=== PATIENT | male | born 1995 | race African-American/Black ===

== ENCOUNTER 2021-01-29 19:08 | Emergency (ER) | payer BC, SELFPAY ==
--- NOTE | ~2021-01-29 | XR_ITS ---
EXAMINATION: XR finger 3rd RT min 2V EXAM DATE: 01/29/2021 19:30 INDICATION: rt 3rd digit on rt hand, swelling at middle interphalangeal joint. No known recent injury provided at this time. TECHNIQUE: Right 3rd finger frontal, lateral and oblique projections obtained and reviewed. There is no prior study for comparison. FINDINGS: There is swelling over the right 3rd proximal interphalangeal joint. Possible small amount of periarticular erosion at the head of the right 3rd proximal phalanx. This finding has been indica eddie, marked on the examination for review, clinical correlation. No overhanging edges, adjacent conner neralization, proximal interphalangeal joint space widening or loss or other suspicious findings. IMPRESSION: Possible small periarticular erosion at the head of the right 3rd proximal phalanx, nons pecific arthritis. Please clinically correlate. Reviewed, dictated and finalized at location A. IMPRESSION: Possible small periarticular erosion at the head of the right 3rd proximal phalanx, nonspecific arthritis. Please clinically correlate.
[2021-01-29 19:21] VITALS: BP 110/75; PULSE 60; RESP 16; TEMP 36.8; O2SAT 100
--- NOTE | 2021-01-29 19:25 | ED.UPPEXIN ---
HPI - Extremity Injury (Upper) General Chief Complaint: Extremity Injury, Upper Stated Complaint: Swollen Finger Time Seen by Provider: 01/29/21 19:26 Source: patient and RN notes reviewed Mode of arrival: ambulatory Limitations: no limitations History of Present Illness HPI narrative: 25-year-old male presents to the [facility] with complaints of pain and swelling to PIP right middle. Injury onset it started a few weeks ago has been icing it with little relief. States that he bowls quite a bit and thinks this is his main finger he uses. Has full range of motion, tenderness to the joint. Mild swelling noted. Sensation intact distal to swelling capillary refill under 2 seconds Related Data Allergies Allergy/AdvReac Type Severity Reaction Status Date / Time shellfish derived Allergy Swelling Verified 01/29/21 19:50 of Lip/Tongue/Throat Review of Systems Review of Systems: All systems reviewed & are unremarkable except as noted in HPI and below Constitutional: Constitutional: Reports no additional constitutional complaints Eyes: Eyes: Reports no additional eye complaints ENT: Reports system reviewed and no additional complaints, except as documented Cardiovascular: Cardiovascular: Reports no additional cardiovascular complaints Respiratory: Respiratory: Reports no additional respiratory complaints Musculoskeletal: Musculoskeletal: Reports as per HPI Comments: Middle finger PIP joint right hand Integumentary/Breasts: Skin/Breast: Reports system reviewed and no additional complaints, except as docu, Denies erythema and Denies rash Neurologic: Reports system reviewed and no additional complaints, except as documented Psychiatric: Psychiatric: Reports no additional psychiatric complaints Allergic/Immunologic: Allergic/Immunologic: Reports no additional allergic/immunologic complaints PMFSH Comments At the time of my signature, I reviewed and agree with the nursing past medical, surgical, social, and family history. There is no relevant family history pertinent to the patient complaint. Exam Const: General: healthy appearing, no acute distress and alert Nutritional Appearance: well nourished Orientation/consciousness: patient oriented x3 Limitations: no limitations HENMT: Head: normal to inspection Eyes: Conjunctivae: conjunctivae normal Pupils: Equal, round and reactive pupils present Neck: Neck: normal visual inspection, no lymphadenopathy and no meningeal signs Chest: Chest palpation & inspection: normal inspection of the chest Resp: Effort & Inspection: normal respiratory effort and no use of accessory muscles Auscultation: clear to auscultation bilaterally Cardio: Rate: regular rate Rhythm: regular rhythm Back/Spine/Pelvis: Back: no CVA tenderness Skin: General skin exam: normal color Rashes: no rashes Wounds: no wounds Neuro: General: patient oriented x3, moves all extremities, no meningeal signs and no focal motor deficits Speech: normal speech Gait exam (Neuro): Normal gait present Extrem: General: normal to inspection Right upper extremity: Extremity exam: right hand tendon exam normal, vascular exam, normal ROM of fingers and swelling of the 3rd digit at the PIP joint; no unusual warmth, no abrasions, no lacerations and no ecchymosis Psych: Appearance: grossly normal and well kempt Mental Status: mental status grossly normal Affect: normal affect Attitude: cooperative Thought content: Yes Normal thought content present Course Course Emergency Course: Discharge instructions reviewed with patient, as well as provided in writing per nursing staff. The instructions also include specific and strict return/GO TO THE ER as well as f/u information. All questions have been answered, and the patient deny any further questions with discharge and discharge plan. Vital Signs Vital signs: Vital Signs Temperature 98.3 F 01/29/21 19:21 Pulse Rate 60 01/29/21 19:21 Respiratory Rat
== END 2021-01-29 19:54 | disposition home or self-care (01) ==
PROVIDERS: Emergency Provider Nurse Practitioner; PCP Physician Assistant
DX: M79.645 Pain in left finger(s) (principal); M25.442 Effusion, left hand
CPT/HCPCS: 73140; 99213; G0463

== ENCOUNTER 2022-09-05 12:29 | Emergency (ER) | payer BC, SELFPAY ==
[2022-09-05] VITALS (17 sets, daily range): BP systolic 123–127; BP diastolic 72–86; PULSE 61–86; RESP 9–25; O2SAT 98–100
--- NOTE | ~2022-09-05 | XR_ITS ---
EXAMINATION: XR chest 2V 09/05/2022 12:50 INDICATION: Left-sided chest pain PROCEDURE: 2 view chest COMPARISON: No prior studies for comparison. FINDINGS: The lungs are clear. The cardiomediastinal silhouette is within normal limits. There are no pleural effusions. There is no pneumothorax suspected. IMPRESSION: 1: NO ACUTE CARDIOPULMONARY DISEASE. Reviewed, dictated and finalized at location L. RVISOR OFFSET PLATE PREPARATION
--- NOTE | 2022-09-05 12:32 | ECG_ITS ---
Measurements Intervals [place] Rate: 69 P: 71 PA: 148 QRS: 63 QRSD: 115 T: 35 QT: 367 QTc: 395 Interpretive Statements SINUS RHYTHM WITH SINUS ARRHYTHMIA POSSIBLE RIGHT VENTRICULAR CONDUCTION DELAY [RSR (QR) IN V1/V2] VOLTAGE CRITERIA FOR LVH [MEETS CRITERIA IN ONE OF: R(aVL), S(V1), R(V5), R (V5/V6)+S(V1)] NONSPECIFIC ST & T-WAVE ABNORMALITY ABNORMAL ECG NO PREVIOUS ECG AVAILABLE FOR COMPARISON Electronically Signed On 09-05-2022 12:42:06 STACKER STRAIGHTENER by eNri Mariee M.D.
[2022-09-05 12:52] LABS: Basophils Absolute Auto 0.1 K/mm3 (0.0-0.1); Basophils Percent Auto 1.4 % (0.2-1.2); Eosinophils Absolute Auto 0.1 K/mm3 (0-0.3); Eosinophils Percent Auto 1.4 % (0-4.4); Hematocrit 44.6 % (42.0-52.0); Hemoglobin 15.4 g/dL (14.0-18.0); Immature Granulocyte Absolute 0.01 K/mm3 (0.00-0.031); Immature Granulocyte Percent A 0.2 % (0-0.5); Lymphocytes Absolute Auto 1.98 K/mm3 (0.9-3.2); Lymphocytes Percent Auto 45.4 % (18.3-44.2); Mean Corpuscular HGB Conc 34.5 g/dl (32-36); Mean Corpuscular Hemoglobin 30.2 pg (26-34); Mean Corpuscular Volume 87.5 fl (80-100); Mean Platelet Volume 8.2 fl (7.4-10.4); Monocytes Absolute Auto 0.4 K/mm3 (0.1-0.6); Monocytes Percent Auto 9.9 % (2.6-8.5); Neutrophils Absolute Auto 1.8 K/mm3 (1.3-6.7); Neutrophils Percent Auto 41.7 % (45.5-73.1); Platelet Count Result 238 k/mm3 (150-375); Red Cell Distribution Width 12.6 % (11.5-14.5); White Blood Count 4.4 K/mm3 (4.5-10.0)
[2022-09-05 13:06] LABS: Alanine Aminotransferase 39 U/L (6-50); Albumin Level 4.9 g/dL (3.5-5.1); Alkaline Phosphatase 57 U/L (38-126); Anion Gap 6 mmol/L (8-16); Aspartate Amino Transferase 33 U/L (17-59); Bilirubin,Total 0.9 mg/dL (0.2-1.3); Blood Urea Nitrogen 18 mg/dL (9-20); Calcium 9.3 mg/dL (8.4-10.2); Carbon Dioxide 31 mmol/L (22-30); Chloride 103 mmol/L (98-107); Estimated CRCL calculation 103 ml/min; Estimated Glomerular Filt Rate > 60; Glucose 88 mg/dL (65-110); Lipase 169 U/L (23-300); Potassium 3.9 mmol/L (3.4-5.0); Sodium 140 mmol/L (137-145)
[2022-09-05 13:10] LABS: INR 1.1; Partial Thromboplastin Time 28.5 SECONDS (22.3-36.8); Prothrombin Time 13.3 Seconds (11.1-14.7)
[2022-09-05 13:17] LABS: Troponin I 0.019 ng/mL (0.000-0.034)
--- NOTE | 2022-09-05 13:56 | ED.GENADULT ---
HPI - General Adult General Chief complaint: Chest Pain Stated complaint: migraine and chest discomfort x 2 weeks Time Seen by Provider: 09/05/22 12:43 History of Present Illness HPI narrative: 26-year-old male presented to the emergency department for evaluation of left-sided chest pain. Patient states he has had the intermittent left-sided chest pain almost daily over the last few weeks. Patient states that it occurs at rest. Patient states that prior to arrival he had approximately 10 to 15 minutes of left-sided chest pain. Patient reports chest pain is not worsened with exertion. Patient states during his workout sessions he does not have any chest pain. Patient denies any prior history of coronary artery disease. Patient denies any use of amphetamines or cocaine. Patient denies any significant past medical history. Related Data Allergies Allergy/AdvReac Type Severity Reaction Status Date / Time meloxicam AdvReac Headache Verified 09/05/22 12:31 Review of Systems Review of Systems: CONSTITUTIONAL: Denies fever, chills, or sweats. EYES: Denies visual changes, redness, or discharge. ENT: Denies rhinorrhea, congestion, sore throat, or otalgia. CARDIOVASCULAR: See HPI RESPIRATORY: Denies cough or dyspnea. GASTROINTESTINAL: Denies abdominal pain, nausea, vomiting, or diarrhea. GENITOURINARY: Denies dysuria or hematuria. SKIN: Denies rash or itching. MUSCULOSKELETAL: Denies back pain, joint pain, or myalgia. NEUROLOGIC: Denies headache, numbness, or weakness. Exam Narrative: APPEARANCE: Well appearing, no pain, no distress, well-nourished. HEAD: normocephalic, atraumatic. EYES: PERRLA/EOMI, conjunctivae clear. NOSE: Normal no drainage EARS:TMS clear with good light reflex. THROAT: Pharynx clear, no exudate. NECK: Supple. No adenopathy, no masses. RESPIRATORY: Airway patent, respirations nonlabored. Clear to auscultation bilaterally, no rales, rhonchi, wheezing. CARDIOVASCULAR: Regular rate and rhythm without murmurs rubs or gallops. ABDOMINAL: Soft, nontender, nondistended, normal bowel sounds MUSCULOSKELETAL: Moves all extremities. Strength/ROM intact, No edema, No calf tenderness. NEURO: Alert. Cranial nerves II through XII intact. Grossly intact SKIN: Warm, dry. Normal Color Course Course Emergency Course: -year-old male with intermittent chest pain. Patient's EKG showed normal sinus rhythm. Patient was afebrile with no leukocytosis. Patient's D-dimer was not elevated. Patient's delta troponins were within normal limits. TSH was not elevated. Chest x-ray showed no acute cardiopulmonary disease. Patient was updated on the results of his work-up and was encouraged of close follow-up with his primary care physician. All questions and concerns were addressed. Vital Signs Vital signs: Vital Signs Pulse Rate 65 09/05/22 12:32 Respiratory Rate 16 09/05/22 12:32 Blood Pressure 123/81 09/05/22 12:32 Pulse Oximetry 100 09/05/22 12:32 Oxygen Delivery Room Air 09/05/22 12:32 Pulse Rate 67 09/05/22 17:00 Respiratory Rate 15 09/05/22 17:00 Blood Pressure 124/72 09/05/22 17:00 Pulse Oximetry 98 09/05/22 17:00 Oxygen Delivery Room Air 09/05/22 12:32 Medical Decision Making Vital Signs Vital Signs: Vital Signs Pulse Rate 65 09/05/22 12:32 Respiratory Rate 16 09/05/22 12:32 Blood Pressure 123/81 09/05/22 12:32 Pulse Oximetry 100 09/05/22 12:32 Oxygen Delivery Room Air 09/05/22 12:32 Pulse Rate 67 09/05/22 17:00 Respiratory Rate 15 09/05/22 17:00 Blood Pressure 124/72 09/05/22 17:00 Pulse Oximetry 98 09/05/22 17:00 Oxygen Delivery Room Air 09/05/22 12:32 Lab Data 09/05/22 12:46 09/05/22 12:46 Labs: Lab Results 09/05/22 09/05/22 09/05/22 Range/Units 12:43 12:46 12:46 WBC 4.4 L (4.5-10.0) K/mm3 RBC 5.10 (4.6-6.20) M/mm3 Hgb 15.4 (14.0-18.0) g/dL Hct 44.6 (42.0-52.0) % MCV 87
[2022-09-05 16:08] LABS: Amphetamine Screen Urine Negative (Negative); Barbiturate Screen Urine Negative (Negative); Benzodiazepines Screen Urine Negative (Negative); Cannabinoid Screen Urine Negative (Negative); Cocaine Screen Urine Negative (Negative); Methadone Screen Urine Negative (Negative); Opiate Screen Urine Negative (Negative); Phencyclidine Screen Urine Negative (Negative)
[2022-09-05 16:19] LABS: Troponin I 0.024 ng/mL (0.000-0.034)
== END 2022-09-05 17:21 | disposition home or self-care (01) ==
PROVIDERS: Physician Assistant; Emergency Provider Emergency Medicine; PCP Physician Assistant
DX: R07.89 Other chest pain (principal); R94.31 Abnormal electrocardiogram [ECG] [EKG]
CPT/HCPCS: 36415; 71046; 80053; 80307; 83690; 83735; 84443; 84484; 85025; 85380; 85610; 85730; 93005; 99284

== ENCOUNTER 2022-09-10 13:13 | Emergency (ER) | payer OTHER, BC, SELFPAY ==
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
[2022-09-10 13:14] VITALS: BP 134/83; PULSE 108; RESP 18; TEMP 37.3; O2SAT 100
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
[2022-09-10] MEDS: KETOROLAC 15 MG/ML VIAL (*BKC) IV PUSH (15:16)
[2022-09-10 15:18] VITALS: BP 124/84; PULSE 76; RESP 14; O2SAT 100
[2022-09-10] MEDS: CYCLOBENZAPRINE HCL 5 MG TABLET PO (15:51)
[2022-09-10] MEDS: MORPHINE SULFATE (*CRX) 4 MG/ML INJ IV PUSH (16:35)
[2022-09-10 16:42] VITALS: BP 126/74; PULSE 84; RESP 14; O2SAT 99
== END 2022-09-10 16:43 | disposition home or self-care (01) ==
PROVIDERS: Emergency Provider Physician Assistant; PCP Physician Assistant
DX: R51.9 Headache, unspecified (principal); M54.2 Cervicalgia; M54.50 Low back pain, unspecified; M25.531 Pain in right wrist; V89.2XXA Person injured in unspecified motor-vehicle accident, traffic, initial encounter
CPT/HCPCS: 70450; 72125; 72131; 73110; 96365; 96375; 99284; A9270; J0131; J1885; J2270

== ENCOUNTER 2024-06-05 03:34 | Emergency (ER) | payer BC, SELFPAY ==
[2024-06-05 03:39] VITALS: BP 118/67; PULSE 72; RESP 19; TEMP 36.4; O2SAT 100
[2024-06-05 04:23] LABS: Add Urine Microscopic? NO; Appearance Urine Clear (Clear); Bilirubin Urine Negative (Negative); Blood Urine Negative (Negative); Color Urine Yellow (Yellow); Glucose Urine UA Negative (Negative); Ketones Urine Negative (Negative); Leukocyte Esterase Ur Negative LEU/UL (Negative); Nitrate Urine Negative (Negative); Protein Urine Negative (Negative); Specific Grav Ur 1.018 (1.001-1.035); pH Urine 5.5 (5.0-9.0)
[2024-06-05 05:51] LABS: Chlamydia trachomatis NOT DETECTED (NOT DETECTE); Neisseria gonorrhoeae PCR NOT DETECTED (NOT DETECTE)
--- NOTE | 2024-06-05 06:12 | ED.MALEGU ---
HPI - Male Genitourinary General Chief complaint: Urogenital-Male Stated complaint: itch to private area Time Seen by Provider: 06/05/24 04:04 History of Present Illness HPI Narrative: 28-year-old male presenting to the emergency depart with complaint of itching his private genitourinary region. He states that he has been having some itching ever since using new lubricant that was silicone based. Denies any pain or tears urination or discharge. No new sexual partners. No concerns for STDs. He states he has had similar episodes like this happening to in the past when you some specific lupus. Endorses some skin irritation and occasional peeling of the skin. Was concerned today as he is having some itchiness in his urine the urinary area and in the perirectal area. Denies any discharge or bleeding. No fevers. Was otherwise in his normal state of health. No anal receptive intercourse, no new sexual partners. Related Data Allergies Allergy/AdvReac Type Severity Reaction Status Date / Time meloxicam AdvReac Headache Verified 06/05/24 03:42 Review of Systems Review of Systems: As reviewed above in HPI Exam Narrative: GENERAL: [Well-appearing, well-nourished, and in no acute distress.] HEAD: [Normocephalic, atraumatic.] EYES: [PERRLA and EOMI.] ENT: Nares clear, no rhinorrhea or epistaxis. Mucous membranes moist. NECK: Supple. CHEST: [Clear to auscultation. No respiratory distress.] HEART: [Regular rate and rhythm]. No murmur heard. [Normal peripheral pulses.] ABDOMEN: [Soft, nondistended], [nontender], [No rigidity or guarding] GENITOURINARY: Genitourinary examination shows no lesions, swelling, tenderness along the penile shaft or scrotum. No redness or erythema. No inguinal masses or lymphadenopathy. No appreciable perirectal or perianal lesions or rashes. EXTREMITIES: Normal range of motion. [No edema.] SKIN: Warm, dry, no rash. NEURO: [No focal deficits]. Alert and oriented [x3.] PSYCH: [Normal mood and affect.] Course Vital Signs Vital signs: Vital Signs Temperature 36.4 C 06/05/24 03:39 Pulse Rate 72 06/05/24 03:39 Respiratory Rate 19 06/05/24 03:39 Blood Pressure 118/67 06/05/24 03:39 Pulse Oximetry 100 06/05/24 03:39 Oxygen Delivery Room Air 06/05/24 03:39 Temperature 36.4 C 06/05/24 03:39 Pulse Rate 72 06/05/24 03:39 Respiratory Rate 19 06/05/24 03:39 Blood Pressure 118/67 06/05/24 03:39 Pulse Oximetry 100 06/05/24 03:39 Oxygen Delivery Room Air 06/05/24 03:39 MDM - Male Genitourinary MDM Narrative Medical decision making narrative: 28-year-old male presenting with irritation and itching in his genitourinary region after using new lubricant. He states he has had issues with previous lubricants and causing him some skin irritation and sloughing of skin occasionally. No concerns for STDs at this time, denies any discharge or penile pain, your urinary symptoms. No new sexual partners or anal intercourse. He has a benign examination in general urinary assessment shows no concerning lesions or rash. Endorses trying some topical moisturizing ointment which did help previously. Has taken a Benadryl at home which also helps with the itchiness. Gonorrhea chlamydia and urinary analysis was ordered. These were all negative and unremarkable. Patient at this time is stable for discharge home and was given a prescription for topical Benadryl for his localized skin irritation likely secondary to the contact exposure of the new liver continues using. He was told to switch to a different or water based or any other lubricants to see if the irritation improved without contact. Was given follow-up instructions and told to return with any new or worsening concerns at any time. Medical Records Attestation: I reviewed the patient's medical records. Lab Data Attestation: I reviewed the patient's lab results. Labs: Lab Results 06/05/24 06/05/24 Range/Units 04:14 04:15 Urine Color Yellow (Yellow) Urine Appearance Clear (Clear) Urine pH 5.5 (5.0-9.0) Ur Specific [place] 1.018 (1.001-1.035) Urine Protein Negative (Negative) mg/dL Urine Glucose (UA) Negative (Negative) mg/dL Urine Ketones Negative (Negative) mg/dL Ur Blood (Man) Negative (Negative) Urine Nitrate Negative (Negative) Urine Bilirubin Negative (Negative) Urine Urobilinogen 1.0 (<2.0) mg/dL Leukocyte Esterase Rfl Negative (Negative) ANEUDY/UL C. trachomatis (PCR) Not detected (NOT DETECTE) N. gonorrhoeae (PCR) Not detected (NOT DETECTE) Discharge Plan Discharge Clinical Impression: Skin irritation due to topical agent Patient Disposition: Home, Self-Care Condition: Stable Instructions: Antibiotic Form, Itchy Skin (ED) Additional Instructions: Your laboratory studies were very reassuring, no urinary infection or signs of any STD. We will treat you for irritation to the area region with some topical Benadryl cream. The a patient is likely secondary to the lubricant eye you been using and you have no signs of any kind of significant irritation or rash. Please follow-up with your primary care provider or return with any new or worsening concerns. Prescriptions: New Benadryl 2 % gel 1 applic topical BID PRN (Reason: skin irritation) Qty: 103 0RF No Action ibuprofen 600 mg tablet 600 mg PO Q6H PRN (Reason: pain) Qty: 30 0RF cyclobenzaprine 5 mg tablet 5 mg PO HS PRN (Reason: muscle spasm) Qty: 10 0RF naproxen 250 mg tablet 250 mg PO BID PRN (Reason: pain) Qty: 14 0RF Follow-up/Referrals: Tia,REJI Argueta [Primary Care Provider] - Time of Disposition: 06:07
== END 2024-06-05 06:17 | disposition home or self-care (01) ==
PROVIDERS: Emergency Provider Student in an Organized Health Care Education/Training Program; PCP Physician Assistant
DX: L24.89 Irritant contact dermatitis due to other agents (principal)
CPT/HCPCS: 81003; 87491; 87591; 99283

== ENCOUNTER 2024-08-20 20:17 | Emergency (ER) | payer BC, SELFPAY ==
--- NOTE | ~2024-08-20 | US_ITS ---
EXAMINATION: US scrotum doppler DATE: 08/20/2024 22:45 INDICATION: Right-sided Testicular pain TECHNIQUE: Sonographic evaluation of the scrotum was performed assessing grayscale appearance and col or Doppler flow. Spectral Doppler evaluation was also performed. COMPARISON: None. FINDINGS: RIGHT TESTICLE: The right testicle measures 3.4 x 2.3 x 3.1 cm. Dopplerable flow is present. Trace right-sided hydrocele is noted. RIGHT EPIDIDYMIS: The right epididymis measures 14.2 mm. LEFT TESTICLE: The left testicle measures 4.2 x 1.9 x 3.3 cm. Dopplerable flow is demonstrated. Trace left-sided hydrocele is present. LEFT EPIDIDYMIS: The left epididymis measures 10.3 mm. IMPRESSION: Trace hydrocele detected bilaterally. Otherwise, unremarkable sonographic evaluation of the scrotum, as detailed above. Reviewed, dictated and finalized at location A. CTOR OF SOFTWARE ENGINEERING IMPRESSION: Trace hydrocele detected bilaterally. Otherwise, unremarkable sonographic evaluation of the scrotum, as detailed prince chavez
--- OUTSIDE RECORDS SUMMARY | 2024-08-20 20:20 | XMS_ITS | Encounter Summary ---
Author Organization [facility] Healthcare Address [address] [place] [address] Care Team Providers Care Bioprocess Engineer Name Role Phone Ellie Weber Primary Care Provider [phone] Encounter Details Date Type Department Care Team (Late st Contact Info) Description 11/24/2023 Telephone [facility] Family Medicine [address] [place] [address] Ellie Weber PA [address] [place] [address] Social History Tobacco Use Types Packs/Day Years Used Date Smoking Tobacco: Never Smokeless Tobacco: Never Alcohol Use Standard Drinks/Week Comments Yes 0 (1 standard drink = 0.6 oz pur e alcohol) social AUDIT-C Answer Date Recorded Frequency of Alcohol Consumption Not on file 10/23/2023 Q2: How many drinks containi ng alcohol do you have on a typical day when you are drinking? 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
--- OUTSIDE RECORDS SUMMARY | 2024-08-20 20:20 | XMS_ITS | Clinical Summary ---
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 End Date Ellie Weber PA [address] [facility] [address] [address] [place] [address] PCP - General Internal Medicine 12/11/18
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
--- OUTSIDE RECORDS SUMMARY | 2024-08-20 20:20 | XMS_ITS | Referral Summary ---
Author Organization [facility] Address [address] [place] [id number] Care Team Providers Care Senior Cost Accountant Name Role Phone Ellie Weber Primary Care Provider [phone]- [phone] Encounters Date Type Department Care Team Description 07/13/2024 Telephone [facility] Medicine [address] [place] [address] [address] [place] [address] Ellie Weber PA Medical Question/Miscellaneous 06/15/2024 Nurse Triage [facility] [address] [place] [address] [address] [place] [address] Ellie Weber PA from Last 3 Months Allergies Active Allergy Reactions Criticality Noted Date [...] (04/11/2024 12:36 PM CDT): Patient saw a mortgage loan counselor and told the rash was eczema. Has [...] PPI Assessment & Plan (09/10/2020 9:45 AM IT PROJECT MANAGER): Discussed GERD at length including anatomy, behavioral changes (raise HOB, meal timings), dietary changes and medication options. Reviewed risks, benefits alternatives, side effects and proper use. Followup if sxs worsen or has hematochezia or hematemeis. Vertigo 08/19/2020 Assessment & Plan (09/10/2020 9:45 AM IT PROJECT MANAGER): Improving with the vestibular therapy Assessment & Plan (08/19/2020 2:12 PM IT PROJECT MANAGER): Patient has sxs consistent with vertigo. Unable [...] He has a psychiatry appointment tomorrow in [facility]. He is frustrated because he feels [...] hours because these visits are located in [facility] and [place], [place]. Advised he could increase the BuSpar [...] assistance. Provided name and contact information at [facility] further same-day behavioral/mental health clinic as this is always available for evaluation as a walk in. He was thankful for the information will contact if he needs more assistance Assessment & Plan (05/18/2023 1:28 PM IT PROJECT MANAGER): Patient has discontinued all his mental health [...] tid Assessment & Plan (09/10/2020 9:45 AM IT PROJECT MANAGER): See anxiety Assessment & Plan (01/10/2019 10:54 [...] tid Assessment & Plan (09/10/2020 9:45 AM IT PROJECT MANAGER): Start buspar 7.5tid Reviewed risks, benefit, alternatives, side effects and proper use. Assessment & Plan (08/19/2020 2:10 PM IT PROJECT MANAGER): Discussed medication for anxiety. Declines at this [...] 03/31/2024 Assessment & Plan (05/18/2023 1:28 PM IT PROJECT MANAGER): Neck pain seems to be continuing to [...] 023 Assessment & Plan (09/18/2022 3:28 PM IT PROJECT MANAGER): Weight/BMI is in healthy range. Continue healthy [...] 03/31/2024 Assessment & Plan (09/17/2020 7:34 PM IT PROJECT MANAGER): Already on Valtrex. Will try a little lotrisone to the area as may be a yeast component. If persists, will need an appointment for exam. May consider HSV antibodies. Denies STD/he is not high risk. Assessment & Plan (08/19/2020 2:09 PM IT PROJECT MANAGER): Check HSV IGg and IGM for TypeI and Type II. (HERPES SELECT) Continue valtrex. BMI 20.0-20.9, adult 10/21/2019 021 Assessment & Plan (09/10/2020 9:45 AM IT PROJECT MANAGER): Weight/BMI is in healthy range. Continue healthy lifestyle to maintain. Conjunctivitis 10/21/2019 03/31/2024 Assessment & Plan (10/21/2019 11:34 AM CDT): Conjunctivitis vs abrasion. Will treat with antibiotic drops. 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 Call if sxs worsen or don't resolve. 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 Assessment & Plan (10/15/2021 2:06 PM CDT): Continue Valtrex 500 mg 1 daily Has not had an outbreak in a long time Assessment & Plan (09/10/2020 9:45 AM IT PROJECT MANAGER): Increase to valtrex 1gm daily Possible exposure to STD 01/30/2016 Dysuria 01/30/2016 04/11/2024 Chicken pox 02/06/2009 08/19/2020 Overview (06/01/2018): Overview: 1998 Chicken pox 02/06/2009 03/31/2024 Overview (06/03/2022): 1998 Immunizations Name Administration Dates Next Due DTP [...] 04/11/1998, 7,10/25/1994,03/08 Polio, Unspecified 04/11/1998,03/17/1997 Tdap 02/20/2021,02/09/2007 Social History Tobacco Use Types Packs/Day Years [...] on file Legal Sex Male 12:13 PM IT PROJECT MANAGER Gender Identity Not on file Sexual Orientation [...] 03/31/2024 10:42 AM CDT Plan of Treatment Not on file Procedures Procedure Name Priority Date/Time Associated Diagnosis Comments SCAN - LABS 06/05/2024 from Last 3 Months Results * SCAN - LABS (06/05/2024) Provider Scanning Final Result from Last 3 Months Insurance [employer] [place] [employer] [place] [facility] Care Teams Senior Cost Accountant Relationship Specialty Start Date End Date Ellie Weber PA [address] [facility] [address] [place] [address] PCP - General Internal Medicine 12/11/18
--- OUTSIDE RECORDS SUMMARY | 2024-08-20 20:20 | XMS_ITS | Referral Summary ---
Author Organization [facility] Address [address] [facility] [place] [address] Care Team Providers Care Diesel Locomotive Crane Operator Name Role Phone Ellie Weber PA-C Primary Care Provider [phone] -[phone] Source Comments [facility],non-[facility] Affiliates and Associated Physician Practices is amultiple site organization consisting of ambulatory clinics and hospital sitesin [place], [place], [place] and [place]. This disclosure is being madepursuant to the Care Everywhere program and may not contain all information available regarding this patient. Last updated 18.[facility] [employer] Allergies Active Allergy Reactions Criticality Noted Date [...] 01/31/2024 8:44 AM CDT Plan of Treatment Not on [...] CDT 09/25/2016 Narrative Resulting Agency Comment [facility] [address] [facility] [id number] Martin Ngo MD LAB - SEROLOGY ORDER [facility] ACCOUNT BILL [address] [place] [address] from Last 3 Months or Most Recently Relevant to Health Maintenance Care Teams Diesel Locomotive Crane Operator Relationship Specialty Start Date End Date Ellie Weber PA-C [address] [facility] [address] [place] [address] PCP - General Physician Manager Shell 02/07/22
[2024-08-20 20:33] VITALS: BP 113/63; PULSE 73; RESP 18; TEMP 36.6; O2SAT 100
--- NOTE | 2024-08-20 20:35 | ED.MALEGU ---
HPI - Male Genitourinary General Chief complaint: Urogenital-Male <Sanjuana Lam PA-C - Last Filed: 08/21/24 01:21> Stated complaint: groin pain <Sanjuana Lam PA-C - Last Filed: 08/21/24 01:21> Time Seen by Provider: 08/20/24 20:35 <Sanjuana Lam PA-C - Last Filed: 08/21/24 01:21> Focused HPI: This is a 28-year-old male that presents to the emergency department for right testicular pain. Ongoing over the last 2 days. Denies fevers, swelling, dysuria, or hematuria. GENERAL: Well-appearing, well-nourished, and in no acute distress. HEAD: Normocephalic, atraumatic. CHEST: Clear to auscultation. ?No respiratory distress. HEART: Regular rate and rhythm.? NEURO: ?Alert and oriented x3. Patient screened in triage and initial orders placed.? ?Additional care and disposition to be based upon?diagnostic testing and treatment. <Sanjuana Lam PA-C - Last Filed: 08/21/24 01:21> Related Data Allergies/Adverse reactions: Allergies Allergy/AdvReac Type Severity Reaction Status Date / Time meloxicam AdvReac Headache Verified 06/05/24 03:42 <Sanjuana Lam PA-C - Last Filed: 08/21/24 01:21> Review of Systems Review of Systems: All systems reviewed & are unremarkable except as noted in HPI and below <Sanjuana Lam PA-C - Last Filed: 08/21/24 01:21> Exam Narrative: APPEARANCE: No apparent distress. Head: atraumatic. EYES: EOMI, NOSE: Atraumatic NECK: Trachea midline RESPIRATORY: No increased rate of breathing CTAB CARDIOVASCULAR: RRR, ABDOMINAL: Non-distended soft nontender, no CVA tenderness General exam: Normal external genitalia, previous circ reflex intact bilaterally, testicles have a normal lie, tenderness over the posterior aspect of the right testicle, no appreciable hernias MUSCULOSKELETAl: No obvious deformities NEURO: Alert. Moving 4/4 extremities SKIN:: Warm, dry. Normal color PSYCHIATRIC: Normal affect <Eduardo Fung MD - Last Filed: 08/21/24 00:57> Course Vital Signs Vital signs: Vital Signs Temperature 97.9 F 08/20/24 20:33 Pulse Rate 73 08/20/24 20:33 Respiratory Rate 18 08/20/24 20:33 Blood Pressure 113/63 08/20/24 20:33 Pulse Oximetry 100 08/20/24 20:33 Oxygen Delivery Room Air 08/20/24 20:33 Temperature 97.9 F 08/20/24 20:33 Pulse Rate 72 08/21/24 01:01 Respiratory Rate 17 08/21/24 01:01 Blood Pressure 115/66 08/21/24 01:01 Pulse Oximetry 100 08/21/24 01:01 Oxygen Delivery Room Air 08/20/24 20:33 <Sanjuana Lam PA-C - Last Filed: 08/21/24 01:21> Vital Signs Temperature 97.9 F 08/20/24 20:33 Pulse Rate 73 08/20/24 20:33 Respiratory Rate 18 08/20/24 20:33 Blood Pressure 113/63 08/20/24 20:33 Pulse Oximetry 100 08/20/24 20:33 Oxygen Delivery Room Air 08/20/24 20:33 Temperature 97.9 F 08/20/24 20:33 Pulse Rate 72 08/21/24 01:01 Respiratory Rate 17 08/21/24 01:01 Blood Pressure 115/66 08/21/24 01:01 Pulse Oximetry 100 08/21/24 01:01 Oxygen Delivery Room Air 08/20/24 20:33 <Eduardo Fung MD - Last Filed: 08/21/24 00:57> MDM - Male Genitourinary MDM Narrative Medical decision making narrative: -Course: 28-year-old male presenting with right-sided testicle pain. Physical exam consistent with epididymitis. Ultrasound and urine were negative. STD testing was negative. Patient will be treated a course of Levaquin and NSAIDs. Urology follow-up -DDX includes but is not limited to: Epididymitis, orchitis, hernia <Eduardo Fung MD - Last Filed: 08/21/24 00:57> Lab Data Result diagrams: 08/20/24 20:53 08/20/24 20:53 <Sanjuana Lam PA-C - Last Filed: 08/21/24 01:21> Labs: Lab Results 08/20/24 08/20/24 Range/Units 20:53 23:10 WBC 6.1 (4.5-10.0) K/mm3 RBC 4.87 (4.6-6.20) M/mm3 Hgb 14.8 (14.0-18.0) g/dL Hct 42.1 (42.0-52.0) % MCV 86.4 (80-100) fl MCH 30.4 (26-34) pg MCHC 35.2 (32-36) g/dl RDW 12.9 (11.5-14.5) % Plt Count 253 (150-375) k/mm3 MPV 8.2 (7.4-10.4) fl Immature Gran % (Auto) 0.2 (0-0.5) % Neut % (Auto) 43.7 L (45.5-73.1) % Lymph % (Auto) 47.3 H (18.3-44.2) % [place] % (Auto) 6.7 (2.6-8.5) % Eos % (Auto) 1.1 (0-4.4) % Baso % (Auto) 1.0 (0.2-1.2) % Lymph # (Auto) 2.90 (0.9-3.2) K/mm3 [place] # (Auto) 0.4 (0.1-0.6) K/mm3 Eos # (Auto) 0.1 (0-0.3) K/mm3 Baso # (Auto) 0.1 (0.0-0.1) K/mm3 Abs Immat Gran (auto) 0.01 (0.00-0.031) K/mm3 Absolute Neuts (auto) 2.7 (1.3-6.7) K/mm3 Absolute Nucleated RBC 0.000 (0.0-0.012) K/mm3 Nucleated RBC % 0.0 (0.0-0.2) % Sodium 139 (137-145) mmol/L Potassium 3.5 (3.4-5.0) mmol/L Chloride 105 (98-107) mmol/L Carbon Dioxide 23 (22-30) mmol/L Anion Gap 11 (4-12) mmol/L BUN 16 (9-20) mg/dL Creatinine 0.80 (0.7-1.3) mg/dL Estim Creat Clear Calc 108 ml/min Estimated GFR > 60 (59 - ) Glucose 88 (65-110) mg/dL Calcium 9.0 (8.4-10.2) mg/dL Urine Color Yellow (Yellow) Urine Appearance Clear (Clear) Urine pH 5.5 (5.0-9.0) Ur Specific [place] 1.016 (1.001-1.035) Urine Protein Negative (Negative) mg/dL Urine Glucose (UA) Negative (Negative) mg/dL Urine Ketones Trace H (Negative) mg/dL Ur Blood (Man) Negative (Negative) Urine Nitrate Negative (Negative) Urine Bilirubin Negative (Negative) Urine Urobilinogen 0.2 (<2.0) mg/dL Leukocyte Esterase Rfl Negative (Negative) ANEUDY/UL C. trachomatis (PCR) Not detected (NOT DETECTE) N. gonorrhoeae (PCR) Not detected (NOT DETECTE) T. vaginalis (PCR) Not detected (NOT DETECTE) <Sanjuana Lam PA-C - Last Filed: 08/21/24 01:21> Lab Results 08/20/24 08/20/24 Range/Units 20:53 23:10 WBC 6.1 (4.5-10.0) K/mm3 RBC 4.87 (4.6-6.20) M/mm3 Hgb 14.8 (14.0-18.0) g/dL Hct 42.1 (42.0-52.0) % MCV 86.4 (80-100) fl MCH 30.4 (26-34) pg MCHC 35.2 (32-36) g/dl RDW 12.9 (11.5-14.5) % Plt Count 253 (150-375) k/mm3 MPV 8.2 (7.4-10.4) fl Immature Gran % (Auto) 0.2 (0-0.5) % Neut % (Auto) 43.7 L (45.5-73.1) % Lymph % (Auto) 47.3 H (18.3-44.2) % [place] % (Auto) 6.7 (2.6-8.5) % Eos % (Auto) 1.1 (0-4.4) % Baso % (Auto) 1.0 (0.2-1.2) % Lymph # (Auto) 2.90 (0.9-3.2) K/mm3 [place] # (Auto) 0.4 (0.1-0.6) K/mm3 Eos # (Auto) 0.1 (0-0.3) K/mm3 Baso # (Auto) 0.1 (0.0-0.1) K/mm3 Abs Immat Gran (auto) 0.01 (0.00-0.031) K/mm3 Absolute Neuts (auto) 2.7 (1.3-6.7) K/mm3 Absolute Nucleated RBC 0.000 (0.0-0.012) K/mm3 Nucleated RBC % 0.0 (0.0-0.2) % Sodium 139 (137-145) mmol/L Potassium 3.5 (3.4-5.0) mmol/L Chloride 105 (98-107) mmol/L Carbon Dioxide 23 (22-30) mmol/L Anion Gap 11 (4-12) mmol/L BUN 16 (9-20) mg/dL Creatinine 0.80 (0.7-1.3) mg/dL Estim Creat Clear Calc 108 ml/min Estimated GFR > 60 (59 - ) Glucose 88 (65-110) mg/dL Calcium 9.0 (8.4-10.2) mg/dL Urine Color Yellow (Yellow) Urine Appearance Clear (Clear) Urine pH 5.5 (5.0-9.0) Ur Specific [place] 1.016 (1.001-1.035) Urine Protein Negative (Negative) mg/dL Urine Glucose (UA) Negative (Negative) mg/dL Urine Ketones Trace H (Negative) mg/dL Ur Blood (Man) Negative (Negative) Urine Nitrate Negative (Negative) Urine Bilirubin Negative (Negative) Urine Urobilinogen 0.2 (<2.0) mg/dL Leukocyte Esterase Rfl Negative (Negative) ANEUDY/UL C. trachomatis (PCR) Not detected (NOT DETECTE) N. gonorrhoeae (PCR) Not detected (NOT DETECTE) T. vaginalis (PCR) Not detected (NOT DETECTE) <Eduardo Fung MD - Last Filed: 08/21/24 00:57> Imaging Data Radiologist's impression: ITS Impressions Scrotum Ultrasound 08/20/24 23:07 IMPRESSION: Trace hydrocele detected bilaterally. Otherwise, unremarkable sonographic evaluation of the scrotum, as detailed above. <SINAN Esquivel Last Filed: 08/21/24 01:21> Critical Care Time Critical Care Time Critical Care Time: No <SINAN Esquivel Last Filed: 08/21/24 01:21> Discharge Plan Discharge Clinical Impression: Epididymitis <SINAN Esquivel Last Filed: 08/21/24 01:21> Patient Disposition: Home, Self-Care <SINAN Esquivel Last Filed: 08/21/24 01:21> Condition: Stable <SINAN Esquivel Last Filed: 08/21/24 01:21> Instructions: Antibiotic Form, Testicle Pain (ED) <SINAN Esquivel Last Filed: 08/21/24 01:21> Additional Instructions: You were seen in the emergency department for testicle pain. Use [id number] Motrin and Tylenol for pain. Complete a course of levofloxacin and follow-up with urology in 2 weeks. Return if you develop severe testicle pain or any new or worsening symptoms. <SINAN Esquivel Last Filed: 08/21/24 01:21> Patient Language: Malaysian <SINAN Esquivel Last Filed: 08/21/24 01:21> Prescriptions: New levofloxacin 500 mg tablet 500 mg PO DAILY Qty: 10 0RF acetaminophen 500 mg tablet 1,000 mg PO TID PRN (Reason: maximiliano) 7 Days Qty: 42 0RF ibuprofen 800 mg tablet 800 mg PO TID PRN (Reason: pain) 7 Days Qty: 21 0RF No Action ibuprofen 600 mg tablet 600 mg PO Q6H PRN (Reason: pain) Qty: 30 0RF Benadryl 2 % gel 1 applic topical BID PRN (Reason: skin irritation) Qty: 103 0RF cyclobenzaprine 5 mg tablet 5 mg PO HS PRN (Reason: muscle spasm) Qty: 10 0RF naproxen 250 mg tablet 250 mg PO BID PRN (Reason: pain) Qty: 14 0RF <Sanjuana Lam PA-C - Last Filed: 08/21/24 01:21> Follow-up/Referrals: Catrachito Leonard MD [Physician] - 2 Weeks (Epididymitis) Tia,REJI Argueta [Primary Care Provider] - <Sanjuana Lam PA-C - Last Filed: 08/21/24 01:21>
[2024-08-20 20:58] LABS: Basophils Absolute Auto 0.1 K/mm3 (0.0-0.1); Eosinophils Absolute Auto 0.1 K/mm3 (0-0.3); Eosinophils Percent Auto 1.1 % (0-4.4); Hematocrit 42.1 % (42.0-52.0); Hemoglobin 14.8 g/dL (14.0-18.0); Immature Granulocyte Absolute 0.01 K/mm3 (0.00-0.031); Immature Granulocyte Percent A 0.2 % (0-0.5); Lymphocytes Percent Auto 47.3 % (18.3-44.2); Mean Corpuscular HGB Conc 35.2 g/dl (32-36); Mean Corpuscular Hemoglobin 30.4 pg (26-34); Mean Corpuscular Volume 86.4 fl (80-100); Mean Platelet Volume 8.2 fl (7.4-10.4); Monocytes Absolute Auto 0.4 K/mm3 (0.1-0.6); Monocytes Percent Auto 6.7 % (2.6-8.5); Neutrophils Absolute Auto 2.7 K/mm3 (1.3-6.7); Neutrophils Percent Auto 43.7 % (45.5-73.1); Platelet Count Result 253 k/mm3 (150-375); Red Blood Count 4.87 M/mm3 (4.6-6.20); Red Cell Distribution Width 12.9 % (11.5-14.5); White Blood Count 6.1 K/mm3 (4.5-10.0)
[2024-08-20 21:20] LABS: Anion Gap 11 mmol/L (4-12); Blood Urea Nitrogen 16 mg/dL (9-20); Carbon Dioxide 23 mmol/L (22-30); Chloride 105 mmol/L (98-107); Estimated CRCL calculation 108 ml/min; Estimated Glomerular Filt Rate > 60; Glucose 88 mg/dL (65-110); Potassium 3.5 mmol/L (3.4-5.0); Sodium 139 mmol/L (137-145)
--- OUTSIDE RECORDS SUMMARY | 2024-08-20 23:03 | XMS_ITS | Clinical Summary ---
Author Organization [facility] Address [address] [facility] [place] [address] Care Team Providers Care Bunch Breaker Machine Operator Name Role Phone Ellie Weber PA-C Primary Care Provider +1 -[phone] Source Comments [facility],non-[facility] Affiliates and Associated Physician Practices is amultiple site organization consisting of ambulatory clinics and hospital sitesin [place], [place], [place] and [place]. This disclosure is being madepursuant to the Care Everywhere program and may not contain all information available regarding this patient. Last updated 18.[facility] [employer] Allergies Active Allergy Reactions Criticality Noted Date [...] CDT 09/25/2016 Narrative Resulting Agency Comment [facility] [address] [id number] Martin Ngo MD LAB - SEROLOGY ORDER [facility] ACCOUNT BILL [address] [place] [address] from Last 3 Months or Most Recently Relevant to Health Maintenance Care Teams Bunch Breaker Machine Operator Relationship Specialty Start Date End Date Ellie Weber, PAMauriceC [address] [facility] [address] [place] [address] PCP - General Physician Passenger Conductor 02/07/22
--- OUTSIDE RECORDS SUMMARY | 2024-08-20 23:03 | XMS_ITS | Referral Summary ---
Author Organization [facility] Address [address] [facility] [place] [address] Care Team Providers Care Overedge Sewer Name Role Phone Ellie Weber PA-C Primary Care Provider +1 -[phone] Source Comments [facility],non-[facility] Affiliates and Associated Physician Practices is amultiple site organization consisting of ambulatory clinics and hospital sitesin [place], [place], [place] and [place]. This disclosure is being madepursuant to the Care Everywhere program and may not contain all information available regarding this patient. Last updated 18.[facility] [place] Allergies Active Allergy Reactions Criticality Noted Date [...] CDT 09/25/2016 Narrative Resulting Agency Comment [facility] [address] [facility] [phone] Martin Ngo MD LAB - SEROLOGY ORDER [facility] ACCOUNT BILL [address] [place] [address] from Last 3 Months or Most Recently Relevant to Health Maintenance Care Teams Overedge Sewer Relationship Specialty Start Date End Date Ellie Weber PA-C [address] [facility] [address] [place] [address] PCP - General Physician Equipment Technician 02/07/22
--- OUTSIDE RECORDS SUMMARY | 2024-08-20 23:03 | XMS_ITS | Referral Summary ---
Author Organization [facility] Address [address] [place] [id number] Care Team Providers Care Calender Roll Press Operator Name Role Phone Ellie Weber Primary Care Provider [phone]- [phone] Encounters Date Type Department Care Team Description 07/13/2024 Telephone [facility] Medicine [address] [place] [address] [address] [place] [address] Ellie Weber PA Medical Question/Miscellaneous 06/15/2024 Nurse Triage [facility] [address] [place] [address] [address] [place] [address] Ellie Weber PA from Last [...] (04/11/2024 12:36 PM CDT): Patient saw a genetic coordinator and told the rash was eczema. Has [...] PPI Assessment & Plan (09/10/2020 9:45 AM GLOBAL COMPENSATION MANAGER): Discussed GERD at length including anatomy, behavioral changes (raise HOB, meal timings), dietary changes and medication options. Reviewed risks, benefits alternatives, side effects and proper use. Followup if sxs worsen or has hematochezia or hematemeis. Vertigo 08/19/2020 Assessment & Plan (09/10/2020 9:45 AM GLOBAL COMPENSATION MANAGER): Improving with the vestibular therapy Assessment & Plan (08/19/2020 2:12 PM GLOBAL COMPENSATION MANAGER): Patient has sxs consistent with vertigo. [...] has a psychiatry appointment tomorrow in [facility]. He is frustrated because he feels like [...] hours because these visits are located in [facility] and [place], [place]. Advised he could increase the BuSpar [...] assistance. Provided name and contact information at [facility] further same-day behavioral/mental health clinic as this is always available for evaluation as a walk in. He was thankful for the information will contact if he needs more assistance Assessment & Plan (05/18/2023 1:28 PM GLOBAL COMPENSATION MANAGER): Patient has discontinued all his mental [...] tid Assessment & Plan (09/10/2020 9:45 AM GLOBAL COMPENSATION MANAGER): See anxiety Assessment & Plan (01/10/2019 [...] tid Assessment & Plan (09/10/2020 9:45 AM GLOBAL COMPENSATION MANAGER): Start buspar 7.5tid Reviewed risks, benefit, alternatives, side effects and proper use. Assessment & Plan (08/19/2020 2:10 PM GLOBAL COMPENSATION MANAGER): Discussed medication for anxiety. Declines at [...] 03/31/2024 Assessment & Plan (05/18/2023 1:28 PM GLOBAL COMPENSATION MANAGER): Neck pain seems to be continuing [...] 023 Assessment & Plan (09/18/2022 3:28 PM GLOBAL COMPENSATION MANAGER): Weight/BMI is in healthy range. Continue [...] 03/31/2024 Assessment & Plan (09/17/2020 7:34 PM GLOBAL COMPENSATION MANAGER): Already on Valtrex. Will try a little lotrisone to the area as may be a yeast component. If persists, will need an appointment for exam. May consider HSV antibodies. Denies STD/he is not high risk. Assessment & Plan (08/19/2020 2:09 PM GLOBAL COMPENSATION MANAGER): Check HSV IGg and IGM for TypeI and Type II. (HERPES SELECT) Continue valtrex. BMI 20.0-20.9, adult 10/21/2019 021 Assessment & Plan (09/10/2020 9:45 AM GLOBAL COMPENSATION MANAGER): Weight/BMI is in healthy range. Continue healthy lifestyle to maintain. Conjunctivitis 10/21/2019 03/31/2024 Assessment & Plan (10/21/2019 11:34 AM CDT): Conjunctivitis vs abrasion. Will treat with antibiotic drops. 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 Call if sxs worsen or don't resolve. 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 Assessment & Plan (10/15/2021 2:06 PM CDT): Continue Valtrex 500 mg 1 daily Has not had an outbreak in a long time Assessment & Plan (09/10/2020 9:45 AM GLOBAL COMPENSATION MANAGER): Increase to valtrex 1gm daily Possible [...] on file Legal Sex Male 12:13 PM GLOBAL COMPENSATION MANAGER Gender Identity Not on file Sexual [...] Final Result from Last 3 Months Insurance [employer] [place] [employer] [place] [facility] Care Teams Calender Roll Press Operator Relationship Specialty Start Date End Date Ellie Weber PA [address] [facility] [address] [place] [address] PCP - General Internal Medicine 12/11/18
--- OUTSIDE RECORDS SUMMARY | 2024-08-20 23:03 | XMS_ITS | Clinical Summary ---
Author Organization [facility] Address [address] [place] [address] Care Team Providers Care Community Service Director Name Role Phone Ellie Weber Primary Care Provider +1- [phone] Allergies Active Allergy Reactions Criticality Noted Date [...] (04/11/2024 12:36 PM CDT): Patient saw a pulverizer feeder and told the rash was eczema. Has [...] PPI Assessment & Plan (09/10/2020 9:45 AM CHEMICAL LIBRARIAN): Discussed GERD at length including anatomy, behavioral changes (raise HOB, meal timings), dietary changes and medication options. Reviewed risks, benefits alternatives, side effects and proper use. Followup if sxs worsen or has hematochezia or hematemeis. Vertigo 08/19/2020 Assessment & Plan (09/10/2020 9:45 AM CHEMICAL LIBRARIAN): Improving with the vestibular therapy Assessment & Plan (08/19/2020 2:12 PM CHEMICAL LIBRARIAN): Patient has sxs consistent with vertigo. Unable [...] He has a psychiatry appointment tomorrow in [facility]. He is frustrated because he feels [...] hours because these visits are located in [facility] and [place], [place]. Advised he could increase the BuSpar [...] assistance. Provided name and contact information at [facility] further same-day behavioral/mental health clinic as this is always available for evaluation as a walk in. He was thankful for the information will contact if he needs more assistance Assessment & Plan (05/18/2023 1:28 PM CHEMICAL LIBRARIAN): Patient has discontinued all his mental health [...] tid Assessment & Plan (09/10/2020 9:45 AM CHEMICAL LIBRARIAN): See anxiety Assessment & Plan (01/10/2019 10:54 [...] tid Assessment & Plan (09/10/2020 9:45 AM CHEMICAL LIBRARIAN): Start buspar 7.5tid Reviewed risks, benefit, alternatives, side effects and proper use. Assessment & Plan (08/19/2020 2:10 PM CHEMICAL LIBRARIAN): Discussed medication for anxiety. Declines at this [...] 03/31/2024 Assessment & Plan (05/18/2023 1:28 PM CHEMICAL LIBRARIAN): Neck pain seems to be continuing to [...] 023 Assessment & Plan (09/18/2022 3:28 PM CHEMICAL LIBRARIAN): Weight/BMI is in healthy range. Continue healthy [...] 03/31/2024 Assessment & Plan (09/17/2020 7:34 PM CHEMICAL LIBRARIAN): Already on Valtrex. Will try a little lotrisone to the area as may be a yeast component. If persists, will need an appointment for exam. May consider HSV antibodies. Denies STD/he is not high risk. Assessment & Plan (08/19/2020 2:09 PM CHEMICAL LIBRARIAN): Check HSV IGg and IGM for TypeI and Type II. (HERPES SELECT) Continue valtrex. BMI 20.0-20.9, adult 10/21/2019 021 Assessment & Plan (09/10/2020 9:45 AM CHEMICAL LIBRARIAN): Weight/BMI is in healthy range. Continue healthy lifestyle to maintain. Conjunctivitis 10/21/2019 03/31/2024 Assessment & Plan (10/21/2019 11:34 AM CDT): Conjunctivitis vs abrasion. Will treat with antibiotic drops. 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 Call if sxs worsen or don't resolve. 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 Assessment & Plan (10/15/2021 2:06 PM CDT): Continue Valtrex 500 mg 1 daily Has not had an outbreak in a long time Assessment & Plan (09/10/2020 9:45 AM CHEMICAL LIBRARIAN): Increase to valtrex 1gm daily Possible exposure to STD 01/30/2016 Dysuria 01/30/2016 04/11/2024 Chicken pox 02/06/2009 08/19/2020 Overview (06/01/2018): Overview: 1998 Chicken pox 02/06/2009 03/31/2024 Overview (06/03/2022): 1998 Encounters Date Type Department Care Team Description 07/13/2024 Telephone [facility] Medicine [address] [place] [address] [place] [address] Ellie Weber PA Medical Question/Miscellaneous 06/15/2024 Nurse Triage [address] [place] [address] Ellie Weber PA from Last [...] on file Legal Sex Male 12:13 PM CHEMICAL LIBRARIAN Gender Identity Not on file Sexual Orientation [...] Final Result from Last 3 Months Insurance [facility] [employer] [place] [employer] [place] Member Subscriber Plan / [facility] Name:Dora Hampton Relation to Subscriber:Self Name:Dora Hampton Payer ID:[id number] (NAIC) Type:BC OTHER Address: [address] [place] [address] Care Teams Community Service Director Relationship Specialty Start Date End Date Ellie Weber PA [address] [facility] [address] [place] [address] PCP - General Internal Medicine 12/11/18
--- OUTSIDE RECORDS SUMMARY | 2024-08-20 23:03 | XMS_ITS | Patient Health Summary ---
Author Organization [facility] Address [address] [place] [address] Care Team Providers Care Tangled Yarn Spool Straightener Name Role Phone Ellie Weber PA-C Primary Care Provider +1 -[phone] Note from [facility],non-owned Affiliates and Associated Physician Practices is amultiple site organization consisting of ambulatory clinics and hospital sitesin [place], [place], [place] and [place]. This disclosure is being madepursuant to the Care Everywhere program and may not contain all information available regarding this patient. Last updated 18.[facility] Allergies * Meloxicam(Headache) -Low Criticality Medications * [...] CDT) Anatomical Region Laterality Modality Spine Radiographic Payla ging 02/07/2022 1:13 PM CDT Narrative 02/07/2022 [...] resultswithin the time period is included. Pathologist [facility] HIV Screen 4th Generation w Reflex Non Reactive Non Reactive [facility] ACCOUNT BILL Blood BLOOD SPECIMEN / Unknown 09/25/2016 12:15 PM CDT 09/25/2016 Narrative Resulting Agency Comment [facility] [place] [address] [facility] [id number] Martin Ngo MD LAB - SEROLOGY ORDER JODY [facility] ACCOUNT BILL [address] [place] [address] * (ABNORMAL) HERPES SIMPLEX 1+2 AB IGG [...] CDT 09/25/2016 Narrative Resulting Agency Comment [facility] [place] [address] [facility] [id number] Martin Ngo MD LAB - SEROLOGY ORDER JODY [facility] ACCOUNT BILL [address] [place] [address] * RPR (09/25/2016 12:15 PM CDT) Only the most recent of2 resultswithin the time period is included. RPR Non Reactive Non Reactive [facility] ACCOUNT BILL Blood BLOOD SPECIMEN / Unknown 09/25/2016 12:15 PM CDT 09/25/2016 Narrative Resulting Agency Comment [facility] [place] [address] [address] [place] [id number] Martin Ngo MD LAB - CHEMISTRY ORDE RABLES [facility] ACCOUNT BILL [address] [place] [address] * (ABNORMAL) COMPREHENSIVE METABOLIC PANEL (09/25/2016 12:15 [...] PM CDT 09/25/2016 Narrative Resulting Agency Comment [address] Lorena CALDERON [id number] Martin Ngo MD LAB - CHEMISTRY PETRA NULL Performing Organization Address City/[facility]/ZIP Co de Phone Number [facility] ACCOUNT BILL [address] [place] [address] * CHLAMYDIA + GC + TRICH DNA [...] CDT 09/25/2016 Narrative Resulting Agency Comment [facility] [address] [id number] Martin Ngo MD LAB - MICROBIOLOGY O RENATA Performing Organization Address City/[facility]/ZIP Co de Phone Number [facility] ACCOUNT BILL [address] [place] [address] * CT RENAL STONE PROTOCOL (03/13/2016 3:53 [...] pH units Blood UA neg Negtive Specific [place] UA POCT 1.025 1.002 - 1.030 Ketone UA neg Negative Bilirubin UA POCT neg Negative Glucose UA neg Negative Urine specimen (specimen) URINE / Unknown 01/30/2016 Martin Ngo MD LAB - POINT OF CARE ORDERABLES Care Teams Tangled Yarn Spool Straightener Relationship Specialty Start Date End Date Ellie Weber PA-C [address] [place] [address] PCP - General Physician [employer] 02/07/22
--- OUTSIDE RECORDS SUMMARY | 2024-08-20 23:03 | XMS_ITS | Encounter Summary ---
Author Organization [facility] Healthcare Address [address] [place] [address] Care Team Providers Care Program Director/Air Personality Name Role Phone Ellie Weber Primary Care Provider +1- [phone] Encounter Details Date Type Department Care Team (Late st Contact Info) Description 11/24/[address] 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
[2024-08-20 23:17] LABS: Add Urine Microscopic? NO; Appearance Urine Clear (Clear); Bilirubin Urine Negative (Negative); Blood Urine Negative (Negative); Color Urine Yellow (Yellow); Glucose Urine UA Negative (Negative); Ketones Urine Trace mg/dL (Negative); Leukocyte Esterase Ur Negative LEU/UL (Negative); Nitrate Urine Negative (Negative); Protein Urine Negative (Negative); Specific Grav Ur 1.016 (1.001-1.035); Urobilinogen Urine 0.2 mg/dL (<2.0); pH Urine 5.5 (5.0-9.0)
[2024-08-21 00:21] LABS: Trichomonas Vag PCR NOT DETECTED (NOT DETECTE)
[2024-08-21 00:47] LABS: Chlamydia trachomatis NOT DETECTED (NOT DETECTE); Neisseria gonorrhoeae PCR NOT DETECTED (NOT DETECTE)
[2024-08-21] MEDS: ACETAMINOPHEN 500 MG TABLET 1000 MG PO (00:50)
[2024-08-21] MEDS: KETOROLAC 30 MG/ML VIAL (*BKC) IM (00:53)
[2024-08-21 01:01] VITALS: BP 115/66; PULSE 72; RESP 17; O2SAT 100
[2024-08-21] MEDS: levoFLOXacin 500 MG TABLET PO (01:19)
[2024-08-21 01:23] VITALS: BP 115/66; PULSE 72; RESP 17; O2SAT 100
== END 2024-08-21 01:26 | disposition home or self-care (01) ==
PROVIDERS: Physician Assistant; Emergency Provider Emergency Medicine; PCP Physician Assistant
DX: N45.1 Epididymitis (principal)
CPT/HCPCS: 36415; 76870; 80048; 81003; 85025; 87491; 87591; 87661; 93976; 96372; 96374; 99284; A9270; J1885

== ENCOUNTER 2024-10-16 12:06 | Emergency (ER) | payer BC, SELFPAY ==
--- NOTE | ~2024-10-16 | XR_ITS ---
EXAMINATION: XR hand RT min 3V DATE: 10/16/2024 13:10 INDICATION: Right hand injury with pain and swelling TECHNIQUE: Posteroanterior, oblique and lateral views of the right hand were obtained. COMPARISON: None. FINDINGS: Alignment is normal. No fracture. Joint spaces are normal. Soft tissues are unremarkable. IMPRESSION: 1. Normal right hand radiographs. Reviewed, dictated and finalized at location A.
[2024-10-16 12:08] VITALS: BP 114/66; PULSE 63; RESP 14; TEMP 36.4; O2SAT 100
--- OUTSIDE RECORDS SUMMARY | 2024-10-16 12:08 | XMS_ITS | Clinical Summary ---
Author Organization [facility] Address [address] [place] [address] Care Team Providers Care Process Improvement Engineer Name Role Phone Ellie Weber PA-C Primary Care Provider +1 -[phone] Source Comments [facility],non-[facility] Affiliates and Associated Physician Practices is amultiple site organization consisting of ambulatory clinics and hospital sitesin [place], [place], [place] and [place]. This disclosure is being madepursuant to the Care Everywhere program and may not contain all information available regarding this patient. Last updated 18.[facility] [employer] Allergies Active Allergy Reactions Criticality Noted Date [...] history exists COVID-19 VACCINE ( season) 2024 DEPRESSION SCREENING 07/14/2024 01/31/2024 INFLUENZA VACCINE (Season Ended) 2025 ZOSTER VACCINE (1 of 2) 10/25/2043 HEPATITIS B VACCINE Completed 07/13/1996, 1993, 1993 HIB VACCINE Completed 07/13/1996, 10/12, 03/08/1994 MENINGOCOCCAL GROUPS A/C/Y/W VACCINE Aged Out 02/09/2007 No longer eligible based on patient's age to complete this topic HIV SCREENING Completed 09/25/2016, 01/30/2016 HPV VACCINE Aged Out No longer eligi ble based on patient's age to complete this topic MENINGOCOCCAL (Group B) VACCINE SHARED DECISION-MAKING Aged Out No longer eligible based on [...] CDT 09/25/2016 Narrative Resulting Agency Comment [facility] [place] [address] [facility] [id number] Martin Ngo MD LAB - SEROLOGY ORDER JODY [facility] ACCOUNT BILL [address] [place] [address] from Last 3 Months or Most Recently Relevant to Health Maintenance Care Teams Process Improvement Engineer Relationship Specialty Start Date End Date Ellie Weber, PAMauriceC [address] [facility] [address] [place] [address] PCP - General Physician Polysilicon Preparation Worker 02/07/22
--- OUTSIDE RECORDS SUMMARY | 2024-10-16 12:08 | XMS_ITS | Encounter Summary ---
Author Organization [facility] Healthcare Address [address] [place] [address] Care Team Providers Care Iron Guardrail Installer Name Role Phone Ellie Weber Primary Care Provider +1- [phone] Encounter Details Date Type Department Care Team (Late st Contact Info) Description 10/15/2024 Telephone [facility] Medical Group Family Medicine [address] [place] [address] Ellie Weber PA [address] [place] [address] Social History Tobacco Use Types [...] staff should administer the PHQ-9) 4 03/31/2024 PHQ-9 Answer Date Recorded PHQ-9 Total Score 24 10/23/2023 Sex and Gender Information Value Date Recorded Sex Assigned at Not on file 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 She stated that he gave her permission to call his PCP. She reports that she saw patient twice this week, Friday and Friday, and he was having a hard time coping with this job, being a single father etc. She recommended patient be given medicine to help him deal with these issues and the panic attack. I then called the patient to check on him to make sure he was safe to be driving and suggest he go to the ER for help. He was very agitated but able to carry on a conversation. During this conversation he said he was having a hard time breathing. I did some breathing exercises with him on the phone. He did calm down a little and said he was able to catch his breath. [place] . If felt that at this time it would be safe to end the call and call the provider. His PCP was not in the office so I placed a call to her cell. She instructed me to encourage the patient to go to the walk in clinic at [facility] to see a environmental lawyer so they couldevaluate him and possibly prescribe medication if needed. If he was suicidal I was instruct him to go the ER immediately. Called patient back and he was just getting home. He refused to visit the walk in clinic because hesaid the last time he was on medication it made him have nightmares. He got to where he could not tell the difference between reality and the dreams. I encouraged him to go talk to them and explain what happened with his last medication, that there can be a trail and error period before the right medicine is found. He still refused to go. At this point in our conversation he was calmer and sounded tired. He said he just wanted to be home alone to deal with everything. I asked if he had anyone in his life to talk to/ support him when he started feeling like he did today. He said just his mother and sister and they know about the problems he has at work but he doesn't talk about the rest of what is bothering him with them. He doesn't want to stress them out. I stressed the importance of having a support system and being honest with them about the panic attacks. After speaking to patient I contacted the provider again to relay my conversation with the patient.She said if he wanted she could send out Buspar 10 mg to be taken as needed for anxiety. Patient declined the medication and again said he was not suicidal. He was offered an appointment on Friday, October 19 instead of the one he already has on October 21 but declined because he had already scheduled off for his original appointment. He was much calmer and sounded very tired during this call. documented in this encounter Plan of Treatment Not on file documented as of this encounter Visit Diagnoses Not on filedocumented in this encounter Care Teams Iron Guardrail Installer Relationship Specialty Start Date End Date Ellie Weber PA [address] [facility] [address] [place] [address] PCP - General Internal Medicine 12/11/18 documented as of this encounter
--- OUTSIDE RECORDS SUMMARY | 2024-10-16 12:08 | XMS_ITS | Referral Summary ---
Author Organization [facility] Address [address] [place] [address] Care Team Providers Care Plate Corrector Name Role Phone Ellie Weber Primary Care Provider +1- [phone] Encounters Date Type Department Care Team Description 10/15/2024 Telephone [facility] Medicine [address] [place] [address] Road [address] [place] [address] Ellie Weber PA 10/12/2024 8:00 AM CDT Office Visit [facility] at [address] [address] Yadira Be, SUNNY Acute midline low back pain without sciatica (Primary Dx) 10/11/2024 Nurse Triage [facility] Medicine [address] [place] [address] Road [address] [place] [address] Ellie Weber PA 09/28/2024 Telephone [facility] Medicine [address] [place] [address] [address] [place] [address] Ellie Weber PA Medical Question/Miscellaneo us 08/25/2024 Telephone [facility] Medicine [address] [place] [address] [address] [place] [address] Ellie Weber PA 08/24/2024 Telephone [facility] Medicine [address] [place] [address] Road [address] [place] [address] Ellie Weber PA 08/24/2024 Nurse Triage [facility] Medical Group Family Medicine [address] [facility] [address] [place] [phone] Ellie Weber PA from Last 3 Months [...] mouth daily 90 tablet 1 4 Active methylPREDNISol one (MEDROL DOSEPACK) 4 mg DosepackIndicat ions:Acute midline low back pain without sciatica Take as directed on package. 21 tablet 5 10/19/19 25 Active cyclobenzaprine (FLEXERIL) 10 mg tabletIndicatio ns:Acute midline low back pain without sciatica Take 1 tablet (10 mg total) by mouth 3 (three) times a day as needed for muscle spasms 20 tablet 5 12/12/19 25 Active Active Problems Problem Noted Date Diagnosed Date BMI 22.0-22.9, adult 03/31/2024 Assessment & Plan (03/31/2024 10:46 AM CDT): Weight/BMI is in healthy range. Continue healthy lifestyle to maintain. Flexural eczema 03/31/2024 Assessment & Plan (04/11/2024 12:36 PM CDT): Patient saw a towel distributor and told the rash was eczema. Has [...] PPI Assessment & Plan (09/10/2020 9:45 AM CNC APPLICATIONS ENGINEER): Discussed GERD at length including anatomy, behavioral changes (raise HOB, meal timings), dietary changes and medication options. Reviewed risks, benefits alternatives, side effects and proper use. Followup if sxs worsen or has hematochezia or hematemeis. Vertigo 08/19/2020 Assessment & Plan (09/10/2020 9:45 AM CNC APPLICATIONS ENGINEER): Improving with the vestibular therapy Assessment & Plan (08/19/2020 2:12 PM CNC APPLICATIONS ENGINEER): Patient has sxs consistent with vertigo. Unable [...] He has a psychiatry appointment tomorrow in [facility]. He is frustrated because he feels like [...] hours because these visits are located in [facility] and [place], [place]. Advised he could increase the BuSpar [...] assistance. Provided name and contact information at [facility] further same-day behavioral/mental health clinic as this is always available for evaluation as a walk in. He was thankful for the information will contact if he needs more assistance Assessment & Plan (05/18/2023 1:28 PM CNC APPLICATIONS ENGINEER): Patient has discontinued all his mental health [...] tid Assessment & Plan (09/10/2020 9:45 AM CNC APPLICATIONS ENGINEER): See anxiety Assessment & Plan (01/10/2019 10:54 [...] tid Assessment & Plan (09/10/2020 9:45 AM CNC APPLICATIONS ENGINEER): Start buspar 7.5tid Reviewed risks, benefit, alternatives, side effects and proper use. Assessment & Plan (08/19/2020 2:10 PM CNC APPLICATIONS ENGINEER): Discussed medication for anxiety. Declines at this [...] 03/31/2024 Assessment & Plan (05/18/2023 1:28 PM CNC APPLICATIONS ENGINEER): Neck pain seems to be continuing to [...] 023 Assessment & Plan (09/18/2022 3:28 PM CNC APPLICATIONS ENGINEER): Weight/BMI is in healthy range. Continue healthy [...] 03/31/2024 Assessment & Plan (09/17/2020 7:34 PM CNC APPLICATIONS ENGINEER): Already on Valtrex. Will try a little lotrisone to the area as may be a yeast component. If persists, will need an appointment for exam. May consider HSV antibodies. Denies STD/he is not high risk. Assessment & Plan (08/19/2020 2:09 PM CNC APPLICATIONS ENGINEER): Check HSV IGg and IGM for TypeI and Type II. (HERPES SELECT) Continue valtrex. BMI 20.0-20.9, adult 10/21/2019 021 Assessment & Plan (09/10/2020 9:45 AM CNC APPLICATIONS ENGINEER): Weight/BMI is in healthy range. Continue healthy lifestyle to maintain. Conjunctivitis 10/21/2019 03/31/2024 Assessment & Plan (10/21/2019 11:34 AM CDT): Conjunctivitis vs abrasion. Will treat with antibiotic drops. 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 Call if sxs worsen or don't resolve. 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 Assessment & Plan (10/15/2021 2:06 PM CDT): Continue Valtrex 500 mg 1 daily Has not had an outbreak in a long time Assessment & Plan (09/10/2020 9:45 AM CNC APPLICATIONS ENGINEER): Increase to valtrex 1gm daily Possible exposure to STD 01/30/2016 Dysuria 01/30/2016 04/11/2024 Chicken pox 02/06/2009 08/19/2020 Overview (06/01/2018): Overview: 1998 Chicken pox 02/06/2009 03/31/2024 Overview (06/03/2022): 1998 Immunizations Immunization Administration Dates Next Due DTP / HiB [...] on file Legal Sex Male 12:13 PM CNC APPLICATIONS ENGINEER Gender Identity Not on file Sexual Orientation Not on file Last Filed Vital Signs Vital Sign Reading Time Taken Comments Blood Pressure 110/68 10/12/2024 8:06 AM CDT Pulse 68 10/12/2024 8:06 AM CDT Temperature 36.7 C (98 F) 10/12/2024 8:06 AM CDT Respiratory Rate 16 10/12/2024 8:06 AM CDT Oxygen Saturation 99% 10/12/2024 8:06 AM CDT Inhaled Oxygen Concentration - - Weight 68 kg (150 lb) 10/12/2024 8:06 AM CDT Height 177.8 cm (5' 10 ) 03/31/2024 10:42 AM CDT Body Mass Index 21.52 03/31/2024 10:42 AM CDT Plan of Treatment Not on file Insurance [place] [employer] [place] Care Teams Plate Corrector Relationship Specialty Start Date End Date Ellie Weber PA [address] [facility] [address] [place] [address] PCP - General Internal Medicine 12/11/18
--- OUTSIDE RECORDS SUMMARY | 2024-10-16 12:08 | XMS_ITS | Encounter Summary ---
Author Organization [facility] Healthcare Address [address] [place] [address] Care Team Providers Care Die Cleaner Name Role Phone Ellie Weber Primary Care Provider +1- [phone] Encounter Details Date Type Department Care Team (Late st Contact Info) Description 11/24/2023 Telephone [facility] Medical Group Family Medicine [address] [place] [address] Ellie Weber PA [address] [place] [address] Social History Tobacco Use Types [...] Date Recorded PHQ-2 Total Score 24 10/23/2023 PHQ-9 Answer Date Recorded PHQ-9 Total Score 24 10/23/2023 Sex and Gender Information Value Date Recorded Sex Assigned at Not on file 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 [address] [place] [address] PCP - General Internal Medicine 12/11/18 documented as of this encounter
--- OUTSIDE RECORDS SUMMARY | 2024-10-16 12:08 | XMS_ITS | Clinical Summary ---
Author Organization [facility] Address [address] [place] [address] Care Team Providers Care Pathology Laboratory Director Name Role Phone Ellie Weber Primary Care Provider [phone]- [phone] Allergies Active Allergy Reactions Criticality Noted Date [...] (04/11/2024 12:36 PM CDT): Patient saw a training program manager and told the rash was eczema. 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 Reviewed risks, benefits alternatives, side effects and proper use. Followup if sxs worsen or has hematochezia or hematemeis. 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 Unable [...] He has a psychiatry appointment tomorrow in [facility]. He is frustrated because he [...] because these visits are located in [facility] and [place], [place]. Advised he could increase the BuSpar [...] assistance. Provided name and contact information at [facility] further same-day behavioral/mental health clinic as this is always available for evaluation as a walk in. 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 Assessment & Plan (08/19/2020 2:10 PM REGIONAL DEDICATED TRUCK DRIVER): Discussed medication for anxiety. Declines at this [...] 03/31/2024 Assessment & Plan (05/18/2023 1:28 PM REGIONAL DEDICATED TRUCK DRIVER): Neck pain seems to be continuing to [...] 023 Assessment & Plan (09/18/2022 3:28 PM [employer]IONAL DEDICATED TRUCK DRIVER): Weight/BMI is in healthy range. Continue healthy [...] 03/31/2024 Assessment & Plan (09/17/2020 7:34 PM REGIONAL DEDICATED TRUCK DRIVER): Already on Valtrex. Will try a little lotrisone to the area as may be a yeast component. If persists, will need an appointment for exam. May consider HSV antibodies. Denies STD/he is not high risk. Assessment & Plan (08/19/2020 2:09 PM REGIONAL DEDICATED TRUCK DRIVER): Check HSV IGg and IGM for TypeI and Type II. (HERPES SELECT) Continue valtrex. 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 Continue healthy lifestyle to maintain. Conjunctivitis 10/21/2019 03/31/2024 Assessment & Plan (10/21/2019 11:34 AM CDT): Conjunctivitis vs abrasion. Will treat with antibiotic drops. 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 Call if sxs worsen or don't resolve. 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 TRUCK DRIVER): Increase to valtrex 1gm daily Possible exposure to STD 01/30/2016 Dysuria 01/30/2016 04/11/2024 Chicken pox 02/06/2009 08/19/2020 Overview (06/01/2018): Overview: 1998 Chicken pox 02/06/2009 03/31/2024 Overview (06/03/2022): 1998 Encounters Date Type Department Care Team Description 10/15/2024 Telephone [facility] Family Medicine [address] [phone] Ellie Weber PA 10/12/2024 8:00 AM CDT Office Visit [facility] Care at [address] [phone] Yadira Be NP Acute midline low back pain without sciatica (Primary Dx) 10/11/2024 Nurse Triage [address] [place] [phone] Ellie Weber PA 09/28/[address] [place] [phone] Ellie Weber PA Medical Question/Miscellaneo us 08/25/[address] [place] [phone] Ellie Weber PA 08/24/[address] [place] [phone] Ellie Weber PA 08/24/2024 Nurse Triage [address] [place] [phone] Ellie Weber PA from Last 3 Months Immunizations Immunization Administration Dates Next Due DTP [...] on file Legal Sex Male 12:13 PM REGIONAL D[employer]ICATED TRUCK DRIVER Gender Identity Not on file Sexual Orientation [...] Comments Hepatitis C Screening 1993 Influenza Vaccine (Season Ended) 2025 Depression Screening 03/31/2025 03/31/2024, 10/23/2023, 10/23/2023, Additional history exists Regular Well Visit/Exam 18-64 03/31/2025 03/31/2024, 10/31/2022, 10/15/2021 DTaP/Tdap/Td Vaccine (8 - Td or Tdap) 02/20/2031 02/20/2021, 02/09/2007, 04/11/1998, Additional history exists Hepatitis B Screening Completed 07/13/1996 , 1993, 1993 HPV Vaccines Aged Out No longer eligi ble based on patient's age to complete this topic Pneumococcal vaccine <65 Aged Out No longer eligible based on patient's age to complete this topic Insurance [employer] [facility] Care Teams Pathology Laboratory Director Relationship Specialty Start Date End Date Ellie Weber PA [facility] [address] [place] [address] PCP - General Internal Medicine 12/11/18
--- OUTSIDE RECORDS SUMMARY | 2024-10-16 12:08 | XMS_ITS | Encounter Summary ---
Author Organization [facility] Address [address] [place] [address] Care Team Providers Care Senior Adults Director Name Role Phone Ellie Weber Primary Care Provider [phone]- [phone] Reason for Visit * Reason Onset Date Comments Groin Pain 08/17/2024 Encounter Details Date Type Department Care Team (Late st Contact Info) Description 08/24/2024 Nurse Triage [facility] Family Medicine [address] [place] [phone] Ellie Weber PA [address] [place] [address] Social History Tobacco Use Types [...] on file Legal 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 Celestine Blake with [facility] at their [place] office. Patient informed of appointment and that his office will be sending information/ new patient paperwork today. OCOPYING EQUIPMENT REPAIRER * Telephone Encounter - Zita Ojeda MA - 08/24/2024 3:34 PM CST Called patient per provider and explained that the next step would be getting him into urology. [place] Patient will be advised when referral is complete. OCOPYING EQUIPMENT REPAIRER * Telephone Encounter - Lexi Choi RN - 08/24/2024 9:03 AM CST Reason for Disposition Patient wants to be seen Protocols used: Scrotum Ctyv-Sfluz-IH Pt is a 28 y/o male calling with groin pain x 1 week that is worsening. Pt was seen in the ED on 08-20-2024 and had a negative US. Pt has slight swelling to R testicle and states pain is starting to radiate down the back of his R leg. Pt rates pain 5/10 when he is at rest. Pain worsens when he is moving. Pt denies any problems with urination but states he feels pressure in groin area when he urinates. Pt states the ED suggested he f/up with a urologist but he was not given a referral. Pt is requesting to be seen. No availability. Please contact pt at [phone]. Care advice given including Tylenol/Ibuprofen as directed and ice/heat as directed. Pt verbalized understanding and will call with worsening sx's. OCOPYING EQUIPMENT REPAIRER * Telephone Encounter - Lexi Choi RN - 08/24/2024 8:57 AM CST Regarding: Severe groin pain & in the back of the right leg & going down the leg ----- Message from Marii Becker sent at 08/24/2024 8:47 AM PHOTOCOPYING EQUIPMENT REPAIRER ----- Symptom Based Call Chief Complaint(s): Severe groin pain & in the back of the right leg & going down the leg Duration: Groin pain started Friday, leg pain pain the next day What type of symptom(s) is the patient experiencing? Red Flag. Is the patient concerned they are experiencing a medical emergency requiring an ambulance? No Additional Comments: Did go to the ED at [facility] on 08/20/24 but did not really determineanything and now the leg pain in severe and the groin pain is still present. Does message need to be routed? Yes-Action Needed OCOPYING EQUIPMENT REPAIRER documented in this encounter Plan of Treatment Not on file documented as of this encounter Visit Diagnoses Not on filedocumented in this encounter Care Teams Senior Adults Director Relationship Specialty Start Date End Date Ellie Weber PA [address] [place] [address] PCP - General Internal Medicine 12/11/18 documented as of this encounter
--- OUTSIDE RECORDS SUMMARY | 2024-10-16 12:08 | XMS_ITS | Continuity of Care Document ---
Author Organization [facility] [place] Address [address] [place] [address] Phone Care Team Providers Care Bread Panner Name Role Phone Jimi Us PT Unavailable [...] Therapy Hot or Cold Pack Therapeutic Activities Therapeutic Exercise Neuromuscular Re-Ed Manual Therapy Hot or Cold Pack Therapeutic [...] Exercise Manual Therapy Hot or Cold Pack SUPERVISOR FUSING ROOM Acute Work Conditioning Initial 2 hrs 023 Work Conditioning Initial 2 hrs 023 Work Conditioning Initial 2 hrs 023 Work Conditioning Initial 2 hrs 023 Work Conditioning Initial 2 hrs 023 Work Conditioning Initial 2 hrs 023 Work Conditioning Initial 2 hrs 023 SUPERVISOR FUSING ROOM Acute Work Conditioning Initial 2 hrs 023 [...] Diagnoses Date Provider Providers Copied on Encounter [facility] [place] [address], [place], [place], [address], [place] tel:[phone] [place] No Information Abeba Krause. . Referring Provider: Ellie Weber, [address] [facility] [address] [facility], [place], [address]. tel:[phone] [facility] [facility] [address], [place], [place], [address], [place] tel:[phone] [place] No Information Garo Moran. [address] [facility], [address], [place], [address], [place]. tel:[phone] Referring Provider: Ellie Weber, [address] [place] [address] Road [address], [place], [address]. tel:[phone] [place] [address] [facility], [place], [place], [address], [place] tel:[phone] [place] No Information Garo Moran. [address] [facility], [address], [place], [address], [place]. tel:[phone] Referring Provider: Ellie Weber, [address] [place] [address] Road [address], [place], [address]. tel:[phone] [place] [address] [facility], [place], [place], [address], [place] tel:[phone] [place] No Information Modglin Jimi. . Referring Provider: Ellie Weber, [address] [place] [address] Road [address], [place], [address]. tel:[phone] [facility] [address] [facility] [address], [place], [place], [address], [place] tel:[phone] [place] No Information Modglin Jimi. . Referring Provider: Ellie Weber, [address] [place] [address] Road [address], [place], [address]. tel:[phone] [place] [address], [place], [place], [address], [place] tel:[phone] [place] No Information Modglin Jimi. . Referring Provider: Ellie Weber, [address] [place] [address] Road [address], [place], [address]. tel:[phone] [facility], [place], [place], [address], [place] tel:[phone] [place] No Information Garo Moran. [address] [facility], [address], [place], [place], [facility][note 3], [place]. tel:[phone] Referring Provider: Ellie Weber, [facility] [address], [place], [address]. tel:[phone] [facility], [place], [place], [address], [place] tel:[phone] [place] No Information Roman Weber. . Referring Provider: Ellie Weber, [address] [place] [address] Road [address], [place], [address]. tel:[phone] [facility], [place], [place], [address], [place] tel:[phone] [place] No Information Roman Weber. . Referring Provider: Ellie Weber, [address] [place] [address] Road [address], [place], [address]. tel:[phone] [facility], [place], [place], [address], [place] tel:[phone] [place] No Information Wagner Mitchell. . Referring Provider: Ellie Weber, [address] [place] [address] Road [address], [place], [address]. tel:[phone] [facility], [place], [place], [address], [place] tel:[phone] [place] No Information Roman Weber. . Referring Provider: Ellie Weber, [address] [facility] [address], [place], [address]. tel:[phone] [facility], [place], [place], [address], [place] tel:[phone] [place] No Information Roman Weber. . Referring Provider: Ellie Weber, [facility] [address], [place], [address]. tel:[phone] [facility], [place], [place], [address], [place] tel:[phone] [place] No Information Wagner Mitchell. . Referring Provider: Ellie Weber, [address] [place] [address] Road [address], [place], [address]. tel:[phone] [facility] [address], [place], [place], [address], tel:[phone] [place] No Information Wagner Mitchell. . Referring Provider: Ellie Weber [address] [place] [address] [address], [place], [address]. tel:[phone] [facility] [address] [facility] [address], [place], [place], [address], [place] tel:[phone] [place] No Information Garo Moran. [address] [facility], [address], [place], [facility][note 3], . tel:[phone] Referring Provider: Ellie Weber, [address] [place] [address] [address], [place], [address]. tel:[phone] [facility], [place], [place], [address], [place] tel:[phone] [place] No Information Roman Weber. . Referring Provider: Ellie Weber, [facility] [address], [place], [address]. tel:[phone] [facility], [place], [place], [address], [place] tel:[phone] [place] No Information Roman Weber. . Referring Provider: Ellie Hollanddulce maria, [address] [facility] [address], [place], [address]. tel:[phone] [address], [place], [place], [address], tel:[phone] [place] No Information Garo Moran. [address] [facility], [address], [place], [place], [facility][note 3], [place]. tel:[phone] Referring Provider: Ellie Carteraminah, [address] [facility] [address], [place], [address]. tel:[phone] [address], [place], [place], [address], [place] tel:[phone] [place] No Information Garo Moran. [address] [facility], [address], [place], [place], [facility][note 3], [place]. tel:[phone] Referring Provider: Ellie Carteraminah, [address] [facility] [address], [place], [address]. tel:[phone] [address], [place], [place], [address], [place] tel:[phone] [place] No Information Garo Moran. [address] [facility], [address], [place], [facility][note 3], [place]. tel:[phone] Referring Provider: Ellie Carteraminah, [address], [place], [address]. tel:[phone] [address], [place], [place], [address], [place] tel:[phone] [place] No Information Wagner Mitchell. . Referring Provider: Ellie Weber, [address] [facility] [address], [place], [address]. tel:[phone] [facility], [address], [place], [place], [address], [place] tel:[phone] [place] No Information Roman Weber. . Referring Provider: Ellie Weber, [address] [facility] [address], [place], [address]. tel:[phone] [facility] [address], [place], [place], [address], tel:[phone] [place] No Information Wagner Mitchell. . Referring Provider: Ellie Weber, [address] [place] [address] Road [address], [place], [address]. tel:[phone] [facility] [address] [facility] [address], [place], [place], [address], tel:[phone] [place] No Information Garo Moran. [address] [place] [address], [address], [place], [facility][note 3], . tel:[phone] Referring Provider: Ellie Weber, [facility] [address], [place], [address]. tel:[phone] [facility] [address] [facility] [address], [place], [place], [address], tel:[phone] [place] No Information Garo Moran. [address] [facility], [address], [place], [facility][note 3], [place]. tel:[phone] Referring Provider: Ellie Weber, [address] [facility] [address], [place], [address]. tel:[phone] [facility] [address], [place], [place], [address], tel:[phone] [place] No Information Garo Moran. [address] [facility], [address], [place], [facility][note 3], [place]. tel:[phone] Referring Provider: Ellie Weber, [address] [facility] [address], [place], [address]. tel:[phone] [place], [place] [address], [place], [place], [address], tel:[phone] [place] No Information Hisky Gus. . Referring Provider: Ellie Weber, [address] [facility] [address], [place], [address]. tel:[phone] [address], [place], [place], [address], [place] tel:[phone] [place] No Information Short Pat. . Referring Provider: Ellie Weber, [address] [facility] [address], [place], [address]. tel:[phone] [place] [address] [address], [place], [place], [address], tel:[phone] [place] No Information Short Pat. . Referring Provider: Ellie Weber, [address] [facility] [address], [place], [address]. tel:[phone] [address], [place], [place], [address], tel:[phone] [place] No Information Garo Moran. [address] [place] [address], [address], [place], [facility][note 3], . tel:[phone] Referring Provider: Ellie Weber, [address] [facility] [address], [place], [address]. tel:[phone] [address], [place], [place], [address], tel:[phone] [place] No Information Garo Moran. [address] [place] [address], [address], [place], [place], [facility][note 3], [place]. tel:[phone] Referring Provider: Ellie Weber, [address] [facility] [address], [place], [address]. tel:[phone] [facility], [address], [place], [place], [address], [place] tel:[phone] [place] No Information Short Pat. . Referring Provider: Ellie Weber, [address] [facility] [address], [place], [address]. tel:[phone] [facility] [address], [place], [place], [address], [place] tel:[phone] [place] No Information Garo Moran. [address] [facility], [address], [place], [facility][note 3], . tel:[phone] Referring Provider: Ellie Weber, [facility] [address], [place], [address]. tel:[phone] [facility] [address], [place], [place], [address], [place] tel:[phone] [place] No Information Hisgareth Weber. . Referring Provider: Elliemoraima Weber, [address] [facility] [address], [place], [address]. tel:[phone] [facility] [address], [place], [place], [address], [place] tel:[phone] [place] No Information Garo Moran. [address] [facility], [address], [place], [facility][note 3], . tel:[phone] Referring Provider: Ellie Weber, [address] [facility] [address], [place], [address]. tel:[phone] [facility], [place], [place], [address], [place] tel:[phone] [place] No Information Garo Moran. [address] [facility], [address], [place], [address], [place]. tel:[phone] Referring Provider: Ellie Weber, [address] [facility] [address], [place], [address]. tel:[phone] [facility], [address], [place], [place], [address], [place] tel:[phone] [place] No Information Garo Moran. [address] [facility], [address], [place], [address], [place]. tel:[phone] Referring Provider: Ellie Weber, [address] [place] [address] Road [address], [place], [address]. tel:[phone] [facility] [address], [place], [place], [address], [place] tel:[phone] [place] No Information Roman Weber. . Referring Provider: Ellie Weber, [facility] [address], [place], [address]. tel:[phone] [facility] [address], [place], [place], [address], [place] tel:[phone] [place] No Information Roman Weber. . Referring Provider: Ellie Weber, [address] [facility] [address], [place], [address]. tel:[phone] [facility], [address], [place], [place], [address], [place] tel:[phone] [place] No Information Roge De La Cruz. . Referring Provider: Ellie Weber, [address] [facility] [address], [place], [address]. tel:[phone] [facility], [place], [place], [address], [place] tel:[phone] [place] No Information Garo Moran. [address] [facility], [address], [place], [facility][note 3], [place]. tel:[phone] Referring Provider: Ellie Weber, [address] [place] [address] Road [address], [place], [address]. tel:[phone], [place], [place], [address], tel:[phone] [place] No Information Garo Moran. [address] [facility], [address], [place], [facility][note 3], [place]. tel:[phone] Referring Provider: Ellie Weber, [address] [place] [address] [address], [place], [address]. tel:[phone], [place], [place], [address], tel:[phone] [place] No Information Garo Moran. [address] [facility], [address], [place], [facility][note 3], [place]. tel:[phone] Referring Provider: Ellie Weber, [address] [place] [address] [address], [place], [address]. tel:[phone] [address], [place], [place], [address], tel:[phone] [place] No Information Roman Rodas . Referring Provider: Ellie Weber, [address] [place] [address] Road [address], [place], [address]. tel:[phone] [address], [place], [place], [address], tel:[phone] [place] No Information Garo Moran. [address] [facility], [address], [place], [facility][note 3], [place]. tel:[phone] Referring Provider: Ellie Weber, [address] [facility] [address], [place], [address]. tel:[phone] [facility], [facility] [address], [place], [place], [address], tel:[phone] [place] No Information Garo Moran. [address] [facility], [address], [place], [facility][note 3], [place]. tel:[phone] Referring Provider: Ellie Weber, [address] [facility] [address], [place], [address]. tel:[phone] [facility] [address] [place], [place] [address], [place], [place], [address], [place] tel:[phone] [place] No Information Garo Moran. [address] [facility], [address], [place], [facility][note 3], [place]. tel:[phone] Referring Provider: Ellie Weber, [facility] [address], [place], [address]. tel:[phone] [facility] [address] [facility] [address], [place], [place], [address], [place] tel:[phone] [place] No Information Saad Moran. . Referring Provider: Ellie Weber, [facility] [address], [place], [address]. tel:[phone] [facility], [address], [place], [place], [address], [place] tel:[phone] [place] No Information Short Pat. . Referring Provider: Ellie Weber, [address] [facility] [address], [place], [address]. tel:[phone] [facility], [address], [place], [place], [address], tel:[phone] [place] No Information Short Pat. . Referring Provider: Ellie Weber, [address] [facility] [address], [place], [address]. tel:[phone] [facility] [address] [facility] [address], [place], [place], [address], [place] tel:[phone] [place] No Information Garo Moran. [address] [facility], [address], [place], [place], [facility][note 3], [place]. tel:[phone] Referring Provider: Ellie Weber, [address] [facility] [address], [place], [address]. tel:[phone] [facility] [address], [place], [place], [address], [place] tel:[phone] [place] No Information Garo Moran. [address] [place] [address], [address], [place], [facility][note 3], [place]. tel:[phone] Referring Provider: Ellie Weber, [address] [facility] [address], [place], [address]. tel:[phone] [facility] [address], [place], [place], [address], [place] tel:[phone] [place] No Information Short Pat. . Referring Provider: Ellie Weber, [facility] [address], [place], [address]. tel:[phone] [facility] [address] [facility] [address], [place], [place], [address], [place] tel:[phone] [place] No Information Garo Moran. [address] [place] [address], [address], [place], [facility][note 3], . tel:[phone] Referring Provider: Ellie Weber, [address] [facility] [address], [place], [address]. tel:[phone] [place] [address], [place], [place], [address], [place] tel:[phone] [place] No Information Roman Weber. . Referring Provider: Ellie Weber, [address] [facility] [address], [place], [address]. tel:[phone] [facility] [address] [facility] [address], [place], [place], [address], [place] tel:[phone] [place] No Information Roman Weber. . Referring Provider: Elile Weber, [address] [facility] [address], [place], [address]. tel:[phone] [facility] [facility] [address], [place], [place], [address], tel:[phone] [place] No Information Roman Weber. . [facility] [facility] [address], [place], [place], [address], [place] tel:[phone] [place] No Information Vladrels Paula. . [facility] [address] [facility] [address], [place], [place], [address], [place] tel:[phone] [place] No Information Garo Moran. [address] [place] [address], [address], [place], [facility][note 3], [place]. tel:[phone] [facility] [facility] [address], [place], [place], [address], [place] tel:[phone] [place] No Information Garo Moran. [address] [place] [address], [address], [place], [facility][note 3], [place]. tel:[phone] [facility] [facility] [address], [place], [place], [address], [place] tel:[phone] [place] No Information Garrels Paula. . [facility], [place], [place], [address], [place] tel:[phone] [place] No Information Roman Weber. . [facility], [place], [place], [address], [place] tel:[phone] [place] No Information Garo Moran. [address] [facility], [address], [place], [address], [place]. tel:[phone] [facility], [place], [place], [address], [place] tel:[phone] [place] No Information Garrels Paula. . [facility], [place], [place], [address], [place] tel:[phone] [place] No Information Garrels Paula. . [facility], [place], [place], [address], [place] tel:[phone] [place] No Information Garrels Paula. . [facility], [place], [place], [address], [place] tel:[phone] [place] No Information Garrels Paula. . [facility], [place], [place], [address], [place] tel:[phone] [place] No Information Roman Gus. . [facility], [place], [place], [address], [place] tel:[phone] [place] No Information Garrels Paula. . [facility], [place], [place], [address], [place] tel:[phone] [place] No Information Abeba Krause. . [facility], [address], tel:[phone] [place] No Information Garo Moran. [address] [place] [address], [address], [place], [facility][note 3], . tel:[phone] [facility] [address], [address], [phone] [place] No Information Sonam Moctezuma. [address] [place] [address], . tel:[phone] [facility], [address], [phone] [place] No Information Garo Moran. [address] [place] [address], [facility] [address] [address], . tel:[phone] [facility], [address], [phone] [place] No Information Garrels Paula. . [facility], [address], tel:[phone] [place] No Information Garrels Paula. . [facility], [address], tel:[phone] [place] No Information Garrels Paula. . [facility], [address], tel:[phone] [place] No Information Elias Roe. . Family History Family Member Type Diagnosis Age At Onset No Information Payers Payer name Insurance type Covered libertarian ID Authoriza tion(s) [facility] [id number] [facility] LI 00 Social History Type Description Quantity [...]
--- OUTSIDE RECORDS SUMMARY | 2024-10-16 12:30 | XMS_ITS | Encounter Summary ---
Author Organization [facility] Healthcare Address [address] [place] [address] Care Team Providers Care Pairer Name Role Phone Ellie Weber Primary Care Provider [phone]- [phone] Reason for Visit * Reason Onset Date Comments Groin Pain 08/17/2024 Encounter Details Date Type Department Care Team (Late st Contact Info) Description 08/24/2024 Nurse Triage [facility] Medical Group Family Medicine [address] [place] [address] Ellie Weber PA [address] [place] [address] Social History Tobacco Use Types [...] on file Legal 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 Celestine Blake with [facility] at their [place]' office. Patient informed of appointment and that his office will be sending information/ new patient paperwork today. MAN * Telephone Encounter - Zita Ojeda MA - 08/24/2024 3:34 PM CST Called patient per provider and explained that the next step would be getting him into urology. [place] Patient will be advised when referral is complete. MAN * Telephone Encounter - Lexi Choi RN - 08/24/2024 9:03 AM CST Reason for Disposition Patient wants to be seen Protocols used: Scrotum Hajf-Scgna-AT Pt is a 28 y/o male calling [...] seen. No availability. Please contact pt at [phone]. Care advice given including Tylenol/Ibuprofen as directed and ice/heat as directed. Pt verbalized understanding and will call with worsening sx's. MAN * Telephone Encounter - Lexi Choi RN - 08/24/2024 8:57 AM CST Regarding: Severe groin pain & in the back of the right leg & going down the leg ----- Message from Marii Becker sent at 08/24/2024 8:47 AM PIPEMAN ----- Symptom Based Call Chief Complaint(s): Severe [...] Comments: Did go to the ED at [facility] on 08/20/24 but did not really determineanything and now the leg pain in severe and the groin pain is still present. Does message need to be routed? Yes-Action Needed MAN documented in this encounter Plan of Treatment Not on file documented as of this encounter Visit Diagnoses Not on filedocumented in this encounter Care Teams Pairer Relationship Specialty Start Date End Date Ellie Weber PA [address] [place] [address] PCP - General Internal Medicine 12/11/18 documented as of this encounter
--- OUTSIDE RECORDS SUMMARY | 2024-10-16 12:30 | XMS_ITS | Clinical Summary ---
Author Organization [facility] [place] [place] Address [address] [place] [address] Care Team Providers Care Supervisor Roving Department Name Role Phone Ellie Weber Primary Care Provider [phone]- [phone] Allergies Active Allergy Reactions Criticality Noted Date [...] (04/11/2024 12:36 PM CDT): Patient saw a oil treater and told the rash was eczema. Has [...] PPI Assessment & Plan (09/10/2020 9:45 AM TECHNOLOGY INSTRUCTOR): Discussed GERD at length including anatomy, behavioral changes (raise HOB, meal timings), dietary changes and medication options. Reviewed risks, benefits alternatives, side effects and proper use. Followup if sxs worsen or has hematochezia or hematemeis. Vertigo 08/19/2020 Assessment & Plan (09/10/2020 9:45 AM TECHNOLOGY INSTRUCTOR): Improving with the vestibular therapy Assessment & Plan (08/19/2020 2:12 PM TECHNOLOGY INSTRUCTOR): Patient has sxs consistent with vertigo. Unable [...] has a psychiatry appointment tomorrow in [facility]. He is frustrated because he [...] [facility] and [place], [place]. Advised he could increase the BuSpar [...] assistance. Provided name and contact information at [facility] further same-day behavioral/mental health clinic as this is always available for evaluation as a walk in. He was thankful for the information will contact if he needs more assistance Assessment & Plan (05/18/2023 1:28 PM TECHNOLOGY INSTRUCTOR): Patient has discontinued all his mental health [...] tid Assessment & Plan (09/10/2020 9:45 AM TECHNOLOGY INSTRUCTOR): See anxiety Assessment & Plan (01/10/2019 10:54 [...] tid Assessment & Plan (09/10/2020 9:45 AM TECHNOLOGY INSTRUCTOR): Start buspar 7.5tid Reviewed risks, benefit, alternatives, side effects and proper use. Assessment & Plan (08/19/2020 2:10 PM TECHNOLOGY INSTRUCTOR): Discussed medication for anxiety. Declines at this [...] 03/31/2024 Assessment & Plan (05/18/2023 1:28 PM TECHNOLOGY INSTRUCTOR): Neck pain seems to be continuing to [...] 023 Assessment & Plan (09/18/2022 3:28 PM TECHNOLOGY INSTRUCTOR): Weight/BMI is in healthy range. Continue healthy [...] 03/31/2024 Assessment & Plan (09/17/2020 7:34 PM TECHNOLOGY INSTRUCTOR): Already on Valtrex. Will try a little lotrisone to the area as may be a yeast component. If persists, will need an appointment for exam. May consider HSV antibodies. Denies STD/he is not high risk. Assessment & Plan (08/19/2020 2:09 PM TECHNOLOGY INSTRUCTOR): Check HSV IGg and IGM for TypeI and Type II. (HERPES SELECT) Continue valtrex. BMI 20.0-20.9, adult 10/21/2019 021 Assessment & Plan (09/10/2020 9:45 AM TECHNOLOGY INSTRUCTOR): Weight/BMI is in healthy range. Continue healthy lifestyle to maintain. Conjunctivitis 10/21/2019 03/31/2024 Assessment & Plan (10/21/2019 11:34 AM CDT): Conjunctivitis vs abrasion. Will treat with antibiotic drops. 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 Call if sxs worsen or don't resolve. 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 Assessment & Plan (10/15/2021 2:06 PM CDT): Continue Valtrex 500 mg 1 daily Has not had an outbreak in a long time Assessment & Plan (09/10/2020 9:45 AM TECHNOLOGY INSTRUCTOR): Increase to valtrex 1gm daily Possible exposure to STD 01/30/2016 Dysuria 01/30/2016 04/11/2024 Chicken pox 02/06/2009 08/19/2020 Overview (06/01/2018): Overview: 1998 Chicken pox 02/06/2009 03/31/2024 Overview (06/03/2022): 1998 Encounters Date Type Department Care Team Description 10/15/[address] [facility] Family Medicine [address] [phone] Ellie Weber PA 10/12/2024 8:00 AM CDT Office Visit [facility] Care at [address] [phone] Yadira Be NP Acute midline low back pain without sciatica (Primary Dx) 10/11/2024 Nurse Triage [address] [place] [phone] Ellie Weber PA 09/28/[address] [place] [phone] Ellie Weber PA Medical Question/Miscellaneo us 08/25/[address] [place] [phone] Ellie Weber PA 08/24/[address] [place] [phone] Ellie Weber PA 08/24/2024 Nurse Triage [address] [place] [phone] Ellie Weber PA from Last 3 Months [...] on file Legal Sex Male 12:13 PM TECHNOLOGY INSTRUCTOR Gender Identity Not on file Sexual Orientation [...] patient's age to complete this topic [place] [facility] Care Teams Supervisor Roving Department Relationship Specialty Start Date End Date Ellie Weber PA [facility] [address] [place] [address] PCP - General Internal Medicine 12/11/18
--- OUTSIDE RECORDS SUMMARY | 2024-10-16 12:30 | XMS_ITS | Referral Summary ---
Author Organization [facility] Address [address] [place] [address] Care Team Providers Care Boring Machine Operator Production Name Role Phone Ellie Weber Primary Care Provider [phone]- [phone] Encounters Date Type Department Care Team Description 10/15/2024 Telephone [facility] Medicine [address] [place] [address] Road [address] [place] [address] Ellie Weber PA 10/12/2024 8:00 AM CDT Office Visit [facility] at [address] [phone] Yadira Be, SUNNY Acute midline low back pain without sciatica (Primary Dx) 10/11/2024 Nurse Triage [facility] Medicine [address] [place] [address] Road [address] [place] [phone] Ellie Weber PA 09/28/2024 Telephone [facility] Medicine [address] [place] [address] [address] [place] [phone] Ellie Weber PA Medical Question/Miscellaneo us 08/25/2024 Telephone [facility] Medicine [address] [place] [address] [address] [place] [phone] Ellie Weber PA 08/24/2024 Telephone [facility] Medicine [address] [place] [address] Road [address] [place] [address] Ellie Weber PA 08/24/2024 Nurse Triage [facility] Medical [facility] Family Medicine [address] [facility] [place] [phone] Ellie Weber PA from Last 3 Months [...] (04/11/2024 12:36 PM CDT): Patient saw a bulk mail technician and told the rash was eczema. Has [...] PPI Assessment & Plan (09/10/2020 9:45 AM ASSISTANT DIRECTOR): Discussed GERD at length including anatomy, behavioral changes (raise HOB, meal timings), dietary changes and medication options. Reviewed risks, benefits alternatives, side effects and proper use. Followup if sxs worsen or has hematochezia or hematemeis. Vertigo 08/19/2020 Assessment & Plan (09/10/2020 9:45 AM ASSISTANT DIRECTOR): Improving with the vestibular therapy Assessment & Plan (08/19/2020 2:12 PM ASSISTANT DIRECTOR): Patient has sxs consistent with vertigo. Unable [...] He has a psychiatry appointment tomorrow in [facility]. He is frustrated because he [...] hours because these visits are located in [facility] and [place], [place]. Advised he could increase the BuSpar [...] assistance. Provided name and contact information at [facility] further same-day behavioral/mental health clinic as this is always available for evaluation as a walk in. He was thankful for the information will contact if he needs more assistance Assessment & Plan (05/18/2023 1:28 PM ASSISTANT DIRECTOR): Patient has discontinued all his mental health [...] tid Assessment & Plan (09/10/2020 9:45 AM ASSISTANT DIRECTOR): See anxiety Assessment & Plan (01/10/2019 10:54 [...] tid Assessment & Plan (09/10/2020 9:45 AM ASSISTANT DIRECTOR): Start buspar 7.5tid Reviewed risks, benefit, alternatives, side effects and proper use. Assessment & Plan (08/19/2020 2:10 PM ASSISTANT DIRECTOR): Discussed medication for anxiety. Declines at this [...] 03/31/2024 Assessment & Plan (05/18/2023 1:28 PM ASSISTANT DIRECTOR): Neck pain seems to be continuing to [...] 023 Assessment & Plan (09/18/2022 3:28 PM ASSISTANT DIRECTOR): Weight/BMI is in healthy range. Continue healthy [...] 03/31/2024 Assessment & Plan (09/17/2020 7:34 PM ASSISTANT DIRECTOR): Already on Valtrex. Will try a little lotrisone to the area as may be a yeast component. If persists, will need an appointment for exam. May consider HSV antibodies. Denies STD/he is not high risk. Assessment & Plan (08/19/2020 2:09 PM ASSISTANT DIRECTOR): Check HSV IGg and IGM for TypeI and Type II. (HERPES SELECT) Continue valtrex. BMI 20.0-20.9, adult 10/21/2019 021 Assessment & Plan (09/10/2020 9:45 AM ASSISTANT DIRECTOR): Weight/BMI is in healthy range. Continue healthy lifestyle to maintain. Conjunctivitis 10/21/2019 03/31/2024 Assessment & Plan (10/21/2019 11:34 AM CDT): Conjunctivitis vs abrasion. Will treat with antibiotic drops. 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 Call if sxs worsen or don't resolve. 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 Assessment & Plan (10/15/2021 2:06 PM CDT): Continue Valtrex 500 mg 1 daily Has not had an outbreak in a long time Assessment & Plan (09/10/2020 9:45 AM ASSISTANT DIRECTOR): Increase to valtrex 1gm daily Possible exposure [...] on file Legal Sex Male 12:13 PM ASSISTANT DIRECTOR Gender Identity Not on file Sexual Orientation [...] Treatment Not on file [place] Care Teams Boring Machine Operator Production Relationship Specialty Start Date End Date Ellie Weber PA [address] [facility] [address] [place] [address] PCP - General Internal Medicine 12/11/18
--- OUTSIDE RECORDS SUMMARY | 2024-10-16 12:30 | XMS_ITS | Continuity of Care Document ---
Author Organization [employer] [place] Address [address] [facility] [address] [place] [address] Phone Care Team Providers Care Supervisor Cellars Name Role Phone Jimi Us PT Unavailable Unavailable Procedures Procedure Date Progress Note Therapeutic Activities Neuromuscular Re-Ed Manual Therapy Therapeutic Exercise Therapeutic Activities Neuromuscular Re-Ed Therapeutic Exercise Hot or Cold Pack Therapeutic Activities Neuromuscular Re-Ed Hot or Cold Pack Therapeutic Exercise Therapeutic Activities Neuromuscular Re-Ed Therapeutic [...] Exercise Hot or Cold Pack Therapeutic Activities Therapeutic [...] Exercise Manual Therapy Hot or Cold Pack [employer] 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 . Referring Provider: Ellie Weber, [address] [facility] [address] [facility], [place], [address]. tel:[phone] [facility] [facility] [address], [place], [place], [address], [place] tel:[phone] [place] No Information Garo Moran. [address] [facility], [address], [place], [address], [place]. tel:[phone] Referring Provider: Ellie Weber, [address] [place] [address] Road [address], [place], [address]. tel:[phone] [place] [address] [facility], [place], [place], [address], [place] tel:[phone] [place] No Information Garo Moran. [address] [facility], [address], [place], [address], [place]. tel:[phone] Referring Provider: Ellie Weber, [address] [place] [address] Road [address], [place], [address]. tel:[phone] [place] [address] [facility], [place], [place], [address], [place] tel:[phone] [place] No Information Modglin Jimi. . Referring Provider: Ellie Weber, [address] [place] [address] Road [address], [place], [address]. tel:[phone] [facility] [address] [facility], [place], [place], [address], [place] tel:[phone] [place] No Information Modglin Jimi. . Referring Provider: Ellie Weber, [address] [place] [address] Road [address], [place], [address]. tel:[phone] [place] [address], [place], [place], [address], [place] tel:[phone] [place] No Information Modglin Jimi. . Referring Provider: Ellie Weber, [address] [place] [address] Road [address], [place], [address]. tel:[phone] [facility], [place], [place], [address], [place] tel:[phone] [place] No Information Garo Moran. [address] [facility], [address], [place], [place], [facility], [place]. tel:[phone] Referring Provider: Ellie Weber, [facility] [facility] [address] [facility] [address], [place], [address]. tel:[phone] [facility], [place], [place], [address], [place] tel:[phone] [place] No Information Roman Weber. . Referring Provider: Ellie Weber, [address] [place] [address] Road [address], [place], [address]. tel:[phone] [facility], [place], [place], [address], [place] tel:[phone] [place] No Information Roman Weber. . Referring Provider: Ellie Weber, [address] [place] [address] Road [address], [place], [address]. tel:[phone] [facility], [place], [place], [address], [place] tel:[phone] [place] No Information Wagner Mitchell. . Referring Provider: Ellie Weber, [address] [place] [address] Road [address], [place], [address]. tel:[phone] [facility], [place], [place], [address], [place] tel:[phone] [place] No Information Roman Weber. . Referring Provider: Ellie Weber, [address], [place], [address]. tel:[phone] [facility], [place], [place], [address], [place] tel:[phone] [place] No Information Roman Weber. . Referring Provider: Ellie Weber, [facility] [facility] [address], [place], [address]. tel:[phone] [facility], [place], [place], [address], [place] tel:[phone] [place] No Information Wagner Mitchell. . Referring Provider: Ellie Weber, [address] [place] [address] Road [address], [place], [address]. tel:[phone] [facility] [address] [facility] [address], [place], [place], [address], tel:[phone] [place] No Information Wagner Mitchell. . Referring Provider: Ellie Weber [address] [place] [address] [address], [place], [address]. tel:[phone] [facility] [address] [facility] [address], [place], [place], [address], [place] tel:[phone] [place] No Information Garo Moran. [address] [facility], [address], [place], [facility], . tel:[phone] Referring Provider: Ellie Weber, [address] [place] [address] [address], [place], [address]. tel:[phone] [facility], [place], [place], [address], [place] tel:[phone] [place] No Information Roman Weber. . Referring Provider: Ellie Weber, [facility] [facility] [address], [place], [address]. tel:[phone] [facility], [place], [place], [address], [place] tel:[phone] [place] No Information Roman Weber. . Referring Provider: Ellie Hollanddulce maria, [address], [place], [address]. tel:[phone] [address], [place], [place], [address], tel:[phone] [place] No Information Garo Moran. [address] [facility], [address], [place], [place], [facility], [place]. tel:[phone] Referring Provider: Ellie Carteraminah, [address], [place], [address]. tel:[phone] [address], [place], [place], [address], [place] tel:[phone] [place] No Information Garo Moran. [address] [facility], [address], [place], [place], [facility], [place]. tel:[phone] Referring Provider: Ellie Carteraminah, [address], [place], [address]. tel:[phone] [address], [place], [place], [address], [place] tel:[phone] [place] No Information Garo Moran. [address] [facility], [address], [place], [facility], [place]. tel:[phone] Referring Provider: Ellie Carteraminah, [address], [place], [address]. tel:[phone] [address], [place], [place], [address], [place] tel:[phone] [place] No Information Wagner Mitchell. . Referring Provider: Ellie Weber, [address], [place], [address]. tel:[phone] [facility], [address] [facility] [address], [place], [place], [address], [place] tel:[phone] [place] No Information Roman Weber. . Referring Provider: Ellie Weber, [address], [place], [address]. tel:[phone] [facility] [address] [facility] [address], [place], [place], [address], tel:[phone] [place] No Information Wagner Mitchell. . Referring Provider: Ellie Weber, [address] [place] [address] Road [address], [place], [address]. tel:[phone] [facility] [address] [facility] [address], [place], [place], [address], tel:[phone] [place] No Information Garo Moran. [address] [place] [address], [address], [place], [facility], . tel:[phone] Referring Provider: Ellie Weber, [facility] [facility] [address], [place], [address]. tel:[phone] [facility] [address] [facility] [address], [place], [place], [address], tel:[phone] [place] No Information Garo Moran. [address] [facility], [address], [place], [facility], [place]. tel:[phone] Referring Provider: Ellie Weber, [address], [place], [address]. tel:[phone] [facility] [address] [facility] [address], [place], [place], [address], tel:[phone] [place] No Information Garo Moran. [address] [facility], [address], [place], [facility], [place]. tel:[phone] Referring Provider: Ellie Weber, [address], [place], [address]. tel:[phone] [place], [place] [address], [place], [place], [address], tel:[phone] [place] No Information Hisky Gus. . Referring Provider: Ellie Weber, [address], [place], [address]. tel:[phone] [address], [place], [place], [address], [place] tel:[phone] [place] No Information Short Pat. . Referring Provider: Ellie Weber, [address], [place], [address]. tel:[phone] [place] [address] [address], [place], [place], [address], tel:[phone] [place] No Information Short Pat. . Referring Provider: Ellie Weber, [address], [place], [address]. tel:[phone] [address], [place], [place], [address], tel:[phone] [place] No Information Garo Moran. [address] [place] [address], [address], [place], [facility], . tel:[phone] Referring Provider: Ellie Weber, [address], [place], [address]. tel:[phone] [address], [place], [place], [address], tel:[phone] [place] No Information Garo Moran. [address] [place] [address], [address], [place], [place], [facility], [place]. tel:[phone] Referring Provider: Ellie Weber, [address], [place], [address]. tel:[phone] [facility], [address], [place], [place], [address], [place] tel:[phone] [place] No Information Short Pat. . Referring Provider: Ellie Weber, [address], [place], [address]. tel:[phone] [facility] [address], [place], [place], [address], [place] tel:[phone] [place] No Information Garo Moran. [address] [facility], [address], [place], [facility], . tel:[phone] Referring Provider: Ellie Weber, [facility], [place], [address]. tel:[phone] [facility] [address], [place], [place], [address], [place] tel:[phone] [place] No Information Hisgareth Weber. . Referring Provider: Elliemoraima Weber, [address], [place], [address]. tel:[phone] [facility] [address], [place], [place], [address], [place] tel:[phone] [place] No Information Garo Moran. [address] [facility], [address], [place], [facility], . tel:[phone] Referring Provider: Ellie Weber, [address], [place], [address]. tel:[phone] [facility], [place], [place], [address], [place] tel:[phone] [place] No Information Garo Moran. [address] [facility], [address], [place], [address], [place]. tel:[phone] Referring Provider: Ellie Weber, [address], [place], [address]. tel:[phone] [facility], [address], [place], [place], [address], [place] tel:[phone] [place] No Information Garo Moran. [address] [facility], [address], [place], [address], [place]. tel:[phone] Referring Provider: Ellie Weber, [address] [place] [address] Road [address], [place], [address]. tel:[phone] [facility] [address], [place], [place], [address], [place] tel:[phone] [place] No Information Roman Weber. . Referring Provider: Ellie Weber, [facility], [place], [address]. tel:[phone] [facility] [address], [place], [place], [address], [place] tel:[phone] [place] No Information Roman Weber. . Referring Provider: Ellie Weber, [address], [place], [address]. tel:[phone] [facility], [address], [place], [place], [address], [place] tel:[phone] [place] No Information Roge De La Cruz. . Referring Provider: Ellie Weber, [address], [place], [address]. tel:[phone] [facility], [place], [place], [address], [place] tel:[phone] [place] No Information Garo Moran. [address] [facility], [address], [place], [facility], [place]. tel:[phone] Referring Provider: Ellie Weber, [address] [place] [address] Road [address], [place], [address]. tel:[phone], [place], [place], [address], tel:[phone] [place] No Information Garo Moran. [address] [facility], [address], [place], [facility], [place]. tel:[phone] Referring Provider: Ellie Weber, [address] [place] [address] [address], [place], [address]. tel:[phone], [place], [place], [address], tel:[phone] [place] No Information Garo Moran. [address] [facility], [address], [place], [facility], [place]. tel:[phone] Referring Provider: Ellie Weber, [address] [place] [address] [address], [place], [address]. tel:[phone] [address], [place], [place], [address], tel:[phone] [place] No Information Roman Rodas . Referring Provider: Ellie Weber, [address] [place] [address] Road [address], [place], [address]. tel:[phone] [address], [place], [place], [address], tel:[phone] [place] No Information Garo Moran. [address] [facility], [address], [place], [facility], [place]. tel:[phone] Referring Provider: Ellie Weber, [address], [place], [address]. tel:[phone] [facility], [facility] [address], [place], [place], [address], tel:[phone] [place] No Information Garo Moran. [address] [facility], [address], [place], [facility], [place]. tel:[phone] Referring Provider: Ellie Weber, [address], [place], [address]. tel:[phone] [facility] [address] [place], [place] [address], [place], [place], [address], [place] tel:[phone] [place] No Information Garo Moran. [address] [facility], [address], [place], [facility], [place]. tel:[phone] Referring Provider: Ellie Weber, [facility], [place], [address]. tel:[phone] [facility] [address] [facility], [place], [place], [address], [place] tel:[phone] [place] No Information Saad Moran. . Referring Provider: Ellie Weber, [facility], [place], [address]. tel:[phone] [facility], [address], [place], [place], [address], [place] tel:[phone] [place] No Information Short Pat. . Referring Provider: Ellie Weber, [address], [place], [address]. tel:[phone] [facility], [address], [place], [place], [address], tel:[phone] [place] No Information Short Pat. . Referring Provider: Ellie Weber, [address], [place], [address]. tel:[phone] [facility] [address] [facility] [address], [place], [place], [address], [place] tel:[phone] [place] No Information Garo Moran. [address] [facility], [address], [place], [facility], [place]. tel:[phone] Referring Provider: Ellie Weber, [address], [place], [address]. tel:[phone] [facility] [address] [facility] [address], [place], [place], [address], [place] tel:[phone] [place] No Information Garo Moran. [address] [place] [address], [address], [place], [facility], [place]. tel:[phone] Referring Provider: Ellie Weber, [address], [place], [address]. tel:[phone] [facility] [address] [facility] [address], [place], [place], [address], [place] tel:[phone] [place] No Information Short Pat. . Referring Provider: Ellie Weber, [facility], [place], [address]. tel:[phone] [facility] [address] [facility] [address], [place], [place], [address], [place] tel:[phone] [place] No Information Garo Moran. [address] [place] [address], [address], [place], [facility], . tel:[phone] Referring Provider: Ellie Weber, [address], [place], [address]. tel:[phone] [place] [address], [place], [place], [address], [place] tel:[phone] [place] No Information Roman Weber. . Referring Provider: Ellie Weber, [address], [place], [address]. tel:[phone] [facility] [address] [facility] [address], [place], [place], [address], [place] tel:[phone] [place] No Information Roman Weber. . Referring Provider: Ellie Weber, [address], [place], [address]. tel:[phone] [facility] [facility] [address], [place], [place], [address], tel:[phone] [place] No Information Roman Weber. . [facility] [facility] [address], [place], [place], [address], [place] tel:[phone] [place] No Information Vladrels Paula. . [facility] [address] [facility] [address], [place], [place], [address], [place] tel:[phone] [place] No Information Garo Moran. [address] [place] [address], [address], [place], [facility], [place]. tel:[phone] [facility] [facility] [address], [place], [place], [address], [place] tel:[phone] [place] No Information Garo Moran. [address] [place] [address], [address], [place], [facility], [place]. tel:[phone] [facility] [facility] [address], [place], [place], [address], [place] tel:[phone] [place] No Information Garrels Paula. . [facility], [place], [place], [address], [place] tel:[phone] [place] No Information Roman Weber. . [facility], [place], [place], [address], [place] tel:[phone] [place] No Information Garo Moran. [address] [facility], [address], [place], [address], [place]. tel:[phone] [facility], [place], [place], [address], [place] tel:[phone] [place] No Information Garrels Paula. . [facility], [place], [place], [address], [place] tel:[phone] [place] No Information Garrels Paula. . [facility], [place], [place], [address], [place] tel:[phone] [place] No Information Garrels Paula. . [facility], [place], [place], [address], [place] tel:[phone] [place] No Information Garrels Paula. . [facility], [place], [place], [address], [place] tel:[phone] [place] No Information Roman Gus. . [facility], [place], [place], [address], [place] tel:[phone] [place] No Information Garrels Paula. . [facility], [place], [place], [address], [place] tel:[phone] [place] No Information Abeba Krause. . [facility], [address], tel:[phone] [place] No Information Garo Moran. [address] [place] [address], [address], [place], [facility], . tel:[phone] [facility] [address], [id number], [phone] [place] No Information Sonam Moctezuma. [address] [place] [address], . tel:[phone] [facility], [address], [phone] [place] No Information Garo Moran. [address] [place] [address], [facility] [address] [address], . tel:[phone] [facility], [address], [phone] [place] No Information Garrels Paula. . [facility], [address], tel:[phone] [place] No Information Garrels Paula. . [facility], [address], tel:[phone] [place] No Information Garrels Paula. . [facility], [id number], tel:[phone] [place] No Information Elias Roe. . Family History Family Member Type Diagnosis Age At Onset No Information Payers Payer name Insurance type Covered libertarian ID Authoriza tion(s) [facility] [id number] [facility] LI 00 Social History Type Description [...]
--- OUTSIDE RECORDS SUMMARY | 2024-10-16 12:30 | XMS_ITS | Encounter Summary ---
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 [place] . If felt that at this time it would be safe to end the call and call the provider. His PCP was not in the office so I placed a call to her cell. She instructed me to encourage the patient to go to the walk in clinic at [facility] to see a preparation plant supervisor so they couldevaluate him and possibly prescribe [...] on filedocumented in this encounter Care Teams Nut Roaster Relationship Specialty Start Date End Date Ellie Weber PA [address] [facility] [address] [place] [address] PCP - General Internal Medicine 12/11/18 documented as of this encounter
--- OUTSIDE RECORDS SUMMARY | 2024-10-16 12:30 | XMS_ITS | Clinical Summary ---
Author Organization [facility] Address [address] [place] [address] Care Team Providers Care Tunnel Mucker Name Role Phone Ellie Weber PA-C Primary Care Provider [phone] -[phone] Source Comments [facility],non[facility] Affiliates and Associated Physician Practices is amultiple site organization consisting of ambulatory clinics and hospital sitesin [place], [place], [place] and [place]. This disclosure is being madepursuant to the Care Everywhere program and may not contain all information available regarding this patient. Last updated 18.[facility] [place] Allergies Active Allergy Reactions Criticality Noted Date [...] CDT 09/25/2016 Narrative Resulting Agency Comment [facility] [address] [id number] Martin Ngo MD LAB - SEROLOGY ORDER [facility] ACCOUNT BILL [address] [place] [address] from Last 3 Months or Most Recently Relevant to Health Maintenance Care Teams Tunnel Mucker Relationship Specialty Start Date End Date Ellie Weber, PAMauriceC [address] [facility] [address] [address] [place] [address] PCP - General Physician Supervisor Dials 02/07/22
--- OUTSIDE RECORDS SUMMARY | 2024-10-16 12:30 | XMS_ITS | Encounter Summary ---
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
--- NOTE | 2024-10-16 12:37 | ED_ITS ---
HPI - Extremity Injury (Upper) General Chief Complaint: Extremity Injury, Upper Stated Complaint: R hand injury Time Seen by Provider: 10/16/24 12:22 Source: patient Mode of arrival: ambulatory Limitations: no limitations History of Present Illness HPI narrative: 28 years old male came to the ED by private car complaining of right hand pain. Patient punched a wall yesterday because was so stressed at work. He denies other injuries. Related Data Allergies Allergy/AdvReac Type Severity Reaction Status Date / Time meloxicam AdvReac Headache Verified 10/16/24 12:07 Review of Systems Review of Systems: All systems reviewed & are unremarkable except as noted in HPI and below Exam Narrative: General appearance: Well-developed, well-nourished Skin: Normal color Head: Normocephalic, nontraumatic Eyes: Clear conjunctiva ENT: Oropharynx normal, ears normal, nose normal Neck: Supple, nontender Chest and respiratory: Airway patent, no respiratory distress, no accessory m uscle use Heart: Regular rate/rhythm Abdomen: Soft, nontender, no organomegaly, quiet bowel sounds Vascular: Normal peripheral pulses, normal capillary refill. Musculoskeletal: Right hand exam showed diffuse tenderness dorsally and hematoma. Slight limited range of motion of the fingers Neurologic: Alert and oriented ?3, RAISER HELPER is normal as tested, no gross motor deficit Course Vital Signs Vital signs: Vital Signs Temperature 36.4 C L 10/16/24 12:08 Pulse Rate 63 10/16/24 12:08 Respiratory Rate 14 10/16/24 12:08 Blood Pressure 114/66 10/16/24 12:08 Pulse Oximetry 100 10/16/24 12:08 Oxygen Delivery Room Air 10/16/24 12:08 Temperature 36.4 C L 10/16/24 12:08 Pulse Rate 63 10/16/24 12:08 Respiratory Rate 14 10/16/24 12:08 Blood Pressure 114/66 10/16/24 12:08 Pulse Oximetry 100 10/16/24 12:08 Oxygen Delivery Room Air 10/16/24 12:08 MDM - Extremity Injury (Upper) MDM Narrative Medical decision making narrative: Differential diagnosis include contusion versus fracture X-ray of the right hand showed no acute osseous abnormality Differential Diagnosis Differential diagnosis: Likely other (As above) Imaging Data Radiologist's impression: Impressions Hand X-Ray 10/16/24 13:26 IMPRESSION: 1. Normal right hand radiographs. Critical Care Time Critical Care Time Critical Care Time: No Discharge Plan Discharge Clinical Impression: Contusion of dorsum of right hand Patient Disposition: Home, Self-Care Condition: Stable Instructions: Hematoma (ED) Additional Instructions: Return if symptoms are worsening , call your family physician for appointment, take Tylenol, ibuprofen as as needed for aches and pain, continue home medications. Keep hand elevated Patient Language: Slovenian Prescriptions: No Action ibuprofen 600 mg tablet 600 mg PO Q6H PRN (Reason: pain) Qty: 30 0RF Benadryl 2 % gel 1 applic topical BID PRN (Reason: skin irritation) Qty: 103 0RF cyclobenzaprine 5 mg tablet 5 mg PO HS PRN (Reason: muscle spasm) Qty: 10 0RF naproxen 250 mg tablet 250 mg PO BID PRN (Reason: pain) Qty: 14 0RF levofloxacin 500 mg tablet 500 mg PO DAILY Qty: 10 0RF acetaminophen 500 mg tablet 1,000 mg PO TID PRN (Reason: maximiliano) 7 Days Qty: 42 0RF ibuprofen 800 mg tablet 800 mg PO TID PRN (Reason: pain) 7 Days Qty: 21 0RF Follow-up/Referrals: Tia,REJI Argueta [Primary Care Provider] -
== END 2024-10-16 14:10 | disposition home or self-care (01) ==
PROVIDERS: Emergency Provider Emergency Medicine; PCP Physician Assistant
DX: S60.221A Contusion of right hand, initial encounter (principal); W22.09XA Striking against other stationary object, initial encounter
CPT/HCPCS: 73130; 99283

== ENCOUNTER 2024-11-17 00:41 | Emergency (ER) | payer BC, SELFPAY ==
--- NOTE | ~2024-11-17 | CT_ITS ---
Non-contrast Head CT History: Concussion COMPARISON: 09/02/2022 Technique: Axial non-contrast imaging of the brain was performed. Dose reduction technique was used on this scan by utilizing automated exposure control and iterative reconstruction technique. The dose -length product (DLP) was 605.33 mGy-cm. Findings: There is no evidence of intracranial hemorrhage, mass lesion, or acute infarct. Brain par enchyma appears normal. The ventricles and subarachnoid spaces are normal in size. The calvarium ap pears normal. The visualized paranasal sinuses and mastoid air cells are clear. Impression: No significant abnormality seen. Reviewed, dictated and finalized at location . Impression: No significant abnormality seen.
[2024-11-17 00:44] VITALS: BP 113/67; PULSE 58; RESP 15; TEMP 35.9; O2SAT 100
--- OUTSIDE RECORDS SUMMARY | 2024-11-17 00:44 | XMS_ITS | Encounter Summary ---
Author Organization [facility] Healthcare Address [address] [place] [address] Care Team Providers Care Roll Cleaner Name Role Phone Ellie Weber Primary Care Provider +1- [phone] Reason for Visit * Reason Onset Date Comments Groin Pain 08/17/2024 Encounter Details Date Type Department Care Team (Late st Contact Info) Description 08/24/2024 Nurse Triage [facility] Medical Group Family Medicine [address] [place] [address] Ellie Weber PA [address] [place] [address] Social History Tobacco Use Types [...] on file Legal Sex Male 12:13 PM DATA MANAGER Gender Identity Not on file Sexual Orientation Not on file documented as of this encounter Miscellaneous Notes * Telephone Encounter - Zita Ojeda MA - 08/25/2024 9:29 AM CST Patient scheduled with Dr. Celestine Blake with [facility] at their [place] office. Patient informed of appointment and that his office will be sending information/ new patient paperwork today. MANAGER * Telephone Encounter - Zita Ojeda MA - 08/24/2024 3:34 PM CST Called patient per provider and explained that the next step would be getting him into urology. [place] Patient will be advised when referral is complete. MANAGER * Telephone Encounter - Lexi Choi RN - 08/24/2024 9:03 AM CST Reason for Disposition Patient wants to be seen Protocols used: Scrotum [id number] Pt is a 28 y/o male calling [...] seen. No availability. Please contact pt at [phone]. Care advice given including Tylenol/Ibuprofen as directed and ice/heat as directed. Pt verbalized understanding and will call with worsening sx's. MANAGER * Telephone Encounter - Lexi Choi RN - 08/24/2024 8:57 AM CST Regarding: Severe groin pain & in the back of the right leg & going down the leg ----- Message from Marii Becker sent at 08/24/2024 8:47 AM DATA MANAGER ----- Symptom Based Call Chief Complaint(s): Severe [...] Comments: Did go to the ED at [facility] on 08/20/24 but did not really determineanything and now the leg pain in severe and the groin pain is still present. Does message need to be routed? Yes-Action Needed MANAGER documented in this encounter Plan of Treatment Not on file documented as of this encounter Visit Diagnoses Not on filedocumented in this encounter Care Teams Roll Cleaner Relationship Specialty Start Date End Date Ellie Weber PA [address] [place] [address] PCP - General Internal Medicine 12/11/18 documented as of this encounter
--- OUTSIDE RECORDS SUMMARY | 2024-11-17 00:44 | XMS_ITS | Continuity of Care Document ---
Author Organization [employer] [place] Address [address] [facility] [address] [place] [address] Phone Care Team Providers Care Napkin Machine Operator Name Role Phone Jimi Us PT Unavailable [...] Note Therapeutic Activities Neuromuscular Re-Ed Therapeutic Exercise Hot [...] Exercise Manual Therapy Hot or Cold Pack SPIRAL [employer]ING W[employer]ER Acute Work Conditioning Initial 2 hrs 023 Work Conditioning Initial 2 hrs 023 Work Conditioning Initial 2 hrs 023 Work Conditioning Initial 2 hrs 023 Work Conditioning Initial 2 hrs 023 Work Conditioning Initial 2 hrs 023 Work Conditioning Initial 2 hrs 023 SP[employer]ER Acute Work Conditioning Initial 2 hrs 023 [...] Diagnoses Date Provider Providers Copied on Encounter [facility] [place] [address], [place], [place], [id number], [place] tel:[phone] [place] No Information Abeba Krause. . Referring Provider: Ellie Weber, [address] [facility] [address] [facility], [place], [address]. tel:[phone] [facility] [facility] [address], [place], [place], [id number], [place] tel:[phone] [place] No Information Garo Moran. [address] [facility], [address], [place], [address], [place]. tel:[phone] Referring Provider: Ellie Weber, [address] [place] [address] Road [address], [place], [address]. tel:[phone] [place] [address], [place], [place], [address], [place] tel:[phone] [place] No Information Garo Moran. [address] [facility], [address], [place], [address], [place]. tel:[phone] Referring Provider: Ellie Weber, [address] [place] [address] Road [address], [place], [address]. tel:[phone] [place] [address] [address], [place], [place], [address], [place] tel:[phone] [place] No Information Modglin Jimi. . Referring Provider: Ellie Weber, [address] [place] [address] Road [address], [place], [address]. tel:[phone] [facility] [address], [place], [place], [address], [place] tel:[phone] [place] No Information Modglin Jimi. . Referring Provider: Ellie Weber, [address] [place] [address] Road [address], [place], [address]. tel:[phone] [place] [address] [address], [place], [place], [address], [place] tel:[phone] [place] No Information Modglin Jimi. . Referring Provider: Ellie Wbeer, [address] [place] [address] Road [address], [place], [address]. tel:[phone] [facility], [place], [place], [address], [place] tel:[phone] [place] No Information Garo Moran. [address] [facility], [address], [place], [place], [place], [place]. tel:[phone] Referring Provider: Ellie Weber, [facility] [facility] [address], [place], [address]. tel:[phone] [facility], [place], [place], [address], [place] tel:[phone] [place] No Information Roman Weber. . Referring Provider: Ellie Weber, [address] [place] [address] Road [address], [place], [address]. tel:[phone] [facility], [place], [place], [address], [place] tel:[phone] [place] No Information Roman Weber. . Referring Provider: Ellie Weber, [address] [place] [address] Road [address], [place], [address]. tel:[phone] [facility], [place], [place], [address], [place] tel:[phone] [place] No Information Wagner Mitchell. . Referring Provider: Ellie Weber, [address] [place] [address] Road [address], [place], [address]. tel:[phone] [facility], [place], [place], [address], [place] tel:[phone] [place] No Information Rmoan Weber. . Referring Provider: Ellie Weber, [address] [facility] [address], [place], [address]. tel:[phone] [facility], [place], [place], [address], [place] tel:[phone] [place] No Information Roman Weber. . Referring Provider: Ellei Weber, [facility] [facility] [address], [place], [address]. tel:[phone] [facility], [place], [place], [address], [place] tel:[phone] [place] No Information Wagner Mitchell. . Referring Provider: Ellie Weber, [address] [place] [address] Road [address], [place], [address]. tel:[phone] [facility] [address], [place], [place], [address], tel:[phone] [place] No Information Wagner Mitchell. . Referring Provider: Ellie Weber [address] [place] [address] [address], [place], [address]. tel:[phone] [facility] [address], [place], [place], [address], [place] tel:[phone] [place] No Information Garo Moran. [address] [facility], [address], [place], [place], . tel:[phone] Referring Provider: Ellie Weber, [address] [place] [address] [address], [place], [address]. tel:[phone] [facility], [place], [place], [address], [place] tel:[phone] [place] No Information Roman Weber. . Referring Provider: Ellie Weber, [facility] [facility] [address], [place], [address]. tel:[phone] [facility], [place], [place], [address], [place] tel:[phone] [place] No Information Roman Weber. . Referring Provider: Ellie Hollanddulce maria, [address] [facility] [address], [place], [address]. tel:[phone] [address], [place], [place], [address], tel:[phone] [place] No Information Garo Moran. [address] [facility], [address], [place], [place], [place], [place]. tel:[phone] Referring Provider: Ellie Carteraminah, [address] [facility] [address], [place], [address]. tel:[phone] [address], [place], [place], [address], [place] tel:[phone] [place] No Information Garo Moran. [address] [facility], [address], [place], [place], [place]. tel:[phone] Referring Provider: Ellie Carteraminah, [address] [facility] [address], [place], [address]. tel:[phone] [address], [place], [place], [address], [place] tel:[phone] [place] No Information Garo Moran. [address] [facility], [address], [place], [place], [place]. tel:[phone] Referring Provider: Ellie Carteraminah, [address], [place], [address]. tel:[phone] [address], [place], [place], [address], [place] tel:[phone] [place] No Information Wagner Mitchell. . Referring Provider: Ellie Weber, [address] [facility] [address], [place], [address]. tel:[phone] [facility], [address], [place], [place], [address], [place] tel:[phone] [place] No Information Roman Weber. . Referring Provider: Ellie Weber, [address] [facility] [address], [place], [address]. tel:[phone] [facility] [address], [place], [place], [address], tel:[phone] [place] No Information Wagner Mitchell. . Referring Provider: Ellie Weber, [address] [place] [address] Road [address], [place], [address]. tel:[phone] [facility] [address], [place], [place], [address], tel:[phone] [place] No Information Garo Moran. [address] [place] [address], [address], [place], [place], . tel:[phone] Referring Provider: Ellie Weber, [facility] [facility] [address], [place], [address]. tel:[phone] [facility] [address], [place], [place], [address], tel:[phone] [place] No Information Garo Moran. [address] [facility], [address], [place], [place], [place]. tel:[phone] Referring Provider: Ellie Weber, [address] [facility] [address], [place], [address]. tel:[phone] [facility] [address], [place], [place], [address], tel:[phone] [place] No Information Garo Moran. [address] [facility], [address], [place], [place], [place]. tel:[phone] Referring Provider: Ellie Weber, [address] [facility] [address], [place], [address]. tel:[phone] [place], [place] [address], [place], [place], [address], tel:[phone] [place] No Information Hisky Gus. . Referring Provider: Ellie Weber, [address] [facility] [address], [place], [address]. tel:[phone] [address], [place], [place], [address], [place] tel:[phone] [place] No Information Short Pat. . Referring Provider: Ellie Weber, [address] [facility] [address], [place], [address]. tel:[phone] [place] [address] [address], [place], [place], [address], tel:[phone] [place] No Information Short Pat. . Referring Provider: Ellie Weber, [address] [facility] [address], [place], [address]. tel:[phone] [address], [place], [place], [address], tel:[phone] [place] No Information Garo Moran. [address] [place] [address], [address], [place], [place], . tel:[phone] Referring Provider: Ellie Weber, [address] [facility] [address], [place], [address]. tel:[phone] [address], [place], [place], [address], tel:[phone] [place] No Information Garo Moran. [address] [place] [address], [address], [place], [place], [place]. tel:[phone] Referring Provider: Ellie Weber, [address] [facility] [address], [place], [address]. tel:[phone] [facility], [address], [place], [place], [address], [place] tel:[phone] [place] No Information Short Pat. . Referring Provider: Ellie Weber, [address] [facility] [address], [place], [address]. tel:[phone] [facility] [address], [place], [place], [address], [place] tel:[phone] [place] No Information Garo Moran. [address] [facility], [address], [place], [place], . tel:[phone] Referring Provider: Ellie Weber, [facility] [facility] [address], [place], [address]. tel:[phone] [facility] [address], [place], [place], [address], [place] tel:[phone] [place] No Information Hisgareth Weber. . Referring Provider: Elliemoraima Weber, [address] [facility] [address], [place], [address]. tel:[phone] [facility] [address], [place], [place], [address], [place] tel:[phone] [place] No Information Garo Moran. [address] [facility], [address], [place], [place], . tel:[phone] Referring Provider: Ellie Weber, [address] [facility] [address], [place], [address]. tel:[phone] [facility], [place], [place], [address], [place] tel:[phone] [place] No Information Garo Moran. [address] [facility], [address], [place], [address], [place]. tel:[phone] Referring Provider: Ellie Weber, [address] [facility] [address], [place], [address]. tel:[phone] [facility], [address], [place], [address], [place] tel:[phone] [place] No Information Garo Moran. [address] [facility], [address], [place], [address], [place]. tel:[phone] Referring Provider: Ellie Weber, [address] [place] [address] Road [address], [place], [address]. tel:[phone] [facility] [address], [place], [place], [address], [place] tel:[phone] [place] No Information Roman Weber. . Referring Provider: Ellie Weber, [facility] [facility] [address], [place], [address]. tel:[phone] [facility] [address], [place], [place], [address], [place] tel:[phone] [place] No Information Roman Weber. . Referring Provider: Ellie Weber, [address] [facility] [address], [place], [address]. tel:[phone] [facility], [address], [place], [place], [address], [place] tel:[phone] [place] No Information Roge De La Cruz. . Referring Provider: Ellie Weber, [address] [facility] [address], [place], [address]. tel:[phone] [facility], [place], [place], [address], [place] tel:[phone] [place] No Information Garo Moran. [address] [facility], [address], [place], [place], [place]. tel:[phone] Referring Provider: Ellie Weber, [address] [place] [address] Road [address], [place], [address]. tel:[phone], [place], [place], [address], tel:[phone] [place] No Information Garo Moran. [address] [facility], [address], [place], [place], [place]. tel:[phone] Referring Provider: Ellie Weber, [address] [place] [address] [address], [place], [address]. tel:[phone], [place], [place], [address], tel:[phone] [place] No Information Garo Moran. [address] [facility], [address], [place], [place], [place]. tel:[phone] Referring Provider: Ellie Weber, [address] [place] [address] [address], [place], [address]. tel:[phone] [address], [place], [place], [address], tel:[phone] [place] No Information Roman Rodas . Referring Provider: Ellie Weber, [address] [place] [address] Road [address], [place], [address]. tel:[phone] [address], [place], [place], [address], tel:[phone] [place] No Information Garo Moran. [address] [facility], [address], [place], [place], [place]. tel:[phone] Referring Provider: Ellie Weber, [address] [facility] [address], [place], [address]. tel:[phone] [facility], [facility] [address], [place], [place], [address], tel:[phone] [place] No Information Garo Moran. [address] [facility], [address], [place], [place], [place]. tel:[phone] Referring Provider: Ellie Weber, [address] [facility] [address], [place], [address]. tel:[phone] [facility] [address] [place], [place] [address], [place], [address], [place] tel:[phone] [place] No Information Garo Moran. [address] [facility], [address], [place], [place], [place]. tel:[phone] Referring Provider: Ellie Weber, [facility] [facility] [address], [place], [address]. tel:[phone] [facility] [address], [place], [place], [address], [place] tel:[phone] [place] No Information Saad Moran. . Referring Provider: Ellie Weber, [facility] [facility] [address], [place], [address]. tel:[phone] [facility], [address], [place], [address], [place] tel:[phone] [place] No Information Short Pat. . Referring Provider: Ellie Weber, [address] [facility] [address], [place], [address]. tel:[phone] [facility], [address], [place], [place], [address], tel:[phone] [place] No Information Short Pat. . Referring Provider: Ellie Weber, [address] [facility] [address], [place], [address]. tel:[phone] [facility] [address], [place], [address], [place] tel:[phone] [place] No Information Garo Moran. [address] [facility], [address], [place], [place], [place]. tel:[phone] Referring Provider: Ellie Weber, [address] [facility] [address], [place], [address]. tel:[phone] [facility] [address], [place], [address], [place] tel:[phone] [place] No Information Garo Moran. [address] [place] [address], [address], [place], [place], [place]. tel:[phone] Referring Provider: Ellie Weber, [address] [facility] [address], [place], [address]. tel:[phone] [facility] [address], [place], [place], [address], [place] tel:[phone] [place] No Information Short Pat. . Referring Provider: Ellie Weber, [facility] [facility] [address], [place], [address]. tel:[phone] [facility] [address], [place], [place], [address], [place] tel:[phone] [place] No Information Garo Moran. [address] [place] [address], [address], [place], [place], . tel:[phone] Referring Provider: Ellie Weber, [address] [facility] [address], [place], [address]. tel:[phone] [place] [address], [place], [place], [address], [place] tel:[phone] [place] No Information Roman Weber. . Referring Provider: Ellie Weber, [address] [facility] [address], [place], [address]. tel:[phone] [facility] [address], [place], [place], [address], [place] tel:[phone] [place] No Information Roman Weber. . Referring Provider: Ellie Weber, [address] [facility] [address], [place], [address]. tel:[phone] [facility], [place], [place], [address], tel:[phone] [place] No Information Roman Weber. . [facility], [place], [place], [address], [place] tel:[phone] [place] No Information Vladrels Paula. . [facility] [address], [place], [place], [address], [place] tel:[phone] [place] No Information Garo Moran. [address] [place] [address], [address], [place], [place], [place]. tel:[phone] [facility], [place], [place], [address], [place] tel:[phone] [place] No Information Garo Moran. [address] [place] [address], [address], [place], [place], [place]. tel:[phone] [facility], [place], [address], [place] tel:[phone] [place] No Information Garrels Paula. . [facility], [place], [place], [address], [place] tel:[phone] [place] No Information Roman Weber. . [facility], [place], [place], [address], [place] tel:[phone] [place] No Information Garo Moran. [address] [facility], [address], [place], [address], [place]. tel:[phone] [facility], [place], [address], [place] tel:[phone] [place] No Information Garrels Paula. . [facility], [place], [place], [address], [place] tel:[phone] [place] No Information Garrels Paula. . [facility], [place], [place], [address], [place] tel:[phone] [place] No Information Garrels Paula. . [facility], [place], [place], [address], [place] tel:[phone] [place] No Information Garrels Paula. . [facility], [place], [place], [address], [place] tel:[phone] [place] No Information Roman Gus. . [facility], [place], [place], [address], [place] tel:[phone] [place] No Information Garrels Paula. . [facility], [place], [address], [place] tel:[phone] [place] No Information Abeba Krause. . [facility], [id number], tel:[phone] [place] No Information Garo Moran. [address] [place] [address], [address], [place], [place], . tel:[phone] [facility] [address], [id number], [phone] [place] No Information Sonam Moctezuma. [address] [place] [address], . tel:[phone] [facility], [address], [phone] [place] No Information Garo Moran. [address] [place] [address], [facility] [address] [address], . tel:[phone] [facility], [address], [phone] [place] No Information Garrels Paula. . [facility], [address], tel: [phone] [place] No Information Garrels Paula. . [facility], [address], tel:[phone] [place] No Information Garrels Paula. . [facility], [address], tel:[phone] [place] No Information Elias Roe. . Family History Family Member Type Diagnosis Age At Onset No Information Payers Payer name Insurance type Covered green party ID Authoriza tion(s) [facility] [id number] [facility] LI 00 Social History Type Description [...]
--- OUTSIDE RECORDS SUMMARY | 2024-11-17 00:44 | XMS_ITS | Encounter Summary ---
Author Organization [facility] Healthcare Address [address] [place] [address] Care Team Providers Care Coil Builder Name Role Phone Ellie Weber Primary Care Provider [phone]- [phone] Reason for Visit * Reason Onset Date Comments Recommendation Request 10/21/2024 Encounter Details Date Type Department Care Team (Late st Contact Info) Description 10/21/2024 Telephone [facility] Medical [facility] Family Medicine [address] [place] [address] Ellie Weber PA [address] [place] [address] Recommendation Request Social History Tobacco Use Types Packs/Day Years Used Date Smoking Tobacco: Never Smokeless Tobacco: Never Alcohol Use Standard Drinks/Week Comments Yes 0 (1 standard drink = 0.6 oz pur e alcohol) social AUDIT-C Answer Date Recorded Q1: How often do you have a drink containing alc ohol? 2-3 times a week 10/21/2024 Q2: How many drinks containi ng alcohol do you have on a typical day when you are drinking? 1 or 2 10/21/2024 Q3: How often do you have si x or more drinks on one occasion? 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 2-3 times a week 10/21/2024 7:38 AM CDT Margaret Brito M A Q2: How many drinks containing alcohol do you have on a typical day when you are drinking? 1 or 2 10/21/2024 7:38 AM CDT Margaret Brito M A Q3: How often do you have six or more drinks on one occasion? Never 10/21/2024 7:38 AM ANDIET Margaret Brito M A documented as of this encounter Miscellaneous Notes * Telephone Encounter - Malia Taylor LPN - 10/25/2024 3:49 PM CDT Referral placed and faxed. Called and made pt aware and provided phone number. * Telephone Encounter - Ellie Weber PA - 10/25/2024 3:18 PM CDT Ok to refer him to [facility] in [place] -- Dx: neck and back pain * Telephone Encounter - Radha Young - 10/21/2024 10:47 AM CDT Recommendation Request Note: This request is for a specialty recommendation, not an insurance referral. Specialty: Pain Management Why does the patient want to go to this specialist? Steroid injections for back & neck pain. Additional Comments/Concerns: patient saw REJI Argueta this morning and she referred him to PT but he doesn't want to go to PT because he can do the same exercises at home. Patient is asking if REJI Argueta will refer him to PM doctor in the [facility] area, to get steroid injections for his back & neck. Patient would like a call back with the new referral info. Does message need to be routed? Yes-Action Needed documented in this encounter Plan of Treatment Not on file documented as of this encounter Visit Diagnoses Not on filedocumented in this encounter Care Teams Coil Builder Relationship Specialty Start Date End Date Ellie Weber PA [address] [facility] [address] [place] [address] PCP - General Internal Medicine 12/11/18 documented as of this encounter
--- OUTSIDE RECORDS SUMMARY | 2024-11-17 00:44 | XMS_ITS | Clinical Summary ---
Author Organization [facility] Address [address] [facility] [place] [address] Care Team Providers Care Postbed Stitcher Name Role Phone Ellie Weber PA-C Primary Care Provider [phone] -[phone] Source Comments [facility],non-owned Affiliates and Associated Physician Practices is amultiple site organization consisting of ambulatory clinics and hospital sitesin [place], [place], [place] and [place]. This disclosure is being madepursuant to the Care Everywhere program and may not contain all information available regarding this patient. Last updated 18.[facility] [place] Allergies Active Allergy Reactions Criticality Noted Date Comments Meloxicam Headache Low 06/03/2022 Similar to a migraine, as of 02-15-22. Medications * Be aware that medications may not be up to date on this document. Alwaysverify current medications with the patient. 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 Gender Identity Not on file Sexual Orientation [...] 04/11/1998, 03/17/1997, Additional history exists COVID-19 VACCINE (1 - season) 2024 DEPRESSION SCREENING 07/14/2024 01/31/2024 INFLUENZA [...] CDT 09/25/2016 Narrative Resulting Agency Comment [facility] [place] [address] [facility] [phone] Martin Ngo MD LAB - SEROLOGY ORDERABLES Final Result [facility] ACCOUNT BILL [address] [place] [address] from Last 3 Months or Most Recently Relevant to Health Maintenance Insurance KARINA ANTHEM PAYOR GENERIC * Guarantor: [employer] Account Type Relation to Patient Date of Phone Billing Address Personal/Family 1995 Roselia DENNIS [address] [place] [address] Care Teams Postbed Stitcher Relationship Specialty Start Date End Date Ellie Weber PAMauriceC [address] [facility] [address] [place] [address] PCP - General Physician Circuit Tester 02/07/22
--- OUTSIDE RECORDS SUMMARY | 2024-11-17 00:44 | XMS_ITS | Clinical Summary ---
Author Organization [facility] [place] Address [address] [place] [address] Care Team Providers Care Parts Manager Name Role Phone Ellie Weber Primary Care Provider +1- [phone] Allergies Active Allergy Reactions Criticality Noted Date [...] mouth daily 90 tablet 1 4 Active cyclobenzaprine (FLEXERIL) 10 mg tabletIndicatio ns:Acute midline low back pain without sciatica Take 1 tablet (10 mg total) by mouth 3 (three) times a day as needed for muscle spasms 20 tablet 5 12/12/19 25 Active methylPREDNISol one (MEDROL DOSEPACK) 4 mg DosepackIndicat ions:Acute midline low back pain without sciatica Take as directed on package. 21 tablet 5 10/19/19 25 Active Problems Problem Noted Date Diagnosed Date Chronic midline low back pain without sciatica 0 11/06/2024 Assessment & Plan (11/06/2024 1:03 AM CDT): Patient complains of back pain. He describes what sounds like a strain to the area. He has not had an impact fall so suspect x-rays are not necessary. Recommend continue with anti-inflammatory. Advised he can complete the Medrol Dosepak that he has at home. Strongly recommended physical therapy as exercise is what helps him maintain. He very much wants to see pain management. Encouraged him to consider completing physical therapy and if we do not see improvement would be glad to make the referral. He is in agreement with the plan Flexural eczema 03/31/2024 Assessment & Plan (04/11/2024 12:36 PM CDT): Patient saw a supervisor welding equipment repairer and told the rash was eczema. Has responded well to the steroid cream. Caution with sun. Positive depression screening 10/08/2023 Assessment & Plan (10/21/2024 7:45 AM CDT): PHQ 21 Trigger point of neck 02/12/2023 Pain of [...] point. If persists he is to followup. BMI 20.0-20.9, adult 02/20/2021 Assessment & Plan (10/21/2024 7:38 AM CDT): Weight/BMI is in healthy range. Continue healthy lifestyle to maintain. Assessment & Plan (02/20/2021 11:58 AM CDT): Weight/BMI is in healthy range. Continue healthy lifestyle to maintain. Gastroesophageal reflux disease without esophagi tis 09/10/2020 Assessment & Plan (10/29/2020 11:23 AM CDT): Continue PPI Assessment & Plan (09/10/2020 9:45 AM HOGSHEAD FILLER): Discussed GERD at length including anatomy, behavioral changes (raise HOB, meal timings), dietary changes and medication options. Reviewed risks, benefits alternatives, side effects and proper use. Followup if sxs worsen or has hematochezia or hematemeis. Vertigo 08/19/2020 Assessment & Plan (09/10/2020 9:45 AM HOGSHEAD FILLER): Improving with the vestibular therapy Assessment & Plan (08/19/2020 2:12 PM HOGSHEAD FILLER): Patient has sxs consistent with vertigo. Unable to look in his ears as this is a video visit. Recommend meclizine prn for dizziness. Start PT/vestibular therapy as he doesn't want to miss anymore work. Note thru Monday 08/21 provided. If sxs exacerbate, he is to call. Will check CBC/CMP to rule out any metabolic causes. Moderate episode of recurrent major depressive d isorder 01/10/2019 Assessment & Plan (11/06/2024 1:00 AM CDT): Patient's depression screen was positive. He is seeing a counselor who was also concerned about his depression symptoms. He declines any suicidal or homicidal thoughts. Speaks highly of his daughter and future plans. Reviewed with patient his counselor is concerned in that medication could be a good choice. Reviewed medications options including risks benefits alternatives side effects and proper use. He states he does not want to ever go on medicine again because some of the ones he has been on he has not like the side effects. Discussed BuSpar to help with anxiety and he also declines. Discussed going to the [facility] walk-in clinic to be evaluated and discuss alternative medications and he also declines. Strongly encouraged him to continue with his counselor and may follow up at any time if needs assistance. Provided a handout with names of counselors in the area Assessment & Plan (04/11/2024 12:35 PM CDT): [...] He has a psychiatry appointment tomorrow in [facility]. He is frustrated because he [...] hours because these visits are located in [facility] and [place], [place]. Advised he could increase the BuSpar [...] assistance. Provided name and contact information at [facility] further same-day behavioral/mental health clinic as this is always available for evaluation as a walk in. He was thankful for the information will contact if he needs more assistance Assessment & Plan (05/18/2023 1:28 PM HOGSHEAD FILLER): Patient has discontinued all his mental health [...] tid Assessment & Plan (09/10/2020 9:45 AM HOGSHEAD FILLER): See anxiety Assessment & Plan (01/10/2019 10:54 [...] tid Assessment & Plan (09/10/2020 9:45 AM HOGSHEAD FILLER): Start buspar 7.5tid Reviewed risks, benefit, alternatives, side effects and proper use. Assessment & Plan (08/19/2020 2:10 PM HOGSHEAD FILLER): Discussed medication for anxiety. Declines at this [...] Problem Noted Date Diagnosed Date Resolved Date BMI 22.0-22.9, adult 03/31/202411/06/ 025 Assessment & Plan (03/31/2024 10:46 AM CDT): Weight/BMI is in healthy range. Continue healthy lifestyle to maintain. Acute swimmer's ear of both sides 11/01/2023 [...] lifestyle to maintain. BMI 20.0-20.9, adult 05/06/2023 023 Assessment & [...] 03/31/2024 Assessment & Plan (05/18/2023 1:28 PM HOGSHEAD FILLER): Neck pain seems to be continuing to [...] 023 Assessment & Plan (09/18/2022 3:28 PM HOGSHEAD FILLER): Weight/BMI is in healthy range. Continue healthy lifestyle. BMI 21.0-21.9, adult 10/15/2021 023 Assessment & Plan (10/15/2021 1:35 PM CDT): Weight/BMI is in healthy range. Continue healthy lifestyle to maintain. Need for Tdap vaccination 02/24/2021 Assessment & Plan (02/24/2021 11:35 PM CDT): Updated in office Penile lesion 08/19/2020 03/31/2024 Assessment & Plan (09/17/2020 7:34 PM HOGSHEAD FILLER): Already on Valtrex. Will try a little lotrisone to the area as may be a yeast component. If persists, will need an appointment for exam. May consider HSV antibodies. Denies STD/he is not high risk. Assessment & Plan (08/19/2020 2:09 PM HOGSHEAD FILLER): Check HSV IGg and IGM for TypeI and Type II. (HERPES SELECT) Continue valtrex. BMI 20.0-20.9, adult 10/21/2019/04/14 021 Assessment & Plan (09/10/2020 9:45 AM HOGSHEAD FILLER): Weight/BMI is in healthy range. Continue healthy lifestyle to maintain. Conjunctivitis 10/21/2019 03/31/2024 Assessment & Plan (10/21/2019 11:34 AM CDT): Conjunctivitis vs abrasion. Will treat with antibiotic drops. 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 Call if sxs worsen or don't resolve. 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 Assessment & Plan (10/15/2021 2:06 PM CDT): Continue Valtrex 500 mg 1 daily Has not had an outbreak in a long time Assessment & Plan (09/10/2020 9:45 AM HOGSHEAD FILLER): Increase to valtrex 1gm daily Possible exposure to STD 01/30/2016 Dysuria 01/30/2016 04/11/2024 Chicken pox 02/06/2009 08/19/2020 Overview (06/01/2018): Overview: 1998 Chicken pox 02/06/2009 03/31/2024 Overview (06/03/2022): 1998 Encounters Date Type Department Care Team Description 10/25/2024 Orders Only [address] [place] [phone] Ellie Weber PA Chronic midline low back pain without sciatica (Primary Dx) 10/25/2024 Orders Only [address] [place] [address] Ellie Weber PA Chronic midline low back pain without sciatica (Primary Dx) 10/21/2024 7:30 AM CDT Office Visit [address] [place] [phone] Ellie Weber PA Chronic midline low back pain without sciatica (Primary Dx); Moderate episode of recurrent major depressive disorder (HCC); BMI 20.0-20.9, adult 10/21/[address] [place] [phone] Ellie Weber PA Recommendation Request 10/15/[address] [place] [phone] Ellie Weber PA 10/12/2024 8:00 AM CDT Office Visit [facility] at [address] [address] Yadira Be NP Acute midline low back pain without sciatica (Primary Dx) 10/11/2024 Nurse Triage [address] [place] [phone] Ellie Weber PA 09/28/[address] [place] [phone] Ellie Weber PA Medical Question/Miscellaneous 08/25/[address] [place] [phone] Ellie Weber PA 08/24/[address] [place] [phone] Ellie Weber PA 08/24/2024 Nurse Triage [address] [place] [phone] Ellie Weber PA from Last 3 Months Immunizations Immunization Administration Dates Next Due DTP / HiB 07/13/1996 DTaP 04/11/1998, 7,07/13/1996,10/25,03/08/1994 Hep A, Pediatric 02/06/2009,02/08/2008 Hep B, Adolescent or Pediatric 07/13/1996,1993,1993 Hib (PRP-D) 07/13/1996,10/25/1994,03/08/1994 Influenza, Unspecified 07/14/2024(Deferr ed: Patient Refused),07/14/2023(Deferred: Patient Refused),05/06/2023(Deferred: Patient Refused),07/14/2022(Deferred: [...] on file Legal Sex Male 12:13 PM HOGSHEAD FILLER Gender Identity Not on file Sexual Orientation Not on file Obstetrics History Last Filed Vital Signs Vital Sign Reading Time Taken Comments Blood Pressure 110/76 10/21/2024 7:37 AM CDT Pulse 73 10/21/2024 7:37 AM CDT Temperature 36.7 C (98.1 F) 10/21/2024 7:37 AM CDT Respiratory Rate 16 10/12/2024 8:06 AM CDT Oxygen Saturation 95% 10/21/2024 7:37 AM CDT Inhaled Oxygen Concentration - - Weight 67.1 kg (148 lb) 10/21/2024 7:37 AM CDT Height 180.3 cm (5' 11 ) 10/21/2024 7:37 AM CDT Body Mass Index 20.64 10/21/2024 7:37 AM CDT Plan of Treatment Health Maintenance Due Date Last Done Comments Hepatitis C Screening 1995 Influenza Vaccine (Season Ended) 2025 Regular Well Visit/Exam 18-64 03/31/2025 03/31/2024, 10/31/2022, 10/15/2021 Depression Screening 10/21/2025 10/21/2024, 10/21/2024, 03/31/2024, Additional history exists DTaP/Tdap/Td Vaccine (8 - Td or Tdap) 02/20/2031 02/20/2021, 02/09/2007, 04/11/1998, Additional history exists Hepatitis B Screening Completed 07/13/1996 , 1993, 1993 HPV Vaccines Aged Out No longer eligi ble based on patient's age to complete this topic Pneumococcal vaccine <65 Aged Out No longer eligible based on patient's age to complete this topic [place] Care Teams Parts Manager Relationship Specialty Start Date End Date Ellie Weber PA [address] [place] [address] PCP - General Internal Medicine 12/11/18
--- OUTSIDE RECORDS SUMMARY | 2024-11-17 00:44 | XMS_ITS | Referral Summary ---
Author Organization [facility] Address [address] [place] [address] Care Team Providers Care Regional Facilities Manager Name Role Phone Ellie Weber Primary Care Provider +1- [phone] Encounters Date Type Department Care Team Description 10/25/2024 Orders Only [address] [place] [phone] Ellie Weber PA Chronic midline low back pain without sciatica (Primary Dx) 10/25/2024 Orders Only [address] [place] [phone] Ellie Weber PA Chronic midline low back pain without sciatica (Primary Dx) 10/21/[address] [place] [phone] Ellie Weber PA Recommendation Request 10/21/2024 7:30 AM CDT Office Visit [address] [place] [phone] Ellie Weber PA Chronic midline low back pain without sciatica (Primary Dx); Moderate episode of recurrent major depressive disorder (HCC); BMI 20.0-20.9, adult 10/15/[address] [place] [phone] Ellie Weber PA 10/12/2024 8:00 AM CDT Office Visit [facility] at [address] [phone] Yadira Be NP Acute midline low back pain without sciatica (Primary Dx) 10/11/2024 Nurse Triage [address] [place] [phone] Ellie Weber PA 09/28/[address] [place] [phone] Ellie Weber PA Medical Question/Miscellaneous 08/25/[address] [place] [phone] Ellie Weber PA 08/24/[address] [place] [phone] Ellie Weber PA 08/24/2024 Nurse Triage [address] [place] [phone] Ellie Weber PA from Last 3 [...] (04/11/2024 12:36 PM CDT): Patient saw a host and told the rash was eczema. Has [...] PPI Assessment & Plan (09/10/2020 9:45 AM MANAGER UTILIZATION REVIEW): Discussed GERD at length including anatomy, behavioral changes (raise HOB, meal timings), dietary changes and medication options. Reviewed risks, benefits alternatives, side effects and proper use. Followup if sxs worsen or has hematochezia or hematemeis. Vertigo 08/19/2020 Assessment & Plan (09/10/2020 9:45 AM MANAGER UTILIZATION REVIEW): Improving with the vestibular therapy Assessment & Plan (08/19/2020 2:12 PM MANAGER UTILIZATION REVIEW): Patient has sxs consistent with vertigo. Unable [...] he also declines. Discussed going to the [facility] walk-in clinic to be evaluated and discuss [...] He has a psychiatry appointment tomorrow in [facility]. He is frustrated because [...] visits are located in [facility] and [place], [place]. Advised he could increase the BuSpar [...] assistance. Provided name and contact information at [facility] further same-day behavioral/mental health clinic as this is always available for evaluation as a walk in. He was thankful for the information will contact if he needs more assistance Assessment & Plan (05/18/2023 1:28 PM MANAGER UTILIZATION REVIEW): Patient has discontinued all his mental health [...] tid Assessment & Plan (09/10/2020 9:45 AM MANAGER UTILIZATION REVIEW): See anxiety Assessment & Plan (01/10/2019 10:54 [...] tid Assessment & Plan (09/10/2020 9:45 AM MANAGER UTILIZATION REVIEW): Start buspar 7.5tid Reviewed risks, benefit, alternatives, side effects and proper use. Assessment & Plan (08/19/2020 2:10 PM MANAGER UTILIZATION REVIEW): Discussed medication for anxiety. Declines at this [...] Diagnosed Date Resolved Date BMI 22.0-22.9, adult 03/31/2024 025 Assessment & Plan (03/31/2024 10:46 AM [...] 03/31/2024 Assessment & Plan (05/18/2023 1:28 PM MANAGER UTILIZATION REVIEW): Neck pain seems to be continuing to [...] 023 Assessment & Plan (09/18/2022 3:28 PM MANAGER UTILIZATION REVIEW): Weight/BMI is in healthy range. Continue healthy lifestyle. BMI 21.0-21.9, adult 10/15/2021 023 Assessment & Plan (10/15/2021 1:35 PM CDT): Weight/BMI is in healthy range. Continue healthy lifestyle to maintain. Need for Tdap vaccination 02/24/2021 Assessment & Plan (02/24/2021 11:35 PM CDT): Updated in office Penile lesion 08/19/2020 03/31/2024 Assessment & Plan (09/17/2020 7:34 PM MANAGER UTILIZATION REVIEW): Already on Valtrex. Will try a little lotrisone to the area as may be a yeast component. If persists, will need an appointment for exam. May consider HSV antibodies. Denies STD/he is not high risk. Assessment & Plan (08/19/2020 2:09 PM MANAGER UTILIZATION REVIEW): Check HSV IGg and IGM for TypeI and Type II. (HERPES SELECT) Continue valtrex. BMI 20.0-20.9, adult 10/21/2019 021 Assessment & Plan (09/10/2020 9:45 AM MANAGER UTILIZATION REVIEW): Weight/BMI is in healthy range. Continue healthy lifestyle to maintain. Conjunctivitis 10/21/2019 03/31/2024 Assessment & Plan (10/21/2019 11:34 AM CDT): Conjunctivitis vs abrasion. Will treat with antibiotic drops. 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 Call if sxs worsen or don't resolve. 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 Assessment & Plan (10/15/2021 2:06 PM CDT): Continue Valtrex 500 mg 1 daily Has not had an outbreak in a long time Assessment & Plan (09/10/2020 9:45 AM MANAGER UTILIZATION REVIEW): Increase to valtrex 1gm daily Possible exposure to STD 01/30/2016 Dysuria 01/30/2016 04/11/2024 Chicken pox 02/06/2009 08/19/2020 Overview (06/01/2018): Overview: 1998 Chicken pox 02/06/2009 03/31/2024 Overview (06/03/2022): 1999 Immunizations Immunization Administration Dates Next Due DTP [...] on file Legal Sex Male 12:13 PM MANAGER UTILIZATION REVIEW Gender Identity Not on file Sexual Orientation [...] 10/21/2024 7:37 AM CDT Plan of Treatment Not on file Insurance [employer] [place] [employer] [facility] Care Teams Regional Facilities Manager Relationship Specialty Start Date End Date Ellie Weber PA [address] [facility] [address] [place] [address] PCP - General Internal Medicine 12/11/18
--- OUTSIDE RECORDS SUMMARY | 2024-11-17 00:44 | XMS_ITS | Encounter Summary ---
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
[2024-11-17 01:20] VITALS: BP 111/60; O2SAT 98
--- OUTSIDE RECORDS SUMMARY | 2024-11-17 01:25 | XMS_ITS | Encounter Summary ---
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
--- OUTSIDE RECORDS SUMMARY | 2024-11-17 01:25 | XMS_ITS | Clinical Summary ---
Author Organization [facility] Address [address] [place] [address] Care Team Providers Care Nitroglycerin Nitrator Operator Batch Name Role Phone Ellie Weber Primary Care Provider +1- [phone] Allergies Active Allergy Reactions Criticality Noted Date [...] (04/11/2024 12:36 PM CDT): Patient saw a battery engineer and told the rash was eczema. Has [...] PPI Assessment & Plan (09/10/2020 9:45 AM COLOR SPRAYER): Discussed GERD at length including anatomy, behavioral changes (raise HOB, meal timings), dietary changes and medication options. Reviewed risks, benefits alternatives, side effects and proper use. Followup if sxs worsen or has hematochezia or hematemeis. Vertigo 08/19/2020 Assessment & Plan (09/10/2020 9:45 AM COLOR SPRAYER): Improving with the vestibular therapy Assessment & Plan (08/19/2020 2:12 PM COLOR SPRAYER): Patient has sxs consistent with vertigo. Unable [...] has a psychiatry appointment tomorrow in [facility]. He is frustrated because he feels like [...] hours because these visits are located in [facility], [place] and [place], [place]. Advised he could increase the BuSpar [...] assistance. Provided name and contact information at [facility] further same-day behavioral/mental health clinic as this is always available for evaluation as a walk in. He was thankful for the information will contact if he needs more assistance Assessment & Plan (05/18/2023 1:28 PM COLOR SPRAYER): Patient has discontinued all his mental health [...] tid Assessment & Plan (09/10/2020 9:45 AM COLOR SPRAYER): See anxiety Assessment & Plan (01/10/2019 10:54 [...] tid Assessment & Plan (09/10/2020 9:45 AM COLOR SPRAYER): Start buspar 7.5tid Reviewed risks, benefit, alternatives, side effects and proper use. Assessment & Plan (08/19/2020 2:10 PM COLOR SPRAYER): Discussed medication for anxiety. Declines at this [...] 03/31/2024 Assessment & Plan (05/18/2023 1:28 PM COLOR SPRAYER): Neck pain seems to be continuing to [...] 023 Assessment & Plan (09/18/2022 3:28 PM COLOR SPRAYER): Weight/BMI is in healthy range. Continue healthy lifestyle. BMI 21.0-21.9, adult 10/15/2021 023 Assessment & Plan (10/15/2021 1:35 PM CDT): Weight/BMI is in healthy range. Continue healthy lifestyle to maintain. Need for Tdap vaccination 02/24/2021 Assessment & Plan (02/24/2021 11:35 PM CDT): Updated in office Penile lesion 08/19/2020 03/31/2024 Assessment & Plan (09/17/2020 7:34 PM COLOR SPRAYER): Already on Valtrex. Will try a little lotrisone to the area as may be a yeast component. If persists, will need an appointment for exam. May consider HSV antibodies. Denies STD/he is not high risk. Assessment & Plan (08/19/2020 2:09 PM COLOR SPRAYER): Check HSV IGg and IGM for TypeI and Type II. (HERPES SELECT) Continue valtrex. BMI 20.0-20.9, adult 10/21/2019/04/14 021 Assessment & Plan (09/10/2020 9:45 AM COLOR SPRAYER): Weight/BMI is in healthy range. Continue healthy lifestyle to maintain. Conjunctivitis 10/21/2019 03/31/2024 Assessment & Plan (10/21/2019 11:34 AM CDT): Conjunctivitis vs abrasion. Will treat with antibiotic drops. 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 Call if sxs worsen or don't resolve. 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 Assessment & Plan (10/15/2021 2:06 PM CDT): Continue Valtrex 500 mg 1 daily Has not had an outbreak in a long time Assessment & Plan (09/10/2020 9:45 AM COLOR SPRAYER): Increase to valtrex 1gm daily Possible exposure to STD 01/30/2016 Dysuria 01/30/2016 04/11/2024 Chicken pox 02/06/2009 08/19/2020 Overview (06/01/2018): Overview: 1998 Chicken pox 02/06/2009 03/31/2024 Overview (06/03/2022): 1998 Encounters Date Type Department Care Team Description 10/25/2024 Orders Only [address] [place] [address] Ellie Weber PA Chronic midline low back pain without sciatica (Primary Dx) 10/25/2024 Orders Only [address] [place] [address] Ellie Weber PA Chronic midline low back pain without sciatica (Primary Dx) 10/21/2024 7:30 AM CDT Office Visit [address] [place] [address] Ellie Weber PA Chronic midline low back pain without sciatica (Primary Dx); Moderate episode of recurrent major depressive disorder (HCC); BMI 20.0-20.9, adult 10/21/[address] [place] [address] Ellie Weber PA Recommendation Request 10/15/[address] [place] [address] Ellie Weber PA 10/12/2024 8:00 AM CDT Office Visit [facility] Care at [address] [address] Yadira Be NP Acute midline low back pain without sciatica (Primary Dx) 10/11/2024 Nurse Triage [address] [place] [address] Ellie Weber PA 09/28/[address] [place] [address] Ellie Weber PA Medical Question/Miscellaneous 08/25/[address] [place] [address] Ellie Weber PA 08/24/[address] [place] [phone] Ellie Weber PA 08/24/2024 Nurse Triage [address] [place] [phone] Ellie Weber PA from Last 3 [...] on file Legal Sex Male 12:13 PM COLOR SPRAYER Gender Identity Not on file Sexual Orientation [...] to complete this topic [place] Care Teams Nitroglycerin Nitrator Operator Batch Relationship Specialty Start Date End Date Ellie Weber PA [address] [place] [address] PCP - General Internal Medicine 12/11/18
--- OUTSIDE RECORDS SUMMARY | 2024-11-17 01:25 | XMS_ITS | Referral Summary ---
Author Organization [facility] Address [address] [place] [address] Care Team Providers Care Technical Services Assistant Name Role Phone Ellie Weber Primary Care Provider +1- [phone] Encounters Date Type Department Care Team Description 10/25/2024 Orders Only [address] [place] [address] Ellie Weber PA Chronic midline low back pain without sciatica (Primary Dx) 10/25/2024 Orders Only [address] [place] [address] Ellie Weber PA Chronic midline low back pain without sciatica (Primary Dx) 10/21/[address] [place] [address] Ellie Weber PA Recommendation Request 10/21/2024 7:30 AM CDT Office Visit [address] [place] [address] Ellie Weber PA Chronic midline low back pain without sciatica (Primary Dx); Moderate episode of recurrent major depressive disorder (HCC); BMI 20.0-20.9, adult 10/15/[address] [place] [address] Ellie Weber PA 10/12/2024 8:00 AM CDT Office Visit [facility] at [address] [address] Yadira Be NP Acute midline low back pain without sciatica (Primary Dx) 10/11/2024 Nurse Triage [address] [place] [address] Ellie Weber PA 09/28/[address] [place] [address] Ellie Weber PA Medical Question/Miscellaneous 08/25/[address] [place] [address] Ellie Weber PA 08/24/[address] [place] [address] Ellie Weber PA 08/24/2024 Nurse Triage [address] [place] [phone] Ellie Weber PA from Last 3 [...] (04/11/2024 12:36 PM CDT): Patient saw a health technician and told the rash was eczema. [...] PPI Assessment & Plan (09/10/2020 9:45 AM SWINE EXTENSION FIELD SPECIALIST): Discussed GERD at length including anatomy, behavioral changes (raise HOB, meal timings), dietary changes and medication options. Reviewed risks, benefits alternatives, side effects and proper use. Followup if sxs worsen or has hematochezia or hematemeis. Vertigo 08/19/2020 Assessment & Plan (09/10/2020 9:45 AM SWINE EXTENSION FIELD SPECIALIST): Improving with the vestibular therapy Assessment & Plan (08/19/2020 2:12 PM SWINE EXTENSION FIELD SPECIALIST): Patient has sxs consistent with vertigo. Unable [...] he also declines. Discussed going to the [facility] walk-in clinic to be evaluated and discuss [...] He has a psychiatry appointment tomorrow in [facility]. He is frustrated because he feels like [...] hours because these visits are located in [facility] and [place], [place]. Advised he could increase the BuSpar [...] assistance. Provided name and contact information at [facility] further same-day behavioral/mental health clinic as this is always available for evaluation as a walk in. He was thankful for the information will contact if he needs more assistance Assessment & Plan (05/18/2023 1:28 PM SWINE EXTENSION FIELD SPECIALIST): Patient has discontinued all his mental health [...] tid Assessment & Plan (09/10/2020 9:45 AM SWINE EXTENSION FIELD SPECIALIST): See anxiety Assessment & Plan (01/10/2019 10:54 [...] tid Assessment & Plan (09/10/2020 9:45 AM SWINE EXTENSION FIELD SPECIALIST): Start buspar 7.5tid Reviewed risks, benefit, alternatives, side effects and proper use. Assessment & Plan (08/19/2020 2:10 PM SWINE EXTENSION FIELD SPECIALIST): Discussed medication for anxiety. Declines at this [...] 03/31/2024 Assessment & Plan (05/18/2023 1:28 PM SWINE EXTENSION FIELD SPECIALIST): Neck pain seems to be continuing to [...] 023 Assessment & Plan (09/18/2022 3:28 PM SWINE EXTENSION FIELD SPECIALIST): Weight/BMI is in healthy range. Continue healthy lifestyle. BMI 21.0-21.9, adult 10/15/2021 023 Assessment & Plan (10/15/2021 1:35 PM CDT): Weight/BMI is in healthy range. Continue healthy lifestyle to maintain. Need for Tdap vaccination 02/24/2021 Assessment & Plan (02/24/2021 11:35 PM CDT): Updated in office Penile lesion 08/19/2020 03/31/2024 Assessment & Plan (09/17/2020 7:34 PM SWINE EXTENSION FIELD SPECIALIST): Already on Valtrex. Will try a little lotrisone to the area as may be a yeast component. If persists, will need an appointment for exam. May consider HSV antibodies. Denies STD/he is not high risk. Assessment & Plan (08/19/2020 2:09 PM SWINE EXTENSION FIELD SPECIALIST): Check HSV IGg and IGM for TypeI and Type II. (HERPES SELECT) Continue valtrex. BMI 20.0-20.9, adult 10/21/2019 021 Assessment & Plan (09/10/2020 9:45 AM SWINE EXTENSION FIELD SPECIALIST): Weight/BMI is in healthy range. Continue healthy lifestyle to maintain. Conjunctivitis 10/21/2019 03/31/2024 Assessment & Plan (10/21/2019 11:34 AM CDT): Conjunctivitis vs abrasion. Will treat with antibiotic drops. 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 Call if sxs worsen or don't resolve. 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 Assessment & Plan (10/15/2021 2:06 PM CDT): Continue Valtrex 500 mg 1 daily Has not had an outbreak in a long time Assessment & Plan (09/10/2020 9:45 AM SWINE EXTENSION FIELD SPECIALIST): Increase to valtrex 1gm daily Possible exposure [...] on file Legal Sex Male 12:13 PM SWINE EXTENSION FIELD SPECIALIST Gender Identity Not on file Sexual Orientation [...] Plan of Treatment Not on file Insurance [employer] [place] [employer] [facility] Care Teams Technical Services Assistant Relationship Specialty Start Date End Date Ellie Weber PA [address] [facility] [address] [address] [place] [address] PCP - General Internal Medicine 12/11/18
--- OUTSIDE RECORDS SUMMARY | 2024-11-17 01:25 | XMS_ITS | Encounter Summary ---
Author Organization [facility] Healthcare Address [address] [place] [address] Care Team Providers Care Door Liner Name Role Phone Ellie Weber Primary Care Provider +1- [phone] Reason for Visit * Reason Onset Date Comments Groin Pain 08/17/2024 Encounter Details Date Type Department Care Team (Late st Contact Info) Description 08/24/2024 Nurse Triage [facility] Medical Group Family Medicine [address] [place] [address] Ellie Weber PA [address] [place] [address] Social History Tobacco Use Types [...] on file Legal Sex Male 12:13 PM TEACHER HOME THERAPY Gender Identity Not on file Sexual Orientation Not on file documented as of this encounter Miscellaneous Notes * Telephone Encounter - Zita Ojeda MA - 08/25/2024 9:29 AM CST Patient scheduled with Dr. Celestine Blake with [facility] at their [place] office. Patient informed of appointment and that his office will be sending information/ new patient paperwork today. HER [facility]ER[facility] * Telephone Encounter - Zita Ojeda MA - 08/24/2024 3:34 PM CST Called patient per provider and explained that the next step would be getting him into urology. [place] Patient will be advised when referral is complete. [facility] * Telephone Encounter - Lexi Choi RN - 08/24/2024 9:03 AM CST Reason for Disposition Patient wants to be seen Protocols used: Scrotum [id number] Pt is a 28 y/o male calling [...] seen. No availability. Please contact pt at [phone]. Care advice given including Tylenol/Ibuprofen as directed and ice/heat as directed. Pt verbalized understanding and will call with worsening sx's. [facility]ER[facility] * Telephone Encounter - Lexi Choi RN - 08/24/2024 8:57 AM CST Regarding: Severe groin pain & in the back of the right leg & going down the leg ----- Message from Marii Becker sent at 08/24/2024 8:47 AM TEACHER HOME THERAPY ----- Symptom Based Call Chief Complaint(s): Severe [...] Comments: Did go to the ED at [facility] on 08/20/24 but did not really determineanything and now the leg pain in severe and the groin pain is still present. Does message need to be routed? Yes-Action Needed [facility]ER[facility] documented in this encounter Plan of Treatment Not on file documented as of this encounter Visit Diagnoses Not on filedocumented in this encounter Care Teams Door Liner Relationship Specialty Start Date End Date Ellie Weber PA [address] [place] [address] PCP - General Internal Medicine 12/11/18 documented as of this encounter
--- OUTSIDE RECORDS SUMMARY | 2024-11-17 01:25 | XMS_ITS | Encounter Summary ---
Author Organization [facility] Healthcare Address [address] [place] [address] Care Team Providers Care Hospital Unit Clerk Name Role Phone Ellie Weber Primary Care Provider +1- [phone] Reason for Visit * Reason Onset Date Comments Recommendation Request 10/21/2024 Encounter Details Date Type Department Care Team (Late st Contact Info) Description 10/21/2024 Telephone [facility] Medical Group Family Medicine [address] [place] [address] Ellie Weber PA [address] [place] [address] Recommendation Request Social History Tobacco [...] on file Legal Sex Male 12:13 PM FUNDRAISER Gender Identity Not on file Sexual Orientation [...] PM CDT Ok to refer him to [facility] in [place] -- Dx: neck and back pain * [...] refer him to PM doctor in the [facility] area, to get steroid injections for his back & neck. Patient would like a call back with the new referral info. Does message need to be routed? Yes-Action Needed documented in this encounter Plan of Treatment Not on file documented as of this encounter Visit Diagnoses Not on filedocumented in this encounter Care Teams Hospital Unit Clerk Relationship Specialty Start Date End Date Ellie Weber PA [address] [facility] [address] [place] [address] PCP - General Internal Medicine 12/11/18 documented as of this encounter
--- OUTSIDE RECORDS SUMMARY | 2024-11-17 01:25 | XMS_ITS | Continuity of Care Document ---
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 . Referring Provider: Ellie Weber, [address] [facility] Suite [facility], [place], [address]. tel:[phone] [facility] [facility] [address], [place], [place], [address], [place] tel:[phone] [place] No Information Garo Moran. [address] [facility], [address], [place], [address], [place]. tel:[phone] Referring Provider: Ellie Weber, [address] [place] [address] Road [address], [place], [address]. tel:[phone] [place] [address] [facility], [place], [place], [address], [place] tel:[phone] [place] No Information Garo Moran. [address] [facility], [address], [place], [address], [place]. tel:[phone] Referring Provider: Ellie Weber, [address] [place] [address] Road [address], [place], [address]. tel:[phone] [place] [address] [facility], [place], [place], [address], [place] tel:[phone] [place] No Information Modglin Jimi. . Referring Provider: Ellie Weber, [address] [place] [address] Road [address], [place], [address]. tel:[phone] [facility] [address] [facility], [place], [place], [address], [place] tel:[phone] [place] No Information Modglin Jimi. . Referring Provider: Ellie Weber, [address] [place] [address] Road [address], [place], [address]. tel:[phone] [place] [address] [address], [place], [address], [place] tel:[phone] [place] No Information Modglin Jimi. . Referring Provider: Ellie Weber, [address] [place] [address] Road [address], [place], [address]. tel:[phone] [facility], [place], [place], [address], [place] tel:[phone] [place] No Information Garo Moran. [address] [facility], [address], [place], [place], [facility], [place]. tel:[phone] Referring Provider: Ellie Weber, [facility], [place], [address]. tel:[phone] [facility], [place], [place], [address], [place] tel:[phone] [place] No Information Roman Weber. . Referring Provider: Ellie Weber, [address] [place] [address] Road [address], [place], [address]. tel:[phone] [facility], [place], [place], [address], [place] tel:[phone] [place] No Information Roman Weber. . Referring Provider: Ellie Weber, [address] [place] [address] Road [address], [place], [address]. tel:[phone] [facility], [place], [place], [address], [place] tel:[phone] [place] No Information Wagner Mitchell. . Referring Provider: Ellie Weber, [address] [place] [address] Road [address], [place], [address]. tel:[phone] [facility], [place], [address], [place] tel:[phone] [place] No Information Roman Weber. . Referring Provider: Ellie Weber, [address], [place], [address]. tel:[phone] [facility], [place], [place], [address], [place] tel:[phone] [place] No Information Roman Weber. . Referring Provider: Ellie Weber, [facility] [facility] [address], [place], [address]. tel:[phone] [facility], [place], [place], [address], [place] tel:[phone] [place] No Information Wagner Mitchell. . Referring Provider: Ellie Weber, [address] [place] [address] Road [address], [place], [address]. tel:[phone] [facility] [address] [facility], [place], [place], [address], tel:[phone] [place] No Information Wagner Mitchell. . Referring Provider: Ellie Weber [address] [place] [address] [address], [place], [address]. tel:[phone] [facility] [address] [facility], [place], [address], [place] tel:[phone] [place] No Information Garo Moran. [address] [facility], [address], [place], [facility], . tel:[phone] Referring Provider: Ellie Weber, [address] [place] [address] [address], [place], [address]. tel:[phone] [facility], [place], [place], [address], [place] tel:[phone] [place] No Information Roman Weber. . Referring Provider: Ellie Weber, [facility], [place], [address]. tel:[phone] [facility], [place], [place], [address], [place] tel:[phone] [place] No Information Roman Weber. . Referring Provider: Ellie Hollanddulce maria, [address], [place], [address]. tel:[phone] [address], [place], [place], [address], tel:[phone] [place] No Information Garo Moran. [address] [facility], [address], [place], [place], [facility], [place]. tel:[phone] Referring Provider: Ellie Carteraminah, [address], [place], [address]. tel:[phone] [address], [place], [place], [address], [place] tel:[phone] [place] No Information Garo Moran. [address] [facility], [address], [place], [facility], [place]. tel:[phone] Referring Provider: Ellie Carteraminah, [address], [place], [address]. tel:[phone] [address], [place], [place], [address], [place] tel:[phone] [place] No Information Garo Moran. [address] [facility], [address], [place], [facility], [place]. tel:[phone] Referring Provider: Ellie Carteraminah, [address], [place], [address]. tel:[phone] [address], [place], [place], [address], [place] tel:[phone] [place] No Information Wagner Mitchell. . Referring Provider: Ellie Weber, [address], [place], [address]. tel:[phone] [facility], [address] [facility], [place], [place], [address], [place] tel:[phone] [place] No Information Roman Weber. . Referring Provider: Ellie Weber, [address], [place], [address]. tel:[phone] [facility] [address], [place], [place], [address], tel:[phone] [place] No Information Wagner Mitchell. . Referring Provider: Ellie Weber, [address] [place] [address] Road [address], [place], [address]. tel:[phone] [facility] [address] [facility] [address], [place], [place], [address], tel:[phone] [place] No Information Garo Moran. [address] [place] [address], [address], [place], [facility], . tel:[phone] Referring Provider: Ellie Weber, [facility], [place], [address]. tel:[phone] [facility] [address] [facility] [address], [place], [place], [address], tel:[phone] [place] No Information Garo Moran. [address] [facility], [address], [place], [facility], [place]. tel:[phone] Referring Provider: Ellie Weber, [address], [place], [address]. tel:[phone] [facility] [address], [place], [address], tel:[phone] [place] No Information Garo Moran. [address] [facility], [address], [place], [facility], [place]. tel:[phone] Referring Provider: Ellie Weber, [address], [place], [address]. tel:[phone] [place] [address], [place], [place], [address], tel:[phone] [place] No Information Hisky Gus. . Referring Provider: Ellie Weber, [address], [place], [address]. tel:[phone] [address], [place], [place], [address], [place] tel:[phone] [place] No Information Short Pat. . Referring Provider: Ellie Weber, [address], [place], [address]. tel:[phone] [place] [address] 300, [place], [address], tel:[phone] [place] No Information Short Pat. . Referring Provider: Ellie Weber, [address], [place], [address]. tel:[phone] [address], [place], [place], [address], tel:[phone] [place] No Information Garo Moran. [address] [place] [address], [address], [place], [facility], . tel:[phone] Referring Provider: Ellie Weber, [address], [place], [address]. tel:[phone] [address], [place], [place], [address], tel:[phone] [place] No Information Garo Moran. [address] [place] [address], [address], [place], [facility], [place]. tel:[phone] Referring Provider: Ellie Weber, [address], [place], [address]. tel:[phone] [facility], [address], [place], [place], [address], [place] tel:[phone] [place] No Information Short Pat. . Referring Provider: Ellie Weber, [address], [place], [address]. tel:[phone] [facility] [address], [place], [place], [address], [place] tel:[phone] [place] No Information Garo Moran. [address] [facility], [address], [place], [facility], . tel:[phone] Referring Provider: Ellie Weber, [facility], [place], [address]. tel:[phone] [facility] [address], [place], [place], [address], [place] tel:[phone] [place] No Information Hisgareth Weber. . Referring Provider: Elliemoraima Weber, [address], [place], [address]. tel:[phone] [facility] [address], [place], [address], [place] tel:[phone] [place] No Information Garo Moran. [address] [facility], [address], [place], [facility], . tel:[phone] Referring Provider: Ellie Weber, [address], [place], [address]. tel:[phone] [facility], [place], [address], [place] tel:[phone] [place] No Information Garo Moran. [address] [facility], [address], [place], [address], [place]. tel:[phone] Referring Provider: Ellie Weber, [address], [place], [address]. tel:[phone] [facility], [address], [place], [place], [address], [place] tel:[phone] [place] No Information Garo Moran. [address] [facility], [address], [place], [address], [place]. tel:[phone] Referring Provider: Ellie Weber, [address] [place] [address] Road [address], [place], [address]. tel:[phone] [facility] [address], [place], [place], [address], [place] tel:[phone] [place] No Information Roman Weber. . Referring Provider: Ellie Weber, [facility], [place], [address]. tel:[phone] [facility] [address], [place], [address], [place] tel:[phone] [place] No Information Roman Weber. . Referring Provider: Ellie Weber, [address], [place], [address]. tel:[phone] [facility], [address], [place], [place], [address], [place] tel:[phone] [place] No Information Roge De La Cruz. . Referring Provider: Ellie Weber, [address], [place], [address]. tel:[phone] [facility], [place], [place], [address], [place] tel:[phone] [place] No Information Garo Moran. [address] [facility], [address], [place], [facility], [place]. tel:[phone] Referring Provider: Ellie Weber, [address] [place] [address] Road [address], [place], [address]. tel:[phone], [place], [place], [address], tel:[phone] [place] No Information Garo Moran. [address] [facility], [address], [place], [facility], [place]. tel:[phone] Referring Provider: Ellie Weber, [address] [place] [address] [address], [place], [address]. tel:[phone], [place], [place], [address], tel:[phone] [place] No Information Garo Moran. [address] [facility], [address], [place], [facility], [place]. tel:[phone] Referring Provider: Ellie Weber, [address] [place] [address] [address], [place], [address]. tel:[phone] [address], [place], [place], [address], tel:[phone] [place] No Information Roman Rodas . Referring Provider: Ellie Weber, [address] [place] [address] Road [address], [place], [address]. tel:[phone] [address], [place], [place], [address], tel:[phone] [place] No Information Garo Moran. [address] [facility], [address], [place], [facility], [place]. tel:[phone] Referring Provider: Ellie Weber, [address], [place], [address]. tel:[phone] [facility], [facility] [address], [place], [place], [address], tel:[phone] [place] No Information Garo Moran. [address] [facility], [address], [place], [facility], [place]. tel:[phone] Referring Provider: Ellie Weber, [address], [place], [address]. tel:[phone] [facility] [address] [place], [place] [address], [place], [address], [place] tel:[phone] [place] No Information Garo Moran. [address] [facility], [address], [place], [facility], [place]. tel:[phone] Referring Provider: Ellie Weber, [facility], [place], [address]. tel:[phone] [facility] [address] [facility] [address], [place], [address], [place] tel:[phone] [place] No Information Saad Moran. . Referring Provider: Ellie Weber, [facility], [place], [address]. tel:[phone] [facility], [address], [place], [place], [address], [place] tel:[phone] [place] No Information Short Pat. . Referring Provider: Ellie Weber, [address], [place], [address]. tel:[phone] [facility], [address], [place], [place], [address], tel:[phone] [place] No Information Short Pat. . Referring Provider: Ellie Weber, [address], [place], [address]. tel:[phone] [facility] [address] [facility] [address], [place], [address], [place] tel:[phone] [place] No Information Garo Moran. [address] [facility], [address], [place], [facility], [place]. tel:[phone] Referring Provider: Ellie Weber, [address], [place], [address]. tel:[phone] [facility] [address], [place], [address], [place] tel:[phone] [place] No Information Garo Moran. [address] [place] [address], [address], [place], [facility], [place]. tel:[phone] Referring Provider: Ellie Weber, [address], [place], [address]. tel:[phone] [facility] [address], [place], [address], [place] tel:[phone] [place] No Information Short Pat. . Referring Provider: Ellie Weber, [facility], [place], [address]. tel:[phone] [facility] [address] [facility], [place], [place], [address], [place] tel:[phone] [place] No Information Garo Moran. [address] [place] [address], [address], [place], [facility], . tel:[phone] Referring Provider: Ellie Weber, [address], [place], [address]. tel:[phone] [place] [address], [place], [place], [address], [place] tel:[phone] [place] No Information Roman Weber. . Referring Provider: Ellie Weber, [address], [place], [address]. tel:[phone] [facility] [address] [facility], [place], [place], [address], [place] tel:[phone] [place] No Information Roman Weber. . Referring Provider: Ellie Weber, [address], [place], [address]. tel:[phone] [facility] [facility], [place], [place], [address], tel:[phone] [place] No Information Roman Weber. . [facility] [facility], [place], [place], [address], [place] tel:[phone] [place] No Information Vladrels Paula. . [facility] [address] [facility], [place], [place], [address], [place] tel:[phone] [place] No Information Garo Moran. [address] [place] [address], [address], [place], [facility], [place]. tel:[phone] [facility] [facility], [place], [place], [address], [place] tel:[phone] [place] No Information Garo Moran. [address] [place] [address], [address], [place], [facility], [place]. tel:[phone] [facility] [facility], [place], [place], [address], [place] tel:[phone] [place] No Information Garrels Paula. . [facility], [place], [address], [place] tel:[phone] [place] No Information Roman Weber. . [facility], [place], [place], [address], [place] tel:[phone] [place] No Information Garo Moran. [address] [facility], [address], [place], [address], [place]. tel:[phone] [facility], [place], [place], [address], [place] tel:[phone] [place] No Information Garrels Paula. . [facility], [place], [place], [address], [place] tel:[phone] [place] No Information Garrels Paula. . [facility], [place], [place], [address], [place] tel:[phone] [place] No Information Garrels Paula. . [facility], [place], [place], [address], [place] tel:[phone] [place] No Information Garrels Paula. . [facility], [place], [place], [address], [place] tel:[phone] [place] No Information Roman Gus. . [facility], [place], [place], [address], [place] tel:[phone] [place] No Information Garrels Paula. . [facility], [place], [place], [address], [place] tel:[phone] [place] No Information Abeba Krause. . [facility], [address], tel:[phone] [place] No Information Garo Moran. [address] [place] [address], [address], [place], [facility], . tel:[phone] [facility] [address], [address], [phone] [place] No Information Sonam Moctezuma. [address] [place] [address], . tel:[phone] [facility], [address], [phone] [place] No Information Garo Moran. [address] [place] [address], [facility] [address] [address], . tel:[phone] [facility], [address], [phone] [place] No Information Garrels Paula. . [facility], [address], tel:[phone] [place] No Information Garrels Paula. . [facility], [address], tel:[phone] [place] No Information Garrels Paula. . [facility], [address], tel:[phone] [place] No Information Elias Roe. . Family History Family Member Type Diagnosis Age At Onset No Information Payers Payer name Insurance type Covered constitution party ID Authoriza tion(s) [facility] [id number] [facility] LI 00 Social History Type Description Quantity [...]
--- OUTSIDE RECORDS SUMMARY | 2024-11-17 01:25 | XMS_ITS | Clinical Summary ---
Author Organization [facility] Address [address] [place] [address] Care Team Providers Care Basket Hand Braider Name Role Phone Ellie Weber PA-C Primary Care Provider [phone] Source Comments [facility],non-owned Affiliates and Associated Physician Practices is amultiple site organization consisting of ambulatory clinics and hospital sitesin [place], [place], [place] and [place]. This disclosure is being madepursuant to the Care Everywhere program and may not contain all information available regarding this patient. 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 Gender Identity Not on file Sexual [...] CDT 09/25/2016 Narrative Resulting Agency Comment [facility] [address] [facility] [id number] Martin Ngo MD LAB - SEROLOGY ORDERABLES Final Result [facility] ACCOUNT BILL [address] [place] [address] from Last 3 Months or Most Recently Relevant to Health Maintenance Insurance KARINA ANTHEM PAYOR GENERIC * Guarantor: [employer] Account Type Relation to Patient Date of Phone Billing Address Personal/Family 1995 Roselia DENNIS [address] [place] [address] Care Teams Basket Hand Braider Relationship Specialty Start Date End Date Ellie Weber PAMauriceC [address] [facility] [address] [place] [address] PCP - General Physician Battery Container Finishing Hand 02/07/22
[2024-11-17 01:30] VITALS: BP 114/57; O2SAT 94
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
[2024-11-17 02:29] VITALS: BP 120/65; PULSE 65; RESP 17; TEMP 36.6; O2SAT 98
== END 2024-11-17 02:15 | disposition home or self-care (01) ==
PROVIDERS: Emergency Provider Emergency Medicine; PCP Physician Assistant
DX: G44.309 Post-traumatic headache, unspecified, not intractable (principal); F07.81 Postconcussional syndrome; Z79.899 Other long term (current) drug therapy
CPT/HCPCS: 70450; 99284

== ENCOUNTER 2024-11-22 14:44 | Outpatient (CLI) | payer BC, SELFPAY ==
--- NOTE | ~2024-11-22 | XR_ITS ---
3 VIEWS LUMBAR SPINE Ordering provider: Evon Troncoso, ELASTIC CUTTER-C History: . Other low back pain . Comparison: None. FINDINGS: VERTEBRAL BODIES: No visible fracture or subluxation. DISK SPACES: Normal. SOFT TISSUES: Normal. IMPRESSION: No acute osseous abnormality lumbar spine. Reviewed, dictated and finalized at location A.
--- NOTE | ~2024-11-22 | XR_ITS ---
EXAM: XR thoracic spine 2V DATE: 11/22/2024 15:16 HISTORY: Other low back pain . COMPARISON: None available. FINDINGS: Vertebral body alignment intact. Mild scoliosis. Vertebral body heights preserved. No disc space narrowing. No traumatic malalignment or fracture. Visualized lung parenchyma is clear. IMPRESSION: Mild scoliosis. Reviewed, dictated and finalized at location K. IMPRESSION: Mild scoliosis.
--- NOTE | ~2024-11-22 | XR_ITS ---
EXAM: XR_CERV2-3V_CR DATE: 11/22/2024 15:16 HISTORY: Other low back pain . COMPARISON: None available. FINDINGS: Craniocervical association and atlantoaxial joint are aligned. No prevertebral soft tissue swelling. Vertebral bodies are aligned. Vertebral body heights are maintained. Normal disc spaces. N ormal facets and posterior elements. IMPRESSION: Normal cervical spine radiograph findings. If pain persists, consider MRI of the cervical spine for further evaluation. Reviewed, dictated and finalized at location K. IMPRESSION: Normal cervical spine radiograph findings. If pain persists, consid er MRI of the cervical spine for further evaluation.
== END 2024-11-22 14:45 | disposition home or self-care (01) ==
LOC: MICIMG 14:47
PROVIDERS: PCP Physician Assistant; Visit Provider Nurse Practitioner Family
DX: M41.84 Other forms of scoliosis, thoracic region (principal); M54.59 Other low back pain; M54.2 Cervicalgia
CPT/HCPCS: 72040; 72070; 72100

== ENCOUNTER 2024-12-08 11:20 | Emergency (ER) | payer BC, SELFPAY ==
--- NOTE | ~2024-12-08 | XR_ITS ---
CHEST RADIOGRAPH CLINICAL HISTORY: Covid . COMPARISON: 09/05/2022 TECHNIQUE: Single portable view of the chest. FINDINGS The cardiomediastinal silhouette is unremarkable. The lungs are clear. Visualized osseous structures and soft tissues are unremarkable. IMPRESSION: No focal infiltrate or effusion. Reviewed, dictated and finalized at location A.
--- OUTSIDE RECORDS SUMMARY | 2024-12-08 11:23 | XMS_ITS | Clinical Summary ---
Author Organization [facility] [employer] Address [address] [place] [address] Care Team Providers Care Bridal Stylist Sales Consultant Name Role Phone Ellie Weber PA-C Primary Care Provider [phone] [phone] Source Comments [facility] Affiliates and Associated Physician Practices is amultiple site organization consisting of ambulatory clinics and hospital sitesin [place] and [place]. This disclosure is being madepursuant to the Care Everywhere program and may not contain all information available regarding this patient. Last updated 18.[facility] [employer] Allergies Active Allergy Reactions Criticality Noted Date [...] on file Legal Sex Male 7:41 AM STUDIO HAND Gender Identity Not on file Sexual Orientation [...] 8:44 AM CDT Height 180.3 cm (5' 11) 01/31/2024 8:44 AM CDT Body Mass Index [...] CDT 09/25/2016 Narrative Resulting Agency Comment [facility] [address] [facility] [id number] us Martin Ngo MD LAB - SEROLOGY ORDERABLES Final Result [facility] ACCOUNT BILL [id number] [place] [address] from Last 3 Months or Most Recently Relevant to Health Maintenance Insurance [address] [place], [place] [id number] PAYOR GENERIC * Guarantor: [employer] Account Type Relation to Patient Date of Phone Billing Address Personal/Family 1995 [address] [place] [address] Care Teams Bridal Stylist Sales Consultant Relationship Specialty Start Date End Date Ellie Weber PA-C [address] [address] PCP - General Physician Damage Adjuster 02/07/22
[2024-12-08 11:24] VITALS: BP 118/65; PULSE 70; RESP 16; TEMP 36.4; O2SAT 100
[2024-12-08 11:33] VITALS: O2SAT 99
[2024-12-08 12:19] LABS: Influenza A QL RT-PCR Negative (Negative); Influenza B QL RT-PCR Negative (Negative); RSV RNA, RT-PCR Negative (Negative); SARS-CoV-2 RNA PCR Positive (Negative)
--- OUTSIDE RECORDS SUMMARY | 2024-12-08 12:26 | XMS_ITS | Encounter Summary ---
Author Organization [facility] Healthcare Address [address] [place] [address] Care Team Providers Care Stone And Concrete Washer Name Role Phone Ellie Weber Primary Care Provider [phone]- [phone] Reason for Visit * Reason Onset Date Comments Groin Pain 08/17/2024 Encounter Details Date Type Department Care Team (Late st Contact Info) Description 08/24/2024 Nurse Triage [facility] Medical Group Family Medicine [address] [place] [address] Ellie Weber PA [address] [facility] [address] [place] [address] Social History Tobacco Use Types [...] on file Legal Sex Male 12:13 PM DIGITAL MARKETING OFFICER Gender Identity Not on file Sexual Orientation Not on file documented as of this encounter Functional Status * Audit-C Score Answer Date of Assessment Author 3 10/21/2024 7:38 AM Xena Brown MA * Question Answer Date of Assessment Author Q1: How often do you have a drink containing alcohol? 2-3 times a week 10/21/2024 7:38 AM Margaret Brown M A Q2: How many drinks containing alcohol do you have on a typical day when you are drinking? 1 or 2 10/21/2024 7:38 AM Margaret Brown M A Q3: How often do you have six or more drinks on one occasion? Never 10/21/2024 7:38 AM Margaret Brown M A documented as of this encounter Miscellaneous Notes * Telephone Encounter - Zita Ojeda MA - 08/25/2024 9:29 AM CST Patient scheduled with Dr. Celestine Blake with [facility] at their [place] office. Patient informed of appointment and that his office will be sending information/ new patient paperwork today. TAL MARKETING OFFICER * Telephone Encounter - Zita Ojeda MA - 08/24/2024 3:34 PM CST Called patient per provider and explained that the next step would be getting him into urology. [place] Patient will be advised when referral is complete. TAL MARKETING OFFICER * Telephone Encounter - Lexi Choi RN - 08/24/2024 9:03 AM CST Reason for Disposition Patient wants to be seen Protocols used: Scrotum Rudk-[id number]-PR Pt is a 28 y/o male calling [...] seen. No availability. Please contact pt at [phone]. Care advice given including Tylenol/Ibuprofen as directed and ice/heat as directed. Pt verbalized understanding and will call with worsening sx's. TAL MARKETING OFFICER * Telephone Encounter - Lexi Choi RN - 08/24/2024 8:57 AM CST Regarding: Severe groin pain & in the back of the right leg & going down the leg ----- Message from Marii Becker sent at 08/24/2024 8:47 AM DIGITAL MARKETING OFFICER ----- Symptom Based Call Chief Complaint(s): Severe [...] Comments: Did go to the ED at [facility] on 08/20/24 but did not really determineanything and now the leg pain in severe and the groin pain is still present. Does message need to be routed? Yes-Action Needed TAL MARKETING OFFICER documented in this encounter Plan of Treatment Not on file documented as of this encounter Visit Diagnoses Not on filedocumented in this encounter Care Teams Stone And Concrete Washer Relationship Specialty Start Date End Date Ellie Weber PA [address] [facility] [address] [place] [address] PCP - General Internal Medicine 12/11/18 documented as of this encounter
--- OUTSIDE RECORDS SUMMARY | 2024-12-08 12:26 | XMS_ITS | Encounter Summary ---
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
--- OUTSIDE RECORDS SUMMARY | 2024-12-08 12:26 | XMS_ITS | Referral Summary ---
Author Organization [facility] Address [address] [place] [address] Care Team Providers Care Media Services Director Name Role Phone Ellie Weber Primary Care Provider +1- [phone] Encounters Date Type Department Care Team Description 11/18/2024 Telephone [facility] Medicine [address] [place] [address] Road [address] [place] [address] Ellie Weber PA 10/25/2024 Orders Only [address] [place] [address] Ellie Weber PA Chronic midline low back pain without sciatica (Primary Dx) 10/25/2024 Orders Only [facility] Medicine [address] [place] [address] [address] [place] [address] Ellie Weber PA Chronic midline low back pain without sciatica (Primary Dx) 10/21/2024 Telephone [facility] Medicine [facility] [place] [address] Ellie Weber PA Recommendation Request 10/21/2024 7:30 AM CDT Office Visit [facility] Medicine [address] [place] [address] [address] [place] [address] Ellie Weber PA Chronic midline low back pain without sciatica (Primary Dx); Moderate episode of recurrent major depressive disorder (HCC); BMI 20.0-20.9, adult 10/15/2024 Telephone [facility] [address] [address] [place] [address] Ellie Weber PA 10/12/2024 8:00 AM CDT Office Visit [facility] at [address] [address] Yadira Be NP Acute midline low back pain without sciatica (Primary Dx) 10/11/2024 Nurse Triage [address] [place] [address] Ellie Weber PA 09/28/[address] [place] [address] Ellie Weber PA Medical Question/Miscellaneous from Last 3 Months Allergies Active Allergy [...] (04/11/2024 12:36 PM CDT): Patient saw a aircraft life support fitter and told the rash was eczema. Has [...] PPI Assessment & Plan (09/10/2020 9:45 AM DIE ASSEMBLER): Discussed GERD at length including anatomy, behavioral changes (raise HOB, meal timings), dietary changes and medication options. Reviewed risks, benefits alternatives, side effects and proper use. Followup if sxs worsen or has hematochezia or hematemeis. Vertigo 08/19/2020 Assessment & Plan (09/10/2020 9:45 AM DIE ASSEMBLER): Improving with the vestibular therapy Assessment & Plan (08/19/2020 2:12 PM DIE ASSEMBLER): Patient has sxs consistent with vertigo. Unable [...] he also declines. Discussed going to the [facility] walk-in clinic to be evaluated and discuss [...] He has a psychiatry appointment tomorrow in [facility]. He is frustrated because he [...] hours because these visits are located in [facility] and [place], [place]. Advised he could increase the BuSpar [...] assistance. Provided name and contact information at [facility] further same-day behavioral/mental health clinic as this is always available for evaluation as a walk in. He was thankful for the information will contact if he needs more assistance Assessment & Plan (05/18/2023 1:28 PM DIE ASSEMBLER): Patient has discontinued all his mental health [...] tid Assessment & Plan (09/10/2020 9:45 AM DIE ASSEMBLER): See anxiety Assessment & Plan (01/10/2019 10:54 [...] tid Assessment & Plan (09/10/2020 9:45 AM DIE ASSEMBLER): Start buspar 7.5tid Reviewed risks, benefit, alternatives, side effects and proper use. Assessment & Plan (08/19/2020 2:10 PM DIE ASSEMBLER): Discussed medication for anxiety. Declines at this [...] Date Resolved Date BMI 22.0-22.9, adult 03/31/2024 04/2 025 Assessment & Plan (03/31/2024 10:46 AM [...] 03/31/2024 Assessment & Plan (05/18/2023 1:28 PM DIE ASSEMBLER): Neck pain seems to be continuing to [...] 023 Assessment & Plan (09/18/2022 3:28 PM DIE ASSEMBLER): Weight/BMI is in healthy range. Continue healthy lifestyle. BMI 21.0-21.9, adult 10/15/2021 023 Assessment & Plan (10/15/2021 1:35 PM CDT): Weight/BMI is in healthy range. Continue healthy lifestyle to maintain. Need for Tdap vaccination 02/24/2021 Assessment & Plan (02/24/2021 11:35 PM CDT): Updated in office Penile lesion 08/19/2020 03/31/2024 Assessment & Plan (09/17/2020 7:34 PM DIE ASSEMBLER): Already on Valtrex. Will try a little lotrisone to the area as may be a yeast component. If persists, will need an appointment for exam. May consider HSV antibodies. Denies STD/he is not high risk. Assessment & Plan (08/19/2020 2:09 PM DIE ASSEMBLER): Check HSV IGg and IGM for TypeI and Type II. (HERPES SELECT) Continue valtrex. BMI 20.0-20.9, adult 10/21/2019 021 Assessment & Plan (09/10/2020 9:45 AM DIE ASSEMBLER): Weight/BMI is in healthy range. Continue healthy lifestyle to maintain. Conjunctivitis 10/21/2019 03/31/2024 Assessment & Plan (10/21/2019 11:34 AM CDT): Conjunctivitis vs abrasion. Will treat with antibiotic drops. 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 Call if sxs worsen or don't resolve. 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 Assessment & Plan (10/15/2021 2:06 PM CDT): Continue Valtrex 500 mg 1 daily Has not had an outbreak in a long time Assessment & Plan (09/10/2020 9:45 AM DIE ASSEMBLER): Increase to valtrex 1gm daily Possible exposure [...] on file Legal Sex Male 12:13 PM DIE ASSEMBLER Gender Identity Not on file Sexual Orientation [...] 7:37 AM CDT Height 180.3 cm (5' 11) 10/21/2024 7:37 AM CDT Body Mass Index 20.64 10/21/2024 7:37 AM CDT Plan of Treatment Not on [place] [employer] [place] [place] Care Teams Media Services Director Relationship Specialty Start Date End Date Ellie Weber PA [address] [facility] [address] [place] [address] PCP - General Internal Medicine 12/11/18
--- OUTSIDE RECORDS SUMMARY | 2024-12-08 12:26 | XMS_ITS | Clinical Summary ---
Author Organization [facility] Address [address] [facility] [place] [address] Care Team Providers Care Cardiac Surgeon Name Role Phone Ellie Weber PA-C Primary Care Provider [phone] -[phone] Source Comments [facility] Affiliates and Associated Physician Practices is amultiple site organization consisting of ambulatory clinics and hospital sitesin [place], [place], [place] and [place]. This disclosure is being madepursuant to the Care Everywhere program and may not contain all information available regarding this patient. 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 Male 7:41 AM TRAVELING ACCOUNTANT Gender Identity Not on file Sexual Orientation [...] CDT 09/25/2016 Narrative Resulting Agency Comment [facility] [address] [facility] [id number] us Martin Ngo MD LAB - SEROLOGY ORDERABLES Final Result [facility] ACCOUNT BILL [address] [place] [address] from Last 3 Months or Most Recently Relevant to Health Maintenance Insurance [address] [place], [place] [id number] PAYOR GENERIC * Guarantor: [employer] Account Type Relation to Patient Date of Phone Billing Address Personal/Family 1995 [address] [place] [address] Care Teams Cardiac Surgeon Relationship Specialty Start Date End Date Ellie Weber PA-C [address] [address] PCP - General Physician Scoop Machine Operator 02/07/22
--- OUTSIDE RECORDS SUMMARY | 2024-12-08 12:26 | XMS_ITS | Clinical Summary ---
Author Organization [facility] Address [address] [place] [address] Care Team Providers Care Janitorial Tech Name Role Phone Ellie Weber Primary Care Provider [phone] Allergies Active Allergy Reactions Criticality Noted Date [...] (04/11/2024 12:36 PM CDT): Patient saw a photographic artist and told the rash was eczema. Has [...] PPI Assessment & Plan (09/10/2020 9:45 AM WASTEWATER TREATMENT SUPERVISOR): Discussed GERD at length including anatomy, behavioral changes (raise HOB, meal timings), dietary changes and medication options. Reviewed risks, benefits alternatives, side effects and proper use. Followup if sxs worsen or has hematochezia or hematemeis. Vertigo 08/19/2020 Assessment & Plan (09/10/2020 9:45 AM WASTEWATER TREATMENT SUPERVISOR): Improving with the vestibular therapy Assessment & Plan (08/19/2020 2:12 PM WASTEWATER TREATMENT SUPERVISOR): Patient has sxs consistent with vertigo. Unable [...] he also declines. Discussed going to the [facility] walk-in clinic to be evaluated and discuss [...] He has a psychiatry appointment tomorrow in [facility]. He is frustrated because he feels like [...] hours because these visits are located in [facility] and [place], [place]. Advised he could increase the BuSpar [...] assistance. Provided name and contact information at [facility] further same-day behavioral/mental health clinic as this is always available for evaluation as a walk in. He was thankful for the information will contact if he needs more assistance Assessment & Plan (05/18/2023 1:28 PM WASTEWATER TREATMENT SUPERVISOR): Patient has discontinued all his mental health [...] tid Assessment & Plan (09/10/2020 9:45 AM WASTEWATER TREATMENT SUPERVISOR): See anxiety Assessment & Plan (01/10/2019 10:54 [...] tid Assessment & Plan (09/10/2020 9:45 AM WASTEWATER TREATMENT SUPERVISOR): Start buspar 7.5tid Reviewed risks, benefit, alternatives, side effects and proper use. Assessment & Plan (08/19/2020 2:10 PM WASTEWATER TREATMENT SUPERVISOR): Discussed medication for anxiety. Declines at this [...] 03/31/2024 Assessment & Plan (05/18/2023 1:28 PM WASTEWATER TREATMENT SUPERVISOR): Neck pain seems to be continuing to [...] 023 Assessment & Plan (09/18/2022 3:28 PM WASTEWATER TREATMENT SUPERVISOR): Weight/BMI is in healthy range. Continue healthy lifestyle. BMI 21.0-21.9, adult 10/15/2021 023 Assessment & Plan (10/15/2021 1:35 PM CDT): Weight/BMI is in healthy range. Continue healthy lifestyle to maintain. Need for Tdap vaccination 02/24/2021 Assessment & Plan (02/24/2021 11:35 PM CDT): Updated in office Penile lesion 08/19/2020 03/31/2024 Assessment & Plan (09/17/2020 7:34 PM WASTEWATER TREATMENT SUPERVISOR): Already on Valtrex. Will try a little lotrisone to the area as may be a yeast component. If persists, will need an appointment for exam. May consider HSV antibodies. Denies STD/he is not high risk. Assessment & Plan (08/19/2020 2:09 PM WASTEWATER TREATMENT SUPERVISOR): Check HSV IGg and IGM for TypeI and Type II. (HERPES SELECT) Continue valtrex. BMI 20.0-20.9, adult 10/21/2019 021 Assessment & Plan (09/10/2020 9:45 AM WASTEWATER TREATMENT SUPERVISOR): Weight/BMI is in healthy range. Continue healthy lifestyle to maintain. Conjunctivitis 10/21/2019 03/31/2024 Assessment & Plan (10/21/2019 11:34 AM CDT): Conjunctivitis vs abrasion. Will treat with antibiotic drops. 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 Call if sxs worsen or don't resolve. 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 Assessment & Plan (10/15/2021 2:06 PM CDT): Continue Valtrex 500 mg 1 daily Has not had an outbreak in a long time Assessment & Plan (09/10/2020 9:45 AM WASTEWATER TREATMENT SUPERVISOR): Increase to valtrex 1gm daily Possible exposure to STD 01/30/2016 Dysuria 01/30/2016 04/11/2024 Chicken pox 02/06/2009 08/19/2020 Overview (06/01/2018): Overview: 1998 Chicken pox 02/06/2009 03/31/2024 Overview (06/03/2022): 1998 Encounters Date Type Department Care Team Description 11/18/[address] [place] [address] Ellie Weber PA 10/25/2024 Orders Only [address] [place] [address] Ellie Weber PA Chronic midline low back pain without sciatica (Primary Dx) 10/25/2024 Orders Only [address] [place] [address] Ellie Weber PA Chronic midline low back pain without sciatica (Primary Dx) 10/21/2024 7:30 AM CDT Office Visit [address] [place] [address] Ellie Weber PA Chronic midline low back pain without sciatica (Primary Dx); Moderate episode of recurrent major depressive disorder (HCC); BMI 20.0-20.9, adult 10/21/[address] [place] [address] Ellie Weber PA Recommendation Request 10/15/[address] [place] [address] Ellie Weber PA 10/12/2024 8:00 AM CDT Office Visit [facility] at [address] [address] Yadira Be NP Acute midline low back pain without sciatica (Primary Dx) 10/11/2024 Nurse Triage [address] [place] [address] Ellie Weber PA 09/28/[address] [place] [address] Ellie Weber PA Medical Question/Miscellaneous from Last 3 Months Immunizations Immunization Administration [...] on file Legal Sex Male 12:13 PM WASTEWATER TREATMENT SUPERVISOR Gender Identity Not on file Sexual Orientation [...] patient's age to complete this topic Insurance [facility] [place] [employer] [place] [employer] [place] Care Teams Janitorial Tech Relationship Specialty Start Date End Date Ellie Weber PA [address] [place] [address] [address] [place] [address] PCP - General Internal Medicine 12/11/18
--- NOTE | 2024-12-08 12:33 | ECG_ITS ---
Test Date: 2024-12-08 13:45:01 Measurements Intervals Clarence Rate: 72 P: 70 CA: 157 QRS: 67 QRSD: 116 T: 46 QT: 388 QTc: 426 Interpretive Statements SINUS RHYTHM No previous ECG available for comparison Electronically Signed On 12-09-2024 15:10:22 CDT by Margarito Brock M.D.
[2024-12-08] MEDS: KETOROLAC 15 MG/ML VIAL (*BKC) IV PUSH (13:01)
[2024-12-08] MEDS: SODIUM CHLORIDE 0.9% IV 2,000 ML 999 ML IV CONT (13:01)
[2024-12-08 13:07] LABS: Basophils Percent Auto 0.9 % (0.2-1.2); Eosinophils Percent Auto 0.5 % (0-4.4); Hematocrit 41.9 % (42.0-52.0); Hemoglobin 14.3 g/dL (14.0-18.0); Immature Granulocyte Absolute 0.01 K/mm3 (0.00-0.031); Immature Granulocyte Percent A 0.2 % (0-0.5); Lymphocytes Absolute Auto 0.34 K/mm3 (0.9-3.2); Lymphocytes Percent Auto 7.8 % (18.3-44.2); Mean Corpuscular HGB Conc 34.1 g/dl (32-36); Mean Corpuscular Hemoglobin 30.2 pg (26-34); Mean Corpuscular Volume 88.4 fl (80-100); Mean Platelet Volume 8.1 fl (7.4-10.4); Monocytes Absolute Auto 0.6 K/mm3 (0.1-0.6); Monocytes Percent Auto 13.3 % (2.6-8.5); Neutrophils Absolute Auto 3.4 K/mm3 (1.3-6.7); Neutrophils Percent Auto 77.3 % (45.5-73.1); Platelet Count Result 193 k/mm3 (150-375); Red Blood Count 4.74 M/mm3 (4.6-6.20); Red Cell Distribution Width 12.1 % (11.5-14.5); White Blood Count 4.4 K/mm3 (4.5-10.0)
[2024-12-08 13:21] LABS: Alanine Aminotransferase 48 U/L (6-50); Albumin Level 4.5 g/dL (3.5-5.1); Alkaline Phosphatase 66 U/L (38-126); Anion Gap 4 mmol/L (4-12); Aspartate Amino Transferase 47 U/L (17-59); Bilirubin,Total 0.9 mg/dL (0.2-1.3); Blood Urea Nitrogen 14 mg/dL (9-20); Calcium 9.3 mg/dL (8.4-10.2); Carbon Dioxide 30 mmol/L (22-30); Chloride 102 mmol/L (98-107); Estimated CRCL calculation 124 ml/min; Estimated Glomerular Filt Rate > 60; Glucose 100 mg/dL (65-110); Potassium 3.9 mmol/L (3.4-5.0); Sodium 136 mmol/L (137-145)
--- NOTE | 2024-12-08 13:25 | ED_ITS ---
HPI - General Adult General Chief complaint: Upper Respiratory Infection Stated complaint: Chills, RODRIGUEZ, dizzy, cough, weakness Time Seen by Provider: 12/08/24 12:10 History of Present Illness HPI narrative: This is a 29-year-old male presenting ED with flu-like symptoms. Patient is recently travel to [facility]. His way back he developed body aches, fatigue and weakness. He denies fevers chills nausea vomiting diarrhea chest pain difficulty breathing abdominal pain or diarrhea. He has not been vaccinated against COVID. Related Data Allergies Allergy/AdvReac Type Severity Reaction Status Date / Time meloxicam AdvReac Headache Verified 12/08/24 11:22 Exam 2 Narrative: APPEARANCE: No apparent distress. Head: atraumatic. TMs normal bilaterally, no erythema posterior oropharynx EYES: EOMI, NOSE: Atraumatic NECK: Trachea midline RESPIRATORY: No increased rate of breathing clear to auscultation CARDIOVASCULAR: RRR, no peripheral edema ABDOMINAL: Non-distended soft nontender MUSCULOSKELETAl: No obvious deformities NEURO: Alert. Moving 4/4 extremities SKIN:: Warm, dry. Normal color PSYCHIATRIC: Normal affect Course Vital Signs Vital signs: Vital Signs Temperature 97.6 F 12/08/24 11:24 Pulse Rate 70 12/08/24 11:24 Respiratory Rate 16 12/08/24 11:24 Blood Pressure 118/65 12/08/24 11:24 Pulse Oximetry 100 12/08/24 11:24 Temperature 97.6 F 12/08/24 11:24 Pulse Rate 70 12/08/24 11:24 Respiratory Rate 16 12/08/24 11:24 Blood Pressure 118/65 12/08/24 11:24 Pulse Oximetry 99 12/08/24 11:33 Oxygen Delivery Room Air 12/08/24 11:33 Medical Decision Making [facility] Narrative Medical decision making narrative: -Course: 29-year-old male presenting with flu-like symptoms. He is positive for COVID. Vital signs stable with no oxygen requirements. Laboratory studies within normal limits. Chest x-ray unremarkable. Discussed Paxlovid with the patient and he has declined. He is young/healthy with no comorbidities so I feel this is appropriate. Patient will be discharged with return precautions. -DDX includes but is not limited to: COVID flu viral syndrome pneumonia traveler's diarrhea Vital Signs Vital Signs: Vital Signs Temperature 97.6 F 12/08/24 11:24 Pulse Rate 70 12/08/24 11:24 Respiratory Rate 16 12/08/24 11:24 Blood Pressure 118/65 12/08/24 11:24 Pulse Oximetry 100 12/08/24 11:24 Temperature 97.6 F 12/08/24 11:24 Pulse Rate 70 12/08/24 11:24 Respiratory Rate 16 12/08/24 11:24 Blood Pressure 118/65 12/08/24 11:24 Pulse Oximetry 99 12/08/24 11:33 Oxygen Delivery Room Air 12/08/24 11:33 Lab Data 12/08/24 12:57 12/08/24 12:57 Labs: Lab Results 12/08/24 12/08/24 Range/Units 11:37 12:57 WBC 4.4 L (4.5-10.0) K/mm3 RBC 4.74 (4.6-6.20) M/mm3 Hgb 14.3 (14.0-18.0) g/dL Hct 41.9 L (42.0-52.0) % MCV 88.4 (80-100) fl MCH 30.2 (26-34) pg MCHC 34.1 (32-36) g/dl RDW 12.1 (11.5-14.5) % Plt Count 193 (150-375) k/mm3 MPV 8.1 (7.4-10.4) fl Immature Gran % (Auto) 0.2 (0-0.5) % Neut % (Auto) 77.3 H (45.5-73.1) % Lymph % (Auto) 7.8 L (18.3-44.2) % Donley % (Auto) 13.3 H (2.6-8.5) % Eos % (Auto) 0.5 (0-4.4) % Baso % (Auto) 0.9 (0.2-1.2) % Lymph # (Auto) 0.34 L (0.9-3.2) K/mm3 Donley # (Auto) 0.6 (0.1-0.6) K/mm3 Eos # (Auto) 0.0 (0-0.3) K/mm3 Baso # (Auto) 0.0 (0.0-0.1) K/mm3 Abs Immat Gran (auto) 0.01 (0.00-0.031) K/mm3 Absolute Neuts (auto) 3.4 (1.3-6.7) K/mm3 Absolute Nucleated RBC 0.000 (0.0-0.012) K/mm3 Nucleated RBC % 0.0 (0.0-0.2) % Sodium 136 L (137-145) mmol/L Potassium 3.9 (3.4-5.0) mmol/L Chloride 102 (98-107) mmol/L Carbon Dioxide 30 (22-30) mmol/L Anion Gap 4 (4-12) mmol/L BUN 14 (9-20) mg/dL Creatinine 0.75 (0.7-1.3) mg/dL Estim Creat Clear Calc 124 ml/min Estimated GFR > 60 (59 - ) Glucose 100 (65-110) mg/dL Calcium 9.3 (8.4-10.2) mg/dL Total Bilirubin 0.9 (0.2-1.3) mg/dL AST 47 (17-59) U/L ALT 48 (6-50) U/L Alkaline Phosphatase 66 (38-126) U/L Total Protein 7.0 (6.3-8.2) g/dL Albumin 4.5 (3.5-5.1) g/dL Influenza A (RT-PCR) Negative (Negative) Influenza B (RT-PCR) Negative (Negative) RSV (RT-PCR) Negative (Negative) SARS-CoV-2 RNA (RT-PCR) Positive A (Negative) Discharge Plan Discharge Clinical Impression: COVID Patient Disposition: Home Condition: Stable Instructions: Antibiotic Form, COVID-19 (Coronavirus Disease 2019) (ED) Additional Instructions: You were seen in the emergency department for COVID infection. Please use Motrin Tylenol as needed for body aches fevers. Please drink plenty of fluids. If you feel your condition is getting worse or you develop shortness of breath chest pain please return to the ED for evaluation Patient Language: Mauritian Prescriptions: No Action ibuprofen 600 mg tablet 600 mg PO Q6H PRN (Reason: pain) Qty: 30 0RF Benadryl 2 % gel 1 applic topical BID PRN (Reason: skin irritation) Qty: 103 0RF cyclobenzaprine 5 mg tablet 5 mg PO HS PRN (Reason: muscle spasm) Qty: 10 0RF naproxen 250 mg tablet 250 mg PO BID PRN (Reason: pain) Qty: 14 0RF levofloxacin 500 mg tablet 500 mg PO DAILY Qty: 10 0RF acetaminophen 500 mg tablet 1,000 mg PO TID PRN (Reason: maximiliano) 7 Days Qty: 42 0RF ibuprofen 800 mg tablet 800 mg PO TID PRN (Reason: pain) 7 Days Qty: 21 0RF Follow-up/Referrals: Tia,REJI Argueta [Primary Care Provider] -
== END 2024-12-08 13:59 | disposition home or self-care (01) ==
PROVIDERS: Emergency Medicine; Emergency Provider Emergency Medicine; PCP Physician Assistant
DX: U07.1 COVID-19 (principal)
CPT/HCPCS: 36415; 71045; 80053; 85025; 87637; 93005; 96361; 96374; 99284; J1885; J7030

== ENCOUNTER 2025-01-19 13:40 | Outpatient (CLI) | payer BC, SELFPAY ==
--- NOTE | ~2025-01-19 | MR_ITS ---
MRI of the lumbar spine Clinical History: Back pain Technique: Axial T2-weighted images, and sagittal T1-weighted, T2-weighted, and T2 fat-sat images wer e acquired. Findings: There is no fracture or subluxation of the lumbar spine. Vertebral bodies maintain normal h eight and alignment. No bone marrow signal abnormality seen. Intervertebral discs maintain normal signal and position throughout the lumbar spine. No significant disc bulge or herniation seen. There are mild facet joint degenerative changes throughout the lumbar spine. No spinal canal stenosis identified. There is minimal bilateral neural foraminal narrowing at L4-L5 and L5-S1. Paravertebral soft tissues are unremarkable. Impression: Minimal degenerative change, as above. Reviewed, dictated and finalized at location . Impression: Minimal degenerative change, as above.
--- NOTE | ~2025-01-19 | MR_ITS ---
MRI of the thoracic spine Clinical History: Back pain Technique: Axial T2-weighted and gradient images, and sagittal T1-weighted, T2-weighted, and STIR peg ges were acquired. Findings: There is no fracture or subluxation of the thoracic spine. Vertebral bodies maintain normal height and alignment. No bone marrow signal abnormality seen. Intervertebral disc spaces are well preserved. No significant disc bulge or herniation seen in the th oracic spine. No spinal canal stenosis or cord compression identified. Neural foramina are preserved throughout the thoracic spine. No abnormal signal seen in the spinal cord. No epidural mass or collection. Paravertebral soft tissue s are unremarkable. Impression: Unremarkable exam. Reviewed, dictated and finalized at location M. Impression: Unremarkable exam.
== END 2025-01-19 13:41 | disposition home or self-care (01) ==
LOC: MICIMG 13:41
PROVIDERS: PCP Physician Assistant; Visit Provider Nurse Practitioner Family
DX: M54.59 Other low back pain (principal)
CPT/HCPCS: 72146; 72148

== ENCOUNTER 2025-05-05 23:29 | Emergency (ER) | payer BC, SELFPAY ==
--- OUTSIDE RECORDS SUMMARY | 2023-03-03 08:30 | XMS_ITS | Continuity of Care Document ---
Author Organization [facility] [place] Address [address] [facility] [address] [place] [address] Phone Care Team Providers Care Street Worker Name Role Phone Jimi Us PT Unavailable Unavailable Procedures Procedure Date Progress Note Therapeutic Activities Neuromuscular Re-Ed Manual Therapy Therapeutic Exercise Therapeutic Activities Neuromuscular Re-Ed Therapeutic Exercise Hot or Cold Pack Therapeutic Activities Neuromuscular Re-Ed Therapeutic Exercise Hot or Cold Pack Therapeutic Activities Neuromuscular Re-Ed Therapeutic Exercise Manual Therapy Therapeutic Activities Neuromuscular Re-Ed Therapeutic Exercise Manual Therapy Therapeutic Activities Neuromuscular Re-Ed Therapeutic Exercise Manual Therapy Therapeutic Activities Neuromuscular Re-Ed Therapeutic Exercise Manual Therapy Hot or Cold Pack Progress Note Therapeutic Activities Neuromuscular Re-Ed Therapeutic Exercise Manual Therapy Therapeutic Activities Neuromuscular Re-Ed Therapeutic Exercise Hot or Cold Pack Manual Therapy Therapeutic Activities Neuromuscular Re-Ed Therapeutic Exercise Manual Therapy Hot or Cold Pack Therapeutic Activities Neuromuscular Re-Ed Therapeutic Exercise Manual Therapy Hot or Cold Pack Therapeutic Activities Neuromuscular Re-Ed Therapeutic Exercise Manual Therapy Hot or Cold Pack Therapeutic Activities Neuromuscular Re-Ed Therapeutic Exercise Manual Therapy Hot or Cold Pack Therapeutic Activities Neuromuscular Re-Ed Therapeutic Exercise Therapeutic Activities Neuromuscular Re-Ed Therapeutic Exercise Hot or Cold Pack Manual Therapy Therapeutic Activities Neuromuscular Re-Ed Therapeutic Exercise Manual Therapy Progress Note Therapeutic Activities Neuromuscular Re-Ed Therapeutic Exercise Manual Therapy Hot or Cold Pack Therapeutic Activities Neuromuscular Re-Ed Therapeutic Exercise Manual Therapy Hot or Cold Pack Therapeutic Activities Neuromuscular Re-Ed Therapeutic Exercise Hot or Cold Pack Manual Therapy Therapeutic Activities Neuromuscular Re-Ed Therapeutic Exercise Manual Therapy Hot or Cold Pack Therapeutic Activities Neuromuscular Re-Ed Therapeutic Exercise Manual Therapy Hot or Cold Pack Therapeutic Activities Neuromuscular Re-Ed Therapeutic Exercise Manual Therapy Hot or Cold Pack Therapeutic Activities Neuromuscular Re-Ed Therapeutic Exercise Manual Therapy Hot or Cold Pack Therapeutic Activities Neuromuscular Re-Ed Therapeutic Exercise Manual Therapy Hot or Cold Pack Therapeutic Activities Neuromuscular Re-Ed Therapeutic Exercise Manual Therapy Hot or Cold Pack Therapeutic Activities Neuromuscular Re-Ed Therapeutic Exercise Manual Therapy Therapeutic Activities Neuromuscular Re-Ed Therapeutic Exercise Manual Therapy Progress Note Therapeutic Activities Therapeutic Exercise Neuromuscular Re-Ed Manual Therapy Therapeutic Activities Neuromuscular Re-Ed Therapeutic Exercise Manual Therapy Hot or Cold Pack Therapeutic Activities Neuromuscular Re-Ed Therapeutic Exercise Manual Therapy Hot or Cold Pack Therapeutic Activities Neuromuscular Re-Ed Therapeutic Exercise Manual Therapy Hot or Cold Pack Therapeutic Activities Neuromuscular Re-Ed Therapeutic Exercise Manual Therapy Hot or Cold Pack Therapeutic Activities Neuromuscular Re-Ed Therapeutic Exercise Hot or Cold Pack Manual Therapy Therapeutic Activities Neuromuscular Re-Ed Therapeutic Exercise Manual Therapy Hot or Cold Pack Therapeutic Activities Neuromuscular Re-Ed Therapeutic Exercise Manual Therapy Hot or Cold Pack Therapeutic Activities Neuromuscular Re-Ed Manual Therapy Therapeutic Exercise Hot or Cold Pack Therapeutic Activities Neuromuscular Re-Ed Therapeutic Exercise Manual Therapy Hot or Cold Pack Therapeutic Activities Neuromuscular Re-Ed Therapeutic Exercise Manual Therapy Hot or Cold Pack Therapeutic Activities Neuromuscular Re-Ed Therapeutic Exercise Manual Therapy Hot or Cold Pack Therapeutic Activities Neuromuscular Re-Ed Therapeutic Exercise Manual Therapy Hot or Cold Pack Therapeutic Activities Neuromuscular Re-Ed Therapeutic Exercise Manual Therapy Hot or Cold Pack Therapeutic Activities Neuromuscular Re-Ed Therapeutic Exercise Manual Therapy Hot or Cold Pack Therapeutic Activities Neuromuscular Re-Ed Therapeutic Exercise Manual Therapy Hot or Cold Pack Progress Note Therapeutic Activities Neuromuscular Re-Ed Therapeutic Exercise Manual Therapy Hot or Cold Pack Therapeutic Activities Neuromuscular Re-Ed Therapeutic Exercise Manual Therapy Therapeutic Activities Neuromuscular Re-Ed Therapeutic Exercise Manual Therapy Hot or Cold Pack Therapeutic Activities Neuromuscular Re-Ed Therapeutic Exercise Manual Therapy Hot or Cold Pack Therapeutic Activities Neuromuscular Re-Ed Therapeutic Exercise Manual Therapy Therapeutic Activities Neuromuscular Re-Ed Therapeutic Exercise Manual Therapy Hot or Cold Pack Therapeutic Activities Neuromuscular Re-Ed Therapeutic Exercise Manual Therapy Hot or Cold Pack Therapeutic Activities Neuromuscular Re-Ed Therapeutic Exercise Manual Therapy Hot or Cold Pack Therapeutic Activities Neuromuscular Re-Ed Therapeutic Exercise Manual Therapy Hot or Cold Pack Therapeutic Activities Neuromuscular Re-Ed Therapeutic Exercise Manual Therapy Hot or Cold Pack Therapeutic Activities Neuromuscular Re-Ed Therapeutic Exercise Manual Therapy Therapeutic Activities Neuromuscular Re-Ed Therapeutic Exercise Manual Therapy Hot or Cold Pack PT Evaluation Moderate Complexity Therapeutic Activities Neuromuscular Re-Ed Therapeutic Exercise Manual Therapy Hot or Cold Pack BILINGUAL NANNY Acute Work Conditioning Initial 2 hrs 023 Work Conditioning Initial 2 hrs 023 Work Conditioning Initial 2 hrs 023 Work Conditioning Initial 2 hrs 023 Work Conditioning Initial 2 hrs 023 Work Conditioning Initial 2 hrs 023 Work Conditioning Initial 2 hrs 023 BILINGUAL NANNY Acute Work Conditioning Initial 2 hrs 023 Work Conditioning add 1 hr Work Conditioning Initial 2 hrs 023 Work Conditioning Initial 2 hrs 023 Work Conditioning Initial 2 hrs 023 Work Conditioning Initial 2 hrs 023 Work Conditioning Initial 2 hrs 023 Work Conditioning Initial 2 hrs 023 Work Conditioning Initial 2 hrs 023 WORK COND/WORK HARD RE EVAL Work Conditioning Initial 2 hrs 023 Work Conditioning Initial 2 hrs 022 Work Conditioning Initial 2 hrs 022 Work Conditioning Initial 2 hrs 022 Work Conditioning Initial 2 hrs 022 Work Cond Initial Report Advance Directives Directive Yes / No Effective Date File Name No Information Encounters Encounter Description Practice Location Reason(s) For Visit Diagnoses Date Provider Providers Copied on Encounter [facility] [place] [address], [place], [place], [id number], [place] tel:[phone] [place] No Information Abeba Krause. . Referring Provider: Ellie Weber, [address] [facility] [facility], [place], [address]. tel:[phone] [facility] [facility] [address], [place], [place], [id number], [place] tel:[phone] [place] No Information Garo Moran. [address] [facility], [address], [place], [address], [place]. tel:[phone] Referring Provider: Ellie Weber, [address] [place] [address] Road [address], [place], [address]. tel:[phone] [place] [address] [facility] [address], [place], [place], [address], [place] tel:[phone] [place] No Information Garo Moran. [address] [facility], [address], [place], [address], [place]. tel:[phone] Referring Provider: Ellie Weber, [address] [place] [address] Road [address], [place], [address]. tel:[phone] [place] [address] [facility] [address], [place], [place], [address], [place] tel:[phone] [place] No Information Modglin Jimi. . Referring Provider: Ellie Weber, [address] [place] [address] Road [address], [place], [address]. tel:[phone] [facility] [address], [place], [place], [address], [place] tel:[phone] [place] No Information Modglin Jimi. . Referring Provider: Ellie Weber, [address] [place] [address] Road [address], [place], [address]. tel:[phone] [place] [address], [place], [place], [address], [place] tel:[phone] [place] No Information Modglin Jimi. . Referring Provider: Ellie Weber, [address] [place] [address] Road [address], [place], [address]. tel:[phone] [facility], [place], [place], [address], [place] tel:[phone] [place] No Information Garo Moran. [address] [facility], [address], [place], [place], [facility], [place]. tel:[phone] Referring Provider: Ellie Weber, [facility], [place], [address]. tel:[phone] [facility], [place], [place], [address], [place] tel:[phone] [place] No Information Roman Weber. . Referring Provider: Ellie Weber, [address] [place] [address] Road [address], [place], [address]. tel:[phone] [facility], [place], [place], [address], [place] tel:[phone] [place] No Information Roman Weber. . Referring Provider: Ellie Weber, [address] [place] [address] Road [address], [place], [address]. tel:[phone] [facility], [place], [place], [address], [place] tel:[phone] [place] No Information Wagner Mitchell. . Referring Provider: Ellie Weber, [address] [place] [address] Road [address], [place], [address]. tel:[phone] [facility], [place], [place], [address], [place] tel:[phone] [place] No Information Roman Weber. . Referring Provider: Ellie Weber, [address], [place], [address]. tel:[phone] [facility], [place], [place], [address], [place] tel:[phone] [place] No Information Roman Weber. . Referring Provider: Ellie Weber, [facility], [place], [address]. tel:[phone] [facility], [place], [place], [address], [place] tel:[phone] [place] No Information Wagner Mitchell. . Referring Provider: Ellie Weber, [address] [place] [address] Road [address], [place], [address]. tel:[phone] [facility] [address], [place], [place], [address], tel:[phone] [place] No Information Wagner Mitchell. . Referring Provider: Ellie Weber [address] [place] [address] [address], [place], [address]. tel:[phone] [facility] [address], [place], [address], [place] tel:[phone] [place] No Information Garo Moran. [address] [facility], [address], [place], [facility], . tel:[phone] Referring Provider: Ellie Weber, [address] [place] [address] [address], [place], [address]. tel:[phone] [facility], [place], [place], [address], [place] tel:[phone] [place] No Information Roman Weber. . Referring Provider: Ellie Weber, [facility], [place], [address]. tel:[phone] [facility], [place], [place], [address], [place] tel:[phone] [place] No Information Roman Weber. . Referring Provider: Ellie Hollanddulce maria, [address], [place], [address]. tel:[phone] [address], [place], [place], [address], tel:[phone] [place] No Information Garo Moran. [address] [facility], [address], [place], [place], [facility], [place]. tel:[phone] Referring Provider: Ellie Carteraminah, [address], [place], [address]. tel:[phone] [address], [place], [place], [address], [place] tel:[phone] [place] No Information Garo Moran. [address] [facility], [address], [place], [facility], [place]. tel:[phone] Referring Provider: Ellie aCrteraminah, [address], [place], [address]. tel:[phone] [address], [place], [place], [address], [place] tel:[phone] [place] No Information Garo Moran. [address] [facility], [address], [place], [facility], [place]. tel:[phone] Referring Provider: Ellie Carteraminah, [address], [place], [address]. tel:[phone] [address], [place], [place], [address], [place] tel:[phone] [place] No Information Wagner Mitchell. . Referring Provider: Ellie Weber, [address], [place], [address]. tel:[phone] [facility], [address] [facility] [address], [place], [address], [place] tel:[phone] [place] No Information Roman Weber. . Referring Provider: Ellie Weber, [address], [place], [address]. tel:[phone] [facility] [address], [place], [place], [address], tel:[phone] [place] No Information Wagner Mitchell. . Referring Provider: Ellie Weber, [address] [place] [address] Road [address], [place], [address]. tel:[phone] [facility] [address], [place], [place], [address], tel:[phone] [place] No Information Garo Moran. [address] [place] [address], [address], [place], [facility], . tel:[phone] Referring Provider: Ellie Weber, [facility], [place], [address]. tel:[phone] [facility] [address], [place], [place], [address], tel:[phone] [place] No Information Garo Moran. [address] [facility], [address], [place], [facility], [place]. tel:[phone] Referring Provider: Ellie Weber, [address], [place], [address]. tel:[phone] [facility] [address], [place], [place], [address], tel:[phone] [place] No Information Garo Moran. [address] [facility], [address], [place], [facility], [place]. tel:[phone] Referring Provider: Ellie Weber, [address], [place], [address]. tel:[phone] [place] [address], [place], [place], [address], tel:[phone] [place] No Information Hisky Gus. . Referring Provider: Ellie Weber, [address], [place], [address]. tel:[phone] [address], [place], [place], [address], [place] tel:[phone] [place] No Information Short Pat. . Referring Provider: Ellie Webre, [address], [place], [address]. tel:[phone] [place] [address] [address], [place], [place], [address], tel:[phone] [place] No Information Short Pat. . Referring Provider: Ellie Weber, [address], [place], [address]. tel:[phone] [address], [place], [place], [address], tel:[phone] [place] No Information Garo Moran. [address] [place] [address], [address], [place], [facility], . tel:[phone] Referring Provider: Ellie Weber, [address], [place], [address]. tel:[phone] [address], [place], [place], [address], tel:[phone] [place] No Information Garo Moran. [address] [place] [address], [address], [place], [facility], [place]. tel:[phone] Referring Provider: Ellie Weber, [address], [place], [address]. tel:[phone] [facility], [address], [place], [place], [address], [place] tel:[phone] [place] No Information Short Pat. . Referring Provider: Ellie Weber, [address], [place], [address]. tel:[phone] [facility] [address], [place], [place], [address], [place] tel:[phone] [place] No Information Garo Moran. [address] [facility], [address], [place], [facility], . tel:[phone] Referring Provider: Ellie Weber, [facility], [place], [address]. tel:[phone] [facility] [address], [place], [place], [address], [place] tel:[phone] [place] No Information Hisgareth Weber. . Referring Provider: Elliemoraima Weber, [address], [place], [address]. tel:[phone] [facility] [address], [place], [place], [address], [place] tel:[phone] [place] No Information Garo Moran. [address] [facility], [address], [place], [facility], . tel:[phone] Referring Provider: Ellie Weber, [address], [place], [address]. tel:[phone] [facility], [place], [place], [address], [place] tel:[phone] [place] No Information Garo Moran. [address] [facility], [address], [place], [address], [place]. tel:[phone] Referring Provider: Ellie Weber, [address], [place], [address]. tel:[phone] [facility], [address], [place], [place], [address], [place] tel:[phone] [place] No Information Garo Moran. [address] [facility], [address], [place], [address], [place]. tel:[phone] Referring Provider: Ellie Weber, [address] [place] [address] Road [address], [place], [address]. tel:[phone] [facility] [address], [place], [place], [address], [place] tel:[phone] [place] No Information Roman Weber. . Referring Provider: Ellie Weber, [facility], [place], [address]. tel:[phone] [facility] [address], [place], [place], [address], [place] tel:[phone] [place] No Information Roman Weber. . Referring Provider: Ellie Weber, [address], [place], [address]. tel:[phone] [facility], [address], [place], [place], [address], [place] tel:[phone] [place] No Information Roge De La Cruz. . Referring Provider: Ellie Weber, [address], [place], [address]. tel:[phone] [facility], [place], [place], [address], [place] tel:[phone] [place] No Information Garo Moran. [address] [facility], [address], [place], [facility], [place]. tel:[phone] Referring Provider: Ellie Weber, [address] [place] [address] Road [address], [place], [address]. tel:[phone], [place], [place], [address], tel:[phone] [place] No Information Garo Moran. [address] [facility], [address], [place], [facility], [place]. tel:[phone] Referring Provider: Ellie Weber, [address] [place] [address] [address], [place], [address]. tel:[phone], [place], [place], [address], tel:[phone] [place] No Information Garo Moran. [address] [facility], [address], [place], [facility], [place]. tel:[phone] Referring Provider: Ellie Weber, [address] [place] [address] [address], [place], [address]. tel:[phone] [address], [place], [place], [address], tel:[phone] [place] No Information Roman Rodas . Referring Provider: Ellie Weber, [address] [place] [address] Road [address], [place], [address]. tel:[phone] [address], [place], [place], [address], tel:[phone] [place] No Information Garo Moran. [address] [facility], [address], [place], [facility], [place]. tel:[phone] Referring Provider: Ellie Weber, [address], [place], [address]. tel:[phone] [facility], [facility] [address], [place], [place], [address], tel:[phone] [place] No Information Garo Moran. [address] [facility], [address], [place], [facility], [place]. tel:[phone] Referring Provider: Ellie Weber, [address], [place], [address]. tel:[phone] [facility] [address] [place], [place] [address], [place], [place], [address], [place] tel:[phone] [place] No Information Garo Moran. [address] [facility], [address], [place], [facility], [place]. tel:[phone] Referring Provider: Ellie Weber, [facility], [place], [address]. tel:[phone] [facility] [address] [facility] [address], [place], [place], [address], [place] tel:[phone] [place] No Information Saad Moran. . Referring Provider: Ellie Weber, [facility], [place], [address]. tel:[phone] [facility], [address], [place], [place], [address], [place] tel:[phone] [place] No Information Short Pat. . Referring Provider: Ellie Weber, [address], [place], [address]. tel:[phone] [facility], [address], [place], [place], [address], tel:[phone] [place] No Information Short Pat. . Referring Provider: Ellie Weber, [address], [place], [address]. tel:[phone] [facility] [address], [place], [place], [address], [place] tel:[phone] [place] No Information Garo Moran. [address] [facility], [address], [place], [facility], [place]. tel:[phone] Referring Provider: Ellie Weber, [address], [place], [address]. tel:[phone] [facility] [address], [place], [place], [address], [place] tel:[phone] [place] No Information Garo Moran. [address] [place] [address], [address], [place], [facility], [place]. tel:[phone] Referring Provider: Ellie Weber, [address], [place], [address]. tel:[phone] [facility] [address], [place], [place], [address], [place] tel:[phone] [place] No Information Short Pat. . Referring Provider: Ellie Weber, [facility], [place], [address]. tel:[phone] [facility] [address], [place], [address], [place] tel:[phone] [place] No Information Garo Moran. [address] [place] [address], [address], [place], [facility], . tel:[phone] Referring Provider: Ellie Weber, [address], [place], [address]. tel:[phone] [place] [address], [place], [place], [address], [place] tel:[phone] [place] No Information Roman Weber. . Referring Provider: Ellie Weber, [address], [place], [address]. tel:[phone] [facility] [address], [place], [address], [place] tel:[phone] [place] No Information Roman Weber. . Referring Provider: Ellie Weber, [address], [place], [address]. tel:[phone] [facility], [place], [place], [id number], tel:[phone] [place] No Information Roman Weber. . [facility], [place], [place], [id number], [place] tel:[phone] [place] No Information Vladrels Paula. . [facility] [address], [place], [place], [id number], [place] tel:[phone] Scott No Information Garo Moran. [address] [place] [address], [address], [place], [place], [facility], [place]. tel:[phone] [facility], [place], [place], [id number], [place] tel:[phone] Scott No Information Garo Moran. [address] [place] [address], [address], [place], [place], [facility], [place]. tel:[phone] [facility], [place], [place], [id number], [place] tel:[phone] Scott No Information Garrels Paula. . [facility], [place], [place], [id number], [place] tel:[phone] [place] No Information Roman Weber. . [facility], [place], [place], [id number], [place] tel:[phone] Scott No Information Garo Moran. [address] [facility], [address], [place], [address], [place]. tel:[phone] [facility], [place], [place], [id number], [place] tel:[phone] [place] No Information Garrels Paula. . [facility], [place], [place], [id number], [place] tel:[phone] Scott No Information Garrels Paula. . [facility], [place], [place], [id number], [place] tel:[phone] Scott No Information Garrels Paula. . [facility], [place], [place], [id number], [place] tel:[phone] Scott No Information Garrels Paula. . [facility], [place], [place], [id number], [place] tel:[phone] [place] No Information Roman Gus. . [facility], [place], [place], [id number], [place] tel:[phone] [place] No Information Garrels Paula. . [facility], [place], [place], [id number], [place] tel:[phone] Scott No Information Abeba Krause. . [facility], [id number], tel:[phone] [place] No Information Garo Moran. [address] [place] [address], [address], [place], [facility], . tel:[phone] [facility] [address], [id number], [phone] [place] No Information Sonam Moctezuma. [address] [place] [address], . tel:[phone] [facility], [id number], [phone] [place] No Information Garo Moran. [address] [place] [address], [facility] [address] [address], . tel:[phone] [facility], [id number], [phone] [place] No Information Garrels Paula. . [facility], [id number], tel:[phone] Scott No Information Garrels Paula. . [facility], [id number], tel:[phone] Scott No Information Garrels Paula. . [facility], [id number], tel:[phone] Scott No Information Elias Roe. . Family History Family Member Type Diagnosis Age At Onset No Information Payers Payer name Insurance type Covered democrat ID Authoriza tion(s) [facility] [id number] [facility] Social History Type Description Quantity Date Captured Comments Sex Male Smoking Status No Information Chief Complaint And Reason For Visit No Information Reason For Referral Reason For Referral No Information History Of Present Illness Encounter Date Complaint History Of Prese nt Illness No Information Functional Status Date Functional Assessmen t No Information Instructions Date Instruction Additional Infor mation No Information Assessments Type Assessment Date No Information Patient Care Teams Name Effective Dates (start - stop) Status Members No Information
--- OUTSIDE RECORDS SUMMARY | 2023-03-03 08:30 | XMS_ITS | Continuity of Care Document ---
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 . Referring Provider: Ellie Weber, [address] [facility] [address] [facility], [place], [address]. tel:[phone] [facility] [address], [place], [place], [address], [place] tel:[phone] [place] No Information Garo Moran. [address] [facility], [address], [place], [address], [place]. tel:[phone] Referring Provider: Ellie Weber, [address] [place] [address] Road [address], [place], [address]. tel:[phone] [place] [address] [facility], [place], [place], [address], [place] tel:[phone] [place] No Information Garo Moran. [address] [facility], [address], [place], [address], [place]. tel:[phone] Referring Provider: Ellie Weber, [address] [place] [address] Road [address], [place], [address]. tel:[phone] [place] [address] [facility], [place], [place], [address], [place] tel:[phone] [place] No Information Modglin Jimi. . Referring Provider: Ellie Weber, [address] [place] [address] Road [address], [place], [address]. tel:[phone] [facility] [address] [facility], [place], [place], [address], [place] tel:[phone] [place] No Information Modglin Jimi. . Referring Provider: Ellie Weber, [address] [place] [address] Road [address], [place], [address]. tel:[phone] [place] [address] [address], [place], [place], [address], [place] tel:[phone] [place] No Information Modglin Jimi. . Referring Provider: Ellie Weber, [address] [place] [address] Road [address], [place], [address]. tel:[phone] [facility], [place], [place], [address], [place] tel:[phone] [place] No Information Garo Moran. [address] [facility], [address], [place], [place], [facility] [place], [place]. tel:[phone] Referring Provider: Ellie Weber, [facility] [facility] [address], [place], [address]. tel:[phone] [facility], [place], [place], [address], [place] tel:[phone] [place] No Information Roman Weber. . Referring Provider: Ellie Weber, [address] [place] [address] Road [address], [place], [address]. tel:[phone] [facility], [place], [place], [address], [place] tel:[phone] [place] No Information Roman Weber. . Referring Provider: Ellie Weber, [address] [place] [address] Road [address], [place], [address]. tel:[phone] [facility], [place], [place], [address], [place] tel:[phone] [place] No Information Wagner Mitchell. . Referring Provider: Ellie Weber, [address] [place] [address] Road [address], [place], [address]. tel:[phone] [facility], [place], [place], [address], [place] tel:[phone] [place] No Information Roman Weber. . Referring Provider: Ellie Weber, [address] [facility] [address], [place], [address]. tel:[phone] [facility], [place], [place], [address], [place] tel:[phone] [place] No Information Roman Weber. . Referring Provider: Ellie Weber, [facility] [facility] [address], [place], [address]. tel:[phone] [facility], [place], [place], [address], [place] tel:[phone] [place] No Information Wagner Mitchell. . Referring Provider: Ellie Weber, [address] [place] [address] Road [address], [place], [address]. tel:[phone] [facility] [address] [facility], [place], [place], [address], tel:[phone] [place] No Information Wagner Mitchell. . Referring Provider: Ellie Weber [address] [place] [address] [address], [place], [address]. tel:[phone] [facility] [address] [facility], [place], [place], [address], [place] tel:[phone] [place] No Information Garo Moran. [address] [facility], [address], [place], [facility] [place], . tel:[phone] Referring Provider: Ellie Weber, [address] [place] [address] [address], [place], [address]. tel:[phone] [facility], [place], [place], [address], [place] tel:[phone] [place] No Information Roman Weber. . Referring Provider: Ellie Weber, [facility] [facility] [address], [place], [address]. tel:[phone] [facility], [place], [place], [address], [place] tel:[phone] [place] No Information Roman Weber. . Referring Provider: Ellie Hollanddulce maria, [address] [facility] [address] [facility] [address], [facility] [place], [address]. tel:[phone] [address], [place], [place], [address], tel:[phone] [place] No Information Garo Moran. [address] [facility], [address], [place], [place], [facility] [place], [place]. tel:[phone] Referring Provider: Ellie Carteraminah, [address] [facility] [address] [facility] [address], [place], [address]. tel:[phone] [address], [place], [place], [address], [place] tel:[phone] [place] No Information Garo Moran. [address] [facility], [address], [place], [place], [facility] [place], [place]. tel:[phone] Referring Provider: Ellie Carteraminah, [address] [facility] [address], [place], [address]. tel:[phone] [address], [place], [place], [address], [place] tel:[phone] [place] No Information Garo Moran. [address] [facility], [address], [place], [place], [facility] [place], [place]. tel:[phone] Referring Provider: Ellie Carteraminah, [address], [place], [address]. tel:[phone] [address], [place], [place], [address], [place] tel:[phone] [place] No Information Wagner Mitchell. . Referring Provider: Ellie Weber, [address] [facility] [address], [place], [address]. tel:[phone] [facility], [address] [facility], [place], [place], [address], [place] tel:[phone] [place] No Information Roman Weber. . Referring Provider: Ellie Weber, [address] [facility] [address], [place], [address]. tel:[phone] [facility] [address] [facility] [address], [place], [place], [address], tel:[phone] [place] No Information Wagner Mitchell. . Referring Provider: Ellie Weber, [address] [place] [address] Road [address], [place], [address]. tel:[phone] [facility] [address] [facility], [place], [place], [address], tel:[phone] [place] No Information Garo Moran. [address] [place] [address], [address], [place], [facility], . tel:[phone] Referring Provider: Ellie Weber, [facility] [facility] [address], [place], [address]. tel:[phone] [facility] [address] [facility], [place], [place], [address], tel:[phone] [place] No Information Garo Moran. [address] [facility], [address], [place], [place], [facility] [place], [place]. tel:[phone] Referring Provider: Ellie Weber, [address] [facility] [address], [place], [address]. tel:[phone] [facility] [address] [facility], [place], [place], [address], tel:[phone] [place] No Information Garo Moran. [address] [facility], [address], [place], [place], [facility] [place], [place]. tel:[phone] Referring Provider: Ellie Weber, [address] [facility] [address], [place], [address]. tel:[phone] [place] [address], [place], [place], [address], tel:[phone] [place] No Information Hisky Gus. . Referring Provider: Ellie Weber, [address] [facility] [address], [place], [address]. tel:[phone] [address], [place], [place], [address], [place] tel:[phone] [place] No Information Short Pat. . Referring Provider: Ellie Weber, [address] [facility] [address], [place], [address]. tel:[phone] [place] [address] [address], [place], [place], [address], tel:[phone] [place] No Information Short Pat. . Referring Provider: Ellie Weber, [address] [facility] [address], [place], [address]. tel:[phone] [address], [place], [place], [address], tel:[phone] [place] No Information Garo Moran. [address] [place] [address], [address], [place], [facility], . tel:[phone] Referring Provider: Ellie Weber, [address] [facility] [address], [place], [address]. tel:[phone] [address], [place], [place], [address], tel:[phone] [place] No Information Garo Moran. [address] [place] [address], [address], [place], [place], [facility] [place], [place]. tel:[phone] Referring Provider: Ellie Weber, [address] [facility] [address], [place], [address]. tel:[phone] [facility], [address], [place], [place], [address], [place] tel:[phone] [place] No Information Short Pat. . Referring Provider: Ellie Weber, [address] [facility] [address], [place], [address]. tel:[phone] [facility] [address], [place], [place], [address], [place] tel:[phone] [place] No Information Garo Moran. [address] [facility], [address], [place], [place], [facility], . tel:[phone] Referring Provider: Ellie Weber, [facility] [facility] [address], [place], [address]. tel:[phone] [facility] [address], [place], [place], [address], [place] tel:[phone] [place] No Information Hisgareth Weber. . Referring Provider: Elliemoraima Weber, [address] [facility] [address], [place], [address]. tel:[phone] [facility] [address], [place], [place], [address], [place] tel:[phone] [place] No Information Garo Moran. [address] [facility], [address], [place], [place], [facility], . tel:[phone] Referring Provider: Ellie Weber, [address] [facility] [address], [place], [address]. tel:[phone] [facility], [place], [place], [address], [place] tel:[phone] [place] No Information Garo Moran. [address] [facility], [address], [place], [address], [place]. tel:[phone] Referring Provider: Ellie Weber, [address] [facility] [address] [facility] [address], [place], [address]. tel:[phone] [facility], [address], [place], [place], [address], [place] tel:[phone] [place] No Information Garo Moran. [address] [facility], [address], [place], [address], [place]. tel:[phone] Referring Provider: Ellie Weber, [address] [place] [address] Road [address], [place], [address]. tel:[phone] [facility] [address], [place], [place], [address], [place] tel:[phone] [place] No Information Roman Weber. . Referring Provider: Ellie Weber, [facility] [facility] [address], [place], [address]. tel:[phone] [facility] [address], [place], [place], [address], [place] tel:[phone] [place] No Information Roman Weber. . Referring Provider: Ellie Weber, [address] [facility] [address], [place], [address]. tel:[phone] [facility], [address], [place], [place], [address], [place] tel:[phone] [place] No Information Roge De La Cruz. . Referring Provider: Ellie Weber, [address] [facility] [address], [place], [address]. tel:[phone] [facility], [place], [place], [address], [place] tel:[phone] [place] No Information Garo Moran. [address] [facility], [address], [place], [place], [facility], [place]. tel:[phone] Referring Provider: Ellie Weber, [address] [place] [address] Road [address], [place], [address]. tel:[phone], [place], [place], [address], tel:[phone] [place] No Information Garo Moran. [address] [facility], [address], [place], [facility], [place]. tel:[phone] Referring Provider: Ellie Weber, [address] [place] [address] [address], [place], [address]. tel:[phone], [place], [place], [address], tel:[phone] [place] No Information Garo Moran. [address] [facility], [address], [place], [facility], [place]. tel:[phone] Referring Provider: Ellie Weber, [address] [place] [address] [address], [place], [address]. tel:[phone] [address], [place], [place], [address], tel:[phone] [place] No Information Roman Rodas . Referring Provider: Ellie Weber, [address] [place] [address] Road [address], [place], [address]. tel:[phone] [address], [place], [place], [address], tel:[phone] [place] No Information Garo Moran. [address] [facility], [address], [place], [facility], [place]. tel:[phone] Referring Provider: Ellie Weber, [address] [facility] [address], [place], [address]. tel:[phone] [facility], [facility] [address], [place], [place], [address], tel:[phone] [place] No Information Garo Moran. [address] [facility], [address], [place], [place], [facility], [place]. tel:[phone] Referring Provider: Ellie Weber, [address] [facility] [address], [place], [address]. tel:[phone] [facility] [address] [place], [place] [address], [place], [place], [address], [place] tel:[phone] [place] No Information Garo Moran. [address] [facility], [address], [place], [facility], [place]. tel:[phone] Referring Provider: Ellie Weber, [facility] [facility] [address], [place], [address]. tel:[phone] [facility] [address] [facility], [place], [place], [address], [place] tel:[phone] [place] No Information Saad Moran. . Referring Provider: Ellie Weber, [facility] [facility] [address], [place], [address]. tel:[phone] [facility], [address], [place], [place], [address], [place] tel:[phone] [place] No Information Short Pat. . Referring Provider: Ellie Weber, [address] [facility] [address], [place], [address]. tel:[phone] [facility], [address], [place], [place], [address], tel:[phone] [place] No Information Short Pat. . Referring Provider: Ellie Weber, [address] [facility] [address], [place], [address]. tel:[phone] [facility] [address] [facility] [address], [place], [place], [address], [place] tel:[phone] [place] No Information Garo Moran. [address] [facility], [address], [place], [facility], [place]. tel:[phone] Referring Provider: Ellie Weber, [address] [facility] [address] [facility] [address], [place], [address]. tel:[phone] [facility] [address] [facility] [address], [place], [place], [address], [place] tel:[phone] [place] No Information Garo Moran. [address] [place] [address], [address], [place], [facility], [place]. tel:[phone] Referring Provider: Ellie Weber, [address] [facility] [address] [facility] [address], [place], [address]. tel:[phone] [facility] [address] [facility], [place], [place], [address], [place] tel:[phone] [place] No Information Short Pat. . Referring Provider: Ellie Weber, [facility] [facility] [address], [place], [address]. tel:[phone] [facility] [address] [facility], [place], [place], [address], [place] tel:[phone] [place] No Information Garo Moran. [address] [place] [address], [address], [place], [facility], . tel:[phone] Referring Provider: Ellie Weber, [address] [facility] [address], [place], [address]. tel:[phone] [place] [address], [place], [place], [address], [place] tel:[phone] [place] No Information Roman Weber. . Referring Provider: Ellie Weber, [address] [facility] [address], [place], [address]. tel:[phone] [facility] [address] [facility], [place], [place], [address], [place] tel:[phone] [place] No Information Roman Weber. . Referring Provider: Ellie Weber, [address] [facility] [address], [place], [address]. tel:[phone] [facility] [facility], [place], [place], [address], tel:[phone] [place] No Information Roman Weber. . [facility] [facility] [address], [place], [place], [address], [place] tel:[phone] [place] No Information Vladrels Paula. . [facility] [address] [facility], [place], [place], [address], [place] tel:[phone] [place] No Information Garo Moran. [address] [place] [address], [address], [place], [facility], [place]. tel:[phone] [facility] [facility], [place], [place], [address], [place] tel:[phone] [place] No Information Garo Moran. [address] [place] [address], [address], [place], [facility], [place]. tel:[phone] [facility] [facility] [address], [place], [place], [address], [place] tel:[phone] [place] No Information Garrels Paula. . [facility], [place], [place], [address], [place] tel:[phone] [place] No Information Roman Weber. . [facility], [place], [place], [address], [place] tel:[phone] [place] No Information Garo Moran. [address] [facility], [address], [place], [address], [place]. tel:[phone] [facility], [place], [place], [address], [place] tel:[phone] [place] No Information Garrels Paula. . [facility], [place], [place], [address], [place] tel:[phone] [place] No Information Garrels Paula. . [facility], [place], [place], [address], [place] tel:[phone] [place] No Information Garrels Paula. . [facility], [place], [place], [address], [place] tel:[phone] [place] No Information Garrels Paula. . [facility], [place], [place], [address], [place] tel:[phone] [place] No Information Roman Gus. . [facility], [place], [place], [address], [place] tel:[phone] [place] No Information Garrels Paula. . [facility], [place], [place], [address], [place] tel:[phone] [place] No Information Abeba Krause. . [facility], [id number], tel:[phone] [place] No Information Garo Moran. [address] [place] [address], [address], [place], [facility], . tel:[phone] [facility] [address], [address], [phone] [place] No Information Sonam Moctezuma. [address] [place] [address], . tel:[phone] [facility], [address], [phone] [place] No Information Garo Moran. [address] [place] [address], [facility] [address] [address], . tel:[phone] [facility], [address], [phone] [place] No Information Garrels Paula. . [facility], [id number], tel:[phone] [place] No Information Garrels Paula. . [facility], [address], tel:[phone] [place] No Information Garrels Paula. . [facility], [address], tel:[phone] [place] No Information Elias Roe. . Family History Family Member Type Diagnosis Age At Onset No Information Payers Payer name Insurance type Covered constitution party ID Authoriza tion(s) [facility] [id number] [facility] 00 Social History [...]
--- OUTSIDE RECORDS SUMMARY | 2025-05-05 23:31 | XMS_ITS | Clinical Summary ---
Author Organization [facility] Address [address] [place] [address] Care Team Providers Care Middleware Architect Name Role Phone Ellie Weber PA-C Primary Care Provider +1 [phone] Source Comments [facility] Aff[facility]ates and Associated Physician Practices is amultiple site organization consisting of ambulatory clinics and hospital sitesin [place], [place], [place] and [place]. This disclosure is being madepursuant to the Care Everywhere program and may not contain all information available regarding this patient. 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 Gender Identity Not on file [...] 02/09/2017 02/09/2007, 04/11/1998, 03/17/1997, Additional history exists HPV VACCINE (1 - 3-dose SCDM series) 2020 DEPRESSION SCREENING 07/14/2024 01/31/2024 COVID-19 VACCINE ( season) 2025 INFLUENZA VACCINE (#1) 2025 ZOSTER VACCINE (1 of 2) 10/25/2043 HEPATITIS B VACCINE Completed 07/13/1996, 1993, 1993 HIB VACCINE Completed 07/13/1996, 10/12, 03/08/1994 MENINGOCOCCAL GROUPS A/C/Y/W VACCINE Aged Out 02/09/2007 No longer eligible based on patient's age to complete this topic HIV SCREENING Completed 09/25/2016, 01/30/2016 MENINGOCOCCAL (Group B) VACCINE SHARED DECISION-MAKING Aged [...] CDT 09/25/2016 Narrative Resulting Agency Comment [facility] [place] [address] [facility] [id number] us Martin Ngo MD LAB - SEROLOGY ORDERABLES Final Result [facility] ACCOUNT BILL [address] [place] [address] from Last 3 Months or Most Recently Relevant to Health Maintenance Insurance [address]M [address] [place], [place] [address]EM PAYOR GENERIC * Guarantor: [employer] Account Type Relation to Patient Date of Phone Billing Address Personal/Family 1995 Roselia ORTIZ [address] [place] [address] Care Teams Middleware Architect Relationship Specialty Start Date End Date Ellie Weber PA-C [address] [address] PCP - General Physician Shirt Turner 02/07/22
[2025-05-05 23:32] VITALS: BP 112/57; PULSE 69; RESP 20; TEMP 37.1; O2SAT 99
--- OUTSIDE RECORDS SUMMARY | 2025-05-05 23:32 | XMS_ITS | Encounter Summary ---
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 [address] [place] [address] PCP - General Internal Medicine 12/11/18 documented as of this encounter
--- OUTSIDE RECORDS SUMMARY | 2025-05-05 23:32 | XMS_ITS | Encounter Summary ---
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 Gender Identity Not on file Sexual Orientation Not on file documented as of this encounter Plan of Treatment Not on file documented as of this encounter Procedures Procedure Name Priority Date/Time Associated Diagnosis Comments SCAN - RADIOLOGY/IMAGING 11/22/2024 documented in this encounter Results * SCAN - RADIOLOGY/IMAGING (11/22/2024) Anatomical Region Laterality Modality Other us Provider Scanning Edited Result - Final documented in this encounter Visit Diagnoses Not on filedocumented in this encounter Care Teams Digital Engineer Relationship Specialty Start Date End Date Ellie Weber PA [address] [facility] [address] [place] [address] PCP - General Internal Medicine 12/11/18 documented as of this encounter
--- OUTSIDE RECORDS SUMMARY | 2025-05-05 23:32 | XMS_ITS | Clinical Summary ---
Author Organization [facility] Address [address] [place] [id number] Care Team Providers Care Injection Molding Machine Offbearer Name Role Phone Ellie Weber Primary Care Provider +1- [phone] Allergies Active Allergy Reactions Criticality Noted Date Comments Meloxicam Headache Low 06/03/2022 Similar to a migraine, as of 02-15-22. Medications triamcinolone (KENALOG) 0.1 % creamIndication s:skin rash Apply topically 2 (two) times a day for [address] on face around eyes or on genitals 30 g 4 Active Additional Information Patient not taking.Reported on 01/10/2025 fluocinolone (DERMA-SMOOTH/F S) 0.01 % oil APPLY TOPICALLY TO SCALP SPARINGLY EVERY DAY NEEDED FOR FLARES 4 Active hydrocortisone 1 % cream APPLY TOPICALLY TO THE AFFECTED AREA FOUR TIMES DAILY Active ketoconazole (NIZORAL) 2 % shampoo USE TO WASH SCALP EVERY DAY 4 Active meloxicam (MOBIC) 15 mg tabletIndicatio ns:Chronic midline low back pain without sciatica Take 1 tablet (15 mg total) by mouth daily 30 tablet 5 Active busPIRone (BUSPAR) 5 mg tablet Take 1 tablet (5 mg total) by mouth 3 (three) times a day 5 Active valACYclovir (VALTREX) 500 mg tablet Take 1 tablet (500 mg total) by mouth daily 90 tablet 1 06/30/202 5 Active Active Problems Problem Noted Date Diagnosed Date BMI 21.0-21.9, adult 01/10/2025 Assessment & Plan (01/10/2025 5:11 PM CDT): Weight/BMI is in healthy range. Continue healthy lifestyle to maintain. Chronic midline low back pain without sciatica 0 11/06/2024 Assessment & Plan (01/23/2025 11:08 PM CDT): Continue under the care of Pain Management. Assessment & Plan (11/06/2024 1:03 AM CDT): [...] (04/11/2024 12:36 PM CDT): Patient saw a water meter mechanic and told the rash was eczema. Has [...] tried IBU/NSAID so suggest starting there. Offered JUILAN but he declined at this point. If persists he is to followup. Gastroesophageal reflux disease without esophagi tis 09/10/2020 Assessment & Plan (10/29/2020 11:23 AM CDT): Continue PPI Assessment & Plan (09/10/2020 9:45 AM COMMERCIAL LOAN ASSISTANT): Discussed GERD at length including anatomy, behavioral changes (raise HOB, meal timings), dietary changes and medication options. Reviewed risks, benefits alternatives, side effects and proper use. Followup if sxs worsen or has hematochezia or hematemeis. Vertigo 08/19/2020 Assessment & Plan (09/10/2020 9:45 AM COMMERCIAL LOAN ASSISTANT): Improving with the vestibular therapy Assessment & Plan (08/19/2020 2:12 PM COMMERCIAL LOAN ASSISTANT): Patient has sxs consistent with vertigo. Unable [...] depressive d isorder 01/10/2019 Assessment & Plan (01/23/2025 11:07 PM CDT): Continue with psychiatry and counselor. Continue medication as managed by psychiatry Assessment & Plan (11/06/2024 1:00 AM CDT): [...] he also declines. Discussed going to the [facility] walk-in clinic to be evaluated and discuss [...] He has a psychiatry appointment tomorrow in [facility]. He is frustrated because he feels like [...] hours because these visits are located in [facility] and [place], [place]. Advised he could increase the BuSpar [...] assistance. Provided name and contact information at [facility] further same-day behavioral/mental health clinic as this is always available for evaluation as a walk in. He was thankful for the information will contact if he needs more assistance Assessment & Plan (05/18/2023 1:28 PM COMMERCIAL LOAN ASSISTANT): Patient has discontinued all his mental health [...] tid Assessment & Plan (09/10/2020 9:45 AM COMMERCIAL LOAN ASSISTANT): See anxiety Assessment & Plan (01/10/2019 10:54 PM CDT): Pt is tearful and depressed today. Wiling to start medication. No Suicidal ideations. Reviewed risks, benefit, alternatives, side effects and proper use. Start lexapro. Situational anxiety 01/10/2019 Assessment & Plan (01/23/2025 11:07 PM CDT): Continue with psychiatry and counselor. Continue medication as managed by psychiatry Assessment & Plan (10/31/2022 10:15 PM CDT): [...] tid Assessment & Plan (09/10/2020 9:45 AM COMMERCIAL LOAN ASSISTANT): Start buspar 7.5tid Reviewed risks, benefit, alternatives, side effects and proper use. Assessment & Plan (08/19/2020 2:10 PM COMMERCIAL LOAN ASSISTANT): Discussed medication for anxiety. Declines at this time. Assessment & Plan (01/10/2019 10:57 PM CDT): See depression plan. 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 Assessment & Plan (01/23/2025 11:08 PM CDT): Continue valtrex daily for suppression therapy Assessment & Plan (04/11/2024 12:35 PM CDT): [...] 03/31/2024 Assessment & Plan (05/18/2023 1:28 PM COMMERCIAL LOAN ASSISTANT): Neck pain seems to be continuing to [...] 023 Assessment & Plan (09/18/2022 3:28 PM COMMERCIAL LOAN ASSISTANT): Weight/BMI is in healthy range. Continue healthy lifestyle. BMI 21.0-21.9, adult 10/15/2021 023 Assessment & Plan (10/15/2021 1:35 PM CDT): Weight/BMI is in healthy range. Continue healthy lifestyle to maintain. Need for Tdap vaccination 02/24/2021 Assessment & Plan (02/24/2021 11:35 PM CDT): Updated in office BMI 20.0-20.9, adult 02/20/2021 025 Assessment & Plan (10/21/2024 7:38 AM CDT): Weight/BMI is in healthy range. Continue healthy lifestyle to maintain. Assessment & Plan (02/20/2021 11:58 AM CDT): Weight/BMI is in healthy range. Continue healthy lifestyle to maintain. Penile lesion 08/19/2020 03/31/2024 Assessment & Plan (09/17/2020 7:34 PM COMMERCIAL LOAN ASSISTANT): Already on Valtrex. Will try a little lotrisone to the area as may be a yeast component. If persists, will need an appointment for exam. May consider HSV antibodies. Denies STD/he is not high risk. Assessment & Plan (08/19/2020 2:09 PM COMMERCIAL LOAN ASSISTANT): Check HSV IGg and IGM for TypeI and Type II. (HERPES SELECT) Continue valtrex. BMI 20.0-20.9, adult 10/21/2019 021 Assessment & Plan (09/10/2020 9:45 AM COMMERCIAL LOAN ASSISTANT): Weight/BMI is in healthy range. Continue healthy lifestyle to maintain. Conjunctivitis 10/21/2019 03/31/2024 Assessment & Plan (10/21/2019 11:34 AM CDT): Conjunctivitis vs abrasion. Will treat with antibiotic drops. 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 Call if sxs worsen or don't resolve. 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 Assessment & Plan (10/15/2021 2:06 PM CDT): Continue Valtrex 500 mg 1 daily Has not had an outbreak in a long time Assessment & Plan (09/10/2020 9:45 AM COMMERCIAL LOAN ASSISTANT): Increase to valtrex 1gm daily Possible exposure to STD 01/30/2016 Dysuria 01/30/2016 04/11/2024 Chicken pox 02/06/2009 08/19/2020 Overview (06/01/2018): Overview: 1998 Chicken pox 02/06/2009 03/31/2024 Overview (06/03/2022): 1998 Encounters Date Type Department Care Team Description 02/03/2025 Telephone [facility] Medicine [address] [place] [phone] Ellie Weber PA Medical Question/Miscellaneous 02/02/2025 Results Follow-Up [address] [phone] Ellie Weber PA CBC with auto differential, TSH, Comprehensive metabolic panel, Additional followed-up results: 4 from Last 3 Months Immunizations Immunization Administration Dates Next Due DTP / HiB 07/13/1996 DTaP 04/11/1998, 7,07/13/1996,10/25,03/08/1994 Hep A, Pediatric 02/06/2009,02/08/2008 Hep B, Adolescent or Pediatric 07/13/1996,1993,1993 Hib (PRP-D) 07/13/1996,10/25/1994,03/08/1994 Influenza, Unspecified 07/14/2024(Deferr ed: Patient Refused),07/14/2024(Deferred: Patient Refused),07/14/2023(Deferred: Patient Refused),07/14/2023(Deferred: Patient Refused),05/06/2023(Deferred: Patient Refused),07/14/2022(Deferred: Patient [...] more points, staff should administer the PHQ-9) 1 01/10/2025 PHQ-9 Answer Date Recorded PHQ-9 Total Score 21 10/21/2024 Sex and Gender Information Value Date Recorded Sex Assigned at Not on file Legal Sex Male 12:13 PM COMMERCIAL LOAN ASSISTANT Gender Identity Not on file Sexual Orientation Not on file Obstetrics History Last Filed Vital Signs Vital Sign Reading Time Taken Comments Blood Pressure 100/60 01/10/2025 5:04 PM CDT Pulse 71 01/10/2025 5:04 PM CDT Temperature 36.6 C (97.9 F) 01/10/2025 5:04 PM CDT Respiratory Rate 16 10/12/2024 8:06 AM CDT Oxygen Saturation 98% 01/10/2025 5:04 PM CDT Inhaled Oxygen Concentration - - Weight 69.4 kg (153 lb) 01/10/2025 5:04 PM CDT Height 180.3 cm (5' 11) 01/10/2025 5:04 PM CDT Body Mass Index 21.34 01/10/2025 5:04 PM CDT Plan of Treatment Health Maintenance Due Date Last Done Comments Hepatitis C Screening 1995 HPV Vaccines (1 - 3-dose SCDM series) 2020 Influenza Vaccine (#1) 2025 Regular Well Visit/Exam 18-64 03/31/2025 03/31/2024, 10/31/2022, 10/15/2021 Depression Screening 01/10/2026 01/10/2025, 10/21/2024, 10/21/2024, Additional history exists DTaP/Tdap/Td Vaccine (8 - Td or Tdap) 02/20/2031 02/20/2021, 02/09/2007, 04/11/1998, Additional history exists Hepatitis B Screening Completed 07/13/1996 , 1993, 1993 Pneumococcal vaccine <65 Aged Out No longer eligible based on patient's age to complete this topic Insurance [employer] [place] [employer] [place] [facility] Care Teams Injection Molding Machine Offbearer Relationship Specialty Start Date End Date Ellie Weber PA [address] [facility] [address] [place] [address] PCP - General Internal Medicine 12/11/18
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
--- OUTSIDE RECORDS SUMMARY | 2025-05-05 23:51 | XMS_ITS | Clinical Summary ---
Author Organization [facility] Address [address] [facility] [place] [address] Care Team Providers Care Clothing Sales Assistant Name Role Phone Ellie Weber PA-C Primary Care Provider +1 -[phone] Source Comments [facility] Affiliates and Associated Physician Practices is amultiple site organization consisting of ambulatory clinics and hospital sitesin [place], [place], [place] and [place]. This disclosure is being madepursuant to the Care Everywhere program and may not contain all information available regarding this patient. Last updated 18.[facility] Allergies Active Allergy Reactions Criticality Noted Date [...] on file Legal Sex Male 7:41 AM CLOUD SUBJECT MATTER EXPERT Gender Identity Not on file Sexual Orientation [...] CDT 09/25/2016 Narrative Resulting Agency Comment [facility] [address] [facility] [id number] us Martin Ngo MD LAB - SEROLOGY ORDERABLES Final Result [facility] ACCOUNT BILL [address] [place] [address] from Last 3 Months or Most Recently Relevant to Health Maintenance Insurance [employer] [place], [place] [address]EM PAYOR GENERIC * Guarantor: [employer] Account Type Relation to Patient Date of Phone Billing Address Personal/Family 1995 Roselia ORTIZ [address] [place] [address] Care Teams Clothing Sales Assistant Relationship Specialty Start Date End Date Ellie Weber PA-C [address] [phone] PCP - General Physician Blindstitch Lining Feller 02/07/22
[2025-05-05] MEDS: dexAMETHasone SOD PHOS INJ 10 MG/ML 1 ML VIAL IM (23:52)
[2025-05-05] MEDS: KETOROLAC 30 MG/ML VIAL (*BKC) IM (23:52)
--- OUTSIDE RECORDS SUMMARY | 2025-05-05 23:52 | XMS_ITS | Encounter Summary ---
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
--- OUTSIDE RECORDS SUMMARY | 2025-05-05 23:52 | XMS_ITS | Clinical Summary ---
Author Organization [facility] Address [address] [place] [id number] Care Team Providers Care Cargo Router Name Role Phone Ellie Weber Primary Care Provider [phone]- [phone] Allergies Active Allergy Reactions Criticality Noted Date [...] (04/11/2024 12:36 PM CDT): Patient saw a sparmaker and told the rash was eczema. Has [...] PPI Assessment & Plan (09/10/2020 9:45 AM HOUSE FURNISHINGS SUPERVISOR): Discussed GERD at length including anatomy, behavioral changes (raise HOB, meal timings), dietary changes and medication options. Reviewed risks, benefits alternatives, side effects and proper use. Followup if sxs worsen or has hematochezia or hematemeis. Vertigo 08/19/2020 Assessment & Plan (09/10/2020 9:45 AM HOUSE FURNISHINGS SUPERVISOR): Improving with the vestibular therapy Assessment & Plan (08/19/2020 2:12 PM HOUSE FURNISHINGS SUPERVISOR): Patient has sxs consistent with vertigo. [...] he also declines. Discussed going to the [facility] walk-in clinic to be evaluated and [...] has a psychiatry appointment tomorrow in [facility]. He is frustrated because he feels like [...] hours because these visits are located in [facility] and [place], [place]. Advised he could increase the BuSpar [...] assistance. Provided name and contact information at [facility] further same-day behavioral/mental health clinic as this is always available for evaluation as a walk in. He was thankful for the information will contact if he needs more assistance Assessment & Plan (05/18/2023 1:28 PM HOUSE FURNISHINGS SUPERVISOR): Patient has discontinued all his mental [...] tid Assessment & Plan (09/10/2020 9:45 AM HOUSE FURNISHINGS SUPERVISOR): See anxiety Assessment & Plan (01/10/2019 [...] tid Assessment & Plan (09/10/2020 9:45 AM HOUSE FURNISHINGS SUPERVISOR): Start buspar 7.5tid Reviewed risks, benefit, alternatives, side effects and proper use. Assessment & Plan (08/19/2020 2:10 PM HOUSE FURNISHINGS SUPERVISOR): Discussed medication for anxiety. Declines at [...] 03/31/2024 Assessment & Plan (05/18/2023 1:28 PM HOUSE FURNISHINGS SUPERVISOR): Neck pain seems to be continuing [...] 023 Assessment & Plan (09/18/2022 3:28 PM HOUSE FURNISHINGS SUPERVISOR): Weight/BMI is in healthy range. Continue [...] 03/31/2024 Assessment & Plan (09/17/2020 7:34 PM HOUSE FURNISHINGS SUPERVISOR): Already on Valtrex. Will try a little lotrisone to the area as may be a yeast component. If persists, will need an appointment for exam. May consider HSV antibodies. Denies STD/he is not high risk. Assessment & Plan (08/19/2020 2:09 PM HOUSE FURNISHINGS SUPERVISOR): Check HSV IGg and IGM for TypeI and Type II. (HERPES SELECT) Continue valtrex. BMI 20.0-20.9, adult 10/21/2019 021 Assessment & Plan (09/10/2020 9:45 AM HOUSE FURNISHINGS SUPERVISOR): Weight/BMI is in healthy range. Continue healthy lifestyle to maintain. Conjunctivitis 10/21/2019 03/31/2024 Assessment & Plan (10/21/2019 11:34 AM CDT): Conjunctivitis vs abrasion. Will treat with antibiotic drops. 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 Call if sxs worsen or don't resolve. 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 Assessment & Plan (10/15/2021 2:06 PM CDT): Continue Valtrex 500 mg 1 daily Has not had an outbreak in a long time Assessment & Plan (09/10/2020 9:45 AM HOUSE FURNISHINGS SUPERVISOR): Increase to valtrex 1gm daily Possible exposure to STD 01/30/2016 Dysuria 01/30/2016 04/11/2024 Chicken pox 02/06/2009 08/19/2020 Overview (06/01/2018): Overview: 1998 Chicken pox 02/06/2009 03/31/2024 Overview (06/03/2022): 1998 Encounters Date Type Department Care Team Description 02/03/2025 Telephone [facility] Medicine [address] [place] [phone] Ellie Weber PA Medical Question/Miscellaneous 02/02/2025 Results Follow-Up [address] [phone] Ellie Weber PA CBC with [...] on file Legal Sex Male 12:13 PM HOUSE FURNISHINGS SUPERVISOR Gender Identity Not on file Sexual [...] patient's age to complete this topic Insurance [employer] [place] [facility] Care Teams Cargo Router Relationship Specialty Start Date End Date Ellie Weber PA [address] [facility] [address] [place] [address] PCP - General Internal Medicine 12/11/18
--- OUTSIDE RECORDS SUMMARY | 2025-05-05 23:52 | XMS_ITS | Encounter Summary ---
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
[2025-05-06] MEDS: HYDROcodone/acetaminophen (*CRX) 5-325 MG TABLET 1 TAB PO (00:51)
[2025-05-06 00:55] VITALS: BP 127/76; PULSE 76; RESP 16; TEMP 36.6; O2SAT 98
== END 2025-05-06 00:56 | disposition home or self-care (01) ==
PROVIDERS: Emergency Provider Student in an Organized Health Care Education/Training Program; PCP Physician Assistant
DX: M54.9 Dorsalgia, unspecified (principal); X50.1XXA Overexertion from prolonged static or awkward postures, initial encounter
CPT/HCPCS: 96372; 99284; A9270; J1100; J1885

== ENCOUNTER 2025-05-12 12:15 | Emergency (ER) | payer BC, SELFPAY ==
--- OUTSIDE RECORDS SUMMARY | 2025-03-15 03:15 | XMS_ITS ---
Author Organization [facility] [employer] [facility] Address [facility] [facility] [address] [place] [address] Care Team Providers Care Corrugator Operator Name Role Phone Deshaun Spears [phone] REASON FOR VISIT 1 month f/u Social History Sex Assigned At : Social History Observation Description Sex Assigned At Male Encounters Encounter Location Date Provider Diagnosis [facility] [employer] [facility], Walk[address] [place] [address] 03/15/2025 Deshaun Spears Plan Of Treatment Next Appt Details Provider Name:Sanjuana Martinez alvaro, 05/18/2025 01:00:00 PM, [address], [facility] [address], [place], [address], Progress Notes * JOSE J PRIESTEDOB: 4 (29 yo M)Acc No.[id number]:03/15/2025 Patient: Catherine MANCERASPENCER Provider: EIMLY Mena :1995 A ge:29 Y S ex:Male Date:03/15/2025 Phone: Address:[address] [facility] [address] [place], [id number] Subjective: * Chief Complaints: * 1 month f/u * HPI: T ransition of Care: 11/25/24 start buspar 5 mg BID - continue therapy - start fluoxetine 10 mg daily - calm aid discussed - increase buspar to 5 mg TID - continue therapy 01/06/25 - buspar 5 MG TID - start Fluoxetine 10 mg daily - start hydroxyzine 25 mg PRN - continue therapy with Sanjuana 01/21/2025- increase buspar to 7.5 mg BID- refill fluoxetine 10 mg daily- start hydroxyzine 25 mg PRN - continue therapy with Sanjuana 02/14/25- continue buspar 7.5 mg BID- continue therapy with sanjuana-continue fluoxetine 10 mg daily. Billing Information: * Procedure Codes: * Electronic signature of EMILY Ureña on 05/12/2025 at 01:03 PM CDT Sign off status: Pending * Provider: EMILY Mena Date: 0 03/15/2025 Generated for Cl dobson/Chiki/Yvon on: 01:03 PM CDT
--- OUTSIDE RECORDS SUMMARY | 2025-04-11 05:30 | XMS_ITS ---
Author Organization [facility] [employer] [facility] Address [facility] [address] [place] [address] Care Team Providers Care Supplier Diversity Director Name Role Phone Deshaun Spears [phone] REASON FOR VISIT follow-up Social History Sex Assigned At : Social History Observation Description Sex Assigned At Male Encounters Encounter Location Date Provider Diagnosis [facility] [employer] [facility], Walkin [address] [place] [address] 04/11/2025 Deshaun Spears Plan Of Treatment Next Appt Details Provider Name:Sanjuana Martinez alvaro, 05/18/2025 01:00:00 PM, [address], [facility] [address], [place], [address], Progress Notes * JOSE J PRIESTEDOB: 4 (29 yo M)Acc No.[id number]:04/11/2025 Patient: Catherine MARIASPENCER Rios Provider: EMILY Mena :1995 A ge:29 Y S ex:Male Date:04/11/2025 Phone: Address:[address] [facility] [address] [place], [id number] Subjective: * Chief Complaints: * F ollow-up Billing Information: * Procedure Codes: * Electronic signature of EMILY Ureña on 05/12/2025 at 01:04 PM CDT Sign off status: Pending * Provider: EMILY Mena Date: 0 04/11/2025 Generated for Cl dobson/Chiki/Yvon on: 1 01:04 PM CDT
--- OUTSIDE RECORDS SUMMARY | 2025-04-14 03:00 | XMS_ITS ---
Author Organization [facility] Address [address] [place] [address] [address] Care Team Providers Care Diesel Engine Erector Name Role Phone Deshaun Spears Unavailable [phone] Sanjuana Toure [phone] REASON FOR VISIT 1 week follow up Social History Sex Assigned At : Social History Observation Description Sex Assigned At Male Encounters Encounter Location Date Provider Diagnosis [facility] [employer] [facility], Walkin [address] [facility] [address] [place] [address] 04/14/2025 Sanjuana Toure Plan Of Treatment Next Appt Details Provider Name:Sanjuana john, 05/18/2025 01:00:00 PM, [address], [facility] [address], [place], [address], History and Physical Notes * HPI (History of Present Illness) Category Sub-Category Detail Notes Category Not es Depression screening PHQ-9 Little inte rest or pleasure in doing things: Nearly every day Feeling down, depressed, or hopeless: Ne karissa every day Trouble falling or staying asleep, or sl eeping too much: Nearly every day Feeling tired or having little energy: N early every day Poor appetite or overeating: More than h tanner the days Feeling bad about yourself o r that you are a failure, or have let yourself or your family down: Nearly every day Trouble concentrating on thi ngs, such as reading the newspaper or watching television: More than half the days Moving or speaking so slowly that other people could have noticed; or the opposite, being so fidgety or restless that you have been moving around a lot more than usual: Several days Thoughts that you would be b lashanda off or of hurting yourself in some way: Several days (Consider Suicide Assessment Risk) Progress Notes * JEET PRIESTOB: 4 (29 yo M)Acc No.[id number]:04/14/2025 Patient: SPENCER BRYANT Provider: Catherine Toure :1995 A ge:29 Y S ex:Male Date:04/14/2025 Phone: Address:[address] [facility] , [address], [place], [id number] Check In:08:16 AM CSTCheck O ut:08:19 AM CHAIRMAN CEO Data: * Time Tracker: * Date Start Time End Time Duration User Type Captured By Mode Notes 04/14/2025 08:15 AM 08:15 AM 00:00:22 Therapist Adan Toure Timer 04/14/2025 08:16 AM 08:19 AM 00:02:59 Therapist Adan Toure Timer * Chief Complaints: * 1 week follow up * HPI: D epression screening: PHQ-9 L ittle interest or pleasure in doing things?Nearly every day F eeling down, depressed, or hopeless N early every day T rouble falling or staying asleep, or sleeping too much N early every day F eeling tired or having little energy N early every day P oor appetite or overeating M ore than half the days F eeling bad about yourself or that you are a failure, or have let yourself or your family down N early every day T rouble concentrating on things, such as reading the newspaper or watching television M ore than half the days M oving or speaking so slowly that other people could have noticed; or the opposite, being so fidgety or restless that you have been moving around a lot more than usual S everal days T houghts that you would be better off or of hurting yourself in some way S everal days (Consider Suicide Assessment Risk) Billing Information: * Procedure Codes: * Electronic signature of Adan Toure LCPC on 05/12/2025 at 01:03 PM CDT Sign off status: Pending Signatures: No Ad Hoc Signature Added * Provider: Catherine Toure Date: 1 Generated for Cl Fragoso on: 01:03 PM CDT
--- OUTSIDE RECORDS SUMMARY | 2025-04-14 04:15 | XMS_ITS ---
Author Organization [facility] [facility] Address [address] [place] [address] Care Team Providers Care Materials Branch Chief Name Role Phone Deshaun Spears [phone] REASON FOR VISIT no insurance Social History Sex Assigned At : Social History Observation Description Sex Assigned At Male Encounters Encounter Location Date Provider Diagnosis [facility] [employer] [facility], Walkin [address] [place] [address] 04/14/2025 Deshaun Spears Plan Of Treatment Next Appt Details Provider Name:Sanjuana Martinez alvaro, 05/18/2025 01:00:00 PM, [address], [facility] [address], [place], [address], Progress Notes * JOSE J PRIESTEDOB: 4 (29 yo M)Acc No.[id number]:04/14/2025 Patient: Catherine MANCERASPENCER Provider: EMILY Mena :1995 A ge:29 Y S ex:Male Date:04/14/2025 Phone: Address:[address] [facility] [address] [place], [id number] Subjective: * Chief Complaints: * N o insurance Billing Information: * Procedure Codes: * Electronic signature of EMILY Ureña on 05/12/2025 at 01:03 PM CDT Sign off status: Pending * Provider: EMILY Mena Date: Generated for Cl dobson/Chiki/eTransmitting on: 1 01:03 PM CDT
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
--- OUTSIDE RECORDS SUMMARY | 2025-05-12 11:45 | XMS_ITS | Encounter Summary ---
Author Organization [facility] Healthcare Address [address] [place] [address] Care Team Providers Care Ground Operations Supervisor Name Role Phone Ellie Weber Primary Care Provider [phone]- [phone] Reason for Visit * Reason Comments Eye Pain Left eye pain, water ing. Symptoms since this morning. 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 Gender Identity Not on file Sexual Orientation Not on file documented as of this encounter Last Filed Vital Signs Vital Sign Reading Time Taken Comments Blood Pressure 98/67 05/12/2025 11:30 AM CDT Pulse 68 05/12/2025 11:30 AM CDT Temperature 36.9 C (98.4 F) 05/12/2025 11:30 AM CDT Respiratory Rate 18 05/12/2025 11:30 AM CDT Oxygen Saturation 99% 05/12/2025 11:30 AM CDT Inhaled Oxygen Concentration - - Weight 69.4 kg (153 lb) 05/12/2025 11:30 AM CDT Height - - Body Mass Index 21.34 01/10/2025 5:04 PM CDT documented in this encounter Progress Notes * Ashley Bray, PROJECT PROGRAM MANAGER - 05/12/2025 11:45 AM CDT Images from the original note were not included. Subjective/Objective Patient ID: Dora Hampton is a 29 y.o. male. This patient has verbally consented to recording this visit in order to utilize AI technology in generating this note. Chief Complaint Eye Pain (Left eye pain, watering. Symptoms since this morning. /) History of Present Illness Dora Hampton is a 29 year old male who presents with severe left eye pain following a recent sinus infection. He has severe pain in his left eye, describing it as 'hurts like hell.' The pain started two days ago, initially located above the eye in the eyebrow area, and has since spread to involve the entire eye. He rates the pain as a 7 out of 10 and describes it as grabbing and aching. The pain is exacerbated by eye movement and is associated with photophobia. No changes in vision, flashes of light, or floaters. However, his eye became watery this morning. He denies any history of eye injury, surgery, or contact lens use, but he does wear glasses. He has a recent history of sinus infection, for which he was seen two days ago. During the review of symptoms, he confirms the absence of any foreign body sensation or need to rub the eye. Review of Systems All other systems reviewed and are negative. Physical Exam HEENT: No rash, redness, or bruising in the eyes. Sinus tenderness on palpation. Physical Exam Vitals reviewed. Constitutional: General: He is not in acute distress. Appearance: Normal appearance. He is not ill-appearing. HENT: Head: Normocephalic. Mouth/Throat: Lips: [place]. Eyes: General: Lids are normal. Right eye: No foreign body, discharge or hordeolum. Left eye: Discharge (watery) present.No foreign body or hordeolum. Extraocular Movements: Extraocular movements intact. Right eye: Normal extraocular motion and no nystagmus. Left eye: Normal extraocular motion and no nystagmus. Conjunctiva/sclera: Conjunctivae normal. Right eye: Right conjunctiva is not injected. No chemosis, exudate or hemorrhage. Left eye: Left conjunctiva is not injected. No chemosis, exudate or hemorrhage. Comments: There is pain with palpation above patient's left eye and directly over eyelid on left eye, this made the patient pull his head away and state that it hurts too bad to touch. There is no rash, redness, swelling, or bruising seen. --Discuss the Wood's lamp exam, patient declined exam in the CC Cardiovascular: Rate and Rhythm: Normal rate. Pulmonary: Effort: Pulmonary effort is normal. Breath sounds: Normal breath sounds. Skin: General: Skin is warm. Neurological: Mental Status: He is alert and oriented to person, place, and time. Psychiatric: Mood and Affect: Mood normal. Vitals: 05/12/25 1130 BP: 98/67 Pulse: 68 Resp: 18 Temp: 36.9 ??C (98.4 ??F) TempSrc: Continuous Temporal Temperature SpO2: 99% Weight: 69.4 kg (153 lb) Vision Screening Right eye Left eye Both eyes Without correction 20/20 20/20 20/20 With correction Past Medical History: Diagnosis Date Depression Migraines STD (sexually transmitted disease) Current Outpatient Medications: amoxicillin-clavulanate (AUGMENTIN) 875-125 mg per tablet, Take 1 tablet by mouth 2 (two) times a day for 7 days, Disp: 14 tablet, Rfl: 0 busPIRone (BUSPAR) 5 mg tablet, Take 1 tablet (5 mg total) by mouth 3 (three) times a day (Patient not taking: Reported on 05/12/2025), Disp: , Rfl: fluocinolone (DERMA-SMOOTH/FS) 0.01 % oil, APPLY TOPICALLY TO SCALP SPARINGLY EVERY DAY NEEDED FOR FLARES, Disp: , Rfl: FLUoxetine (PROzac) 20 mg capsule, 1 capsule (20 mg total) daily, Disp: , Rfl: FLUoxetine 10 mg capsule, Take 1 tablet/capsule (10 mg total) by mouth daily (Patient not taking: Reported on 05/12/2025), Disp: , Rfl: hydrocortisone 1 % cream, APPLY TOPICALLY TO THE AFFECTED AREA FOUR TIMES DAILY, Disp: , Rfl: ketoconazole (NIZORAL) 2 % shampoo, USE TO WASH SCALP EVERY DAY, Disp: , Rfl: meloxicam (MOBIC) 15 mg tablet, Take 1 tablet (15 mg total) by mouth daily (Patient not taking: Reported on 05/10/2025), Disp: 30 tablet, Rfl: 0 triamcinolone (KENALOG) 0.1 % cream, Apply topically 2 (two) times a day for [address] on face around eyes or on genitals, Disp: 30 g, Rfl: 0 valACYclovir (VALTREX) 500 mg tablet, Take 1 tablet (500 mg total) by mouth daily, Disp: 90 tablet,Rfl: 1 Allergies Allergen Reactions Meloxicam Headache Similar to a migraine, as of 02-15-22. Social History Tobacco Use Smoking status: Never Smokeless tobacco: Never Substance and Sexual Activity Drug use: Yes Types: Marijuana Comment: in the past Sexual activity: Yes Partners: Female Alcohol Use: Not At Risk (10/21/2024) AUDIT-C Frequency of Alcohol Consumption: 2-3 times a week Average Number of Drinks: 1 or 2 Frequency of Binge Drinking: Never History reviewed. No pertinent surgical history. Assessment/Plan 1. Acute left eye pain (Primary) Results Assessment & Plan Acute severe right eye pain Acute severe right eye pain, likely related to recent sinusitis. Differential includes corneal abrasion and infectious causes. - Advise immediate ER evaluation for further investigation, including potential deeper eye examination or CT scan. - Wood's lamp exam declined in office - Given severity of eye pain specifically with palpation over eye, but also at rest; sending patient to higher level to have further eye exam done. Patient verbalized understanding Education --GO TO ER Disposition Treatment plan including expectations, follow up, and return precautions discussed with patient/parent, verbalizes understanding. Medication dosage, use, and potential adverse reactions discussed with patient/parent. Advised to follow up with PCP if symptoms do not resolve as expected or sooner if condition worsens. Signs/symptoms warranting ER evaluation reviewed. Patient and/or guardian was given an opportunity to ask questions, questions answered. Ashley Bray NP This office note has been partially dictated using Surf[employer] software, and as a result portions of the record may have been created with this software. Occasional wrong-word or 'tyztn-h-lzyc' substitutions may have occurred due to the inherent limitations of voice recognition software. Read the chartcarefully and recognize, using context, where substitutions have occurred. documented in this encounter Plan of Treatment Not on file documented as of this encounter Visit Diagnoses Diagnosis Acute left eye pain- Primary documented in this encounter Historical Medications * This list may reflect changes made after this encounter. FLUoxetine (PROzac) 20 mg capsule 1 capsule (20 mg total) daily FLUoxetine 10 mg capsule Take 1 tablet/capsule (10 mg total) by mouth daily 03/06/2025 added in this encounter Care Teams Ground Operations Supervisor Relationship Specialty Start Date End Date Ellie Weber PA [address] [facility] [address] [place] [address] PCP - General Internal Medicine 12/11/18 documented as of this encounter
--- OUTSIDE RECORDS SUMMARY | 2025-05-12 11:45 | XMS_ITS | Encounter Summary ---
Author Organization [facility] Healthcare Address [address] [place] [address] Care Team Providers Care Airline Pilot Flight Instructor Name Role Phone Ellie Weber Primary Care Provider [phone]- [phone] Reason for Visit * Reason Comments Eye Pain Left eye pain, water ing. Symptoms since this morning. 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 HENT: Head: Normocephalic. Mouth/Throat: Lips: [place]. Eyes: General: Lids are normal. Right eye: [...] office note has been partially dictated using [employer] software, and as a result portions of the record may have been created with this software. Occasional wrong-word or 'lgosp-k-tgry' substitutions may have occurred due to the [...] 03/06/2025 added in this encounter Care Teams Airline Pilot Flight Instructor Relationship Specialty Start Date End Date Ellie Weber PA [address] [facility] [address] [place] [address] PCP - General Internal Medicine 12/11/18 documented as of this encounter
[2025-05-12 12:18] VITALS: BP 154/100; PULSE 68; RESP 18; TEMP 36.7; O2SAT 100
--- OUTSIDE RECORDS SUMMARY | 2025-05-12 13:03 | XMS_ITS | Clinical Summary ---
Author Organization [facility] [employer] Address [address] [facility] [place] [address] Care Team Providers Care Puttier Name Role Phone Ellie Weber PA-C Primary Care Provider [phone] [phone] Source Comments [facility]-research psychiatric center Affiliates and Associated Physician Practices is amultiple site organization consisting of ambulatory clinics and hospital sitesin [place], [place], [place] and [place]. This disclosure is being madepursuant to the Care Everywhere program and may not contain all information available regarding this patient. 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 Gender Identity Not on file Sexual [...] CDT 09/25/2016 Narrative Resulting Agency Comment [facility] [address] [facility] [id number] us Martin Ngo MD LAB - SEROLOGY ORDERABLES Final Result [facility] ACCOUNT BILL [address] [place] [address] from Last 3 Months or Most Recently Relevant to Health Maintenance Insurance [address] [place], [place] [address]EM PAYOR GENERIC * Guarantor: [employer] Account Type Relation to Patient Date of Phone Billing Address Personal/Family 1995 Roselia ORTIZ [address] [place] [address] Care Teams Puttier Relationship Specialty Start Date End Date Ellie Weber PA-C [address] [address] PCP - General Physician Practice Architect 02/07/22
--- OUTSIDE RECORDS SUMMARY | 2025-05-12 13:03 | XMS_ITS | Encounter Summary ---
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 Gender Identity Not on file Sexual Orientation Not on file documented as of this encounter Plan of Treatment Not on file documented as of this encounter Procedures Procedure Name Priority Date/Time Associated Diagnosis Comments SCAN - RADIOLOGY/IMAGING 01/19/2025 documented in this encounter Results * SCAN - RADIOLOGY/IMAGING (01/19/2025) Anatomical Region Laterality Modality Other us Provider Scanning Edited Result - Final documented in this encounter Visit Diagnoses Not on filedocumented in this encounter Care Teams Client Development Director Relationship Specialty Start Date End Date Ellie Weber PA [address] [facility] [address] [place] [address] PCP - General Internal Medicine 12/11/18 documented as of this encounter
--- OUTSIDE RECORDS SUMMARY | 2025-05-12 13:03 | XMS_ITS | Patient Health Record ---
Author Organization [facility] Address [address] [facility] [address] [place] [address] Care Team Providers Care Inspection Clerk Name Role Phone Ellie Husain Primary Care Provider Eduardo Chandra [phone] Allergies Allergen (clinical drug ingredient) Drug/Non Drug Allergy documented on EMR Reaction Allergy Type Onset Date Status meloxicam Meloxicam stomach upset Drug Allergy Act destin Results Component Value Reference Range Notes MR Wrist Right (Not yet revi ewed by provider) Interpretation: Performing Lab: Notes/Report: Original Report EXAMINATION: MR right wrist without contrast HISTORY: Kienbock disease of adults, right wrist pain. FINDINGS: MR images of the right wrist were performed on a 1.5 Natali magnet with a hand and wrist coil. Transverse T1 and proton density, coronal T1, T2 and gradient echo, and sagittal T2 images were obtained without contrast. Comparison radiographs of right wrist from 01/20/2025. Bone marrow signal intensity is normal. There is no fracture. Specifically, normal marrow signal of the lunate with no evidence for osteonecrosis of the lunate. Articular cartilage is normal. No joint effusion. No ganglion cyst. The scapholunate and lunotriquetral ligaments are normal in appearance. The triangular fibrocartilage appears normal. The extrinsic capsular ligaments are intact. The flexor and extensor tendons are intact without tendinopathy, tenosynovitis or tendon tear. The carpal tunnel is normal in appearance. There is a palmaris longus tendon. The median and ulnar nerves are normal in appearance. Muscle bulk and signal intensity of the hand are normal. IMPRESSION: 1. Normal MR of the right wrist with no evidence for lunate osteonecrosis. 2. Intact scapholunate and lunotriquetral ligaments with intact extrinsic ligaments right wrist. . Read by: JIGNESH JACOBSON MD Reviewed and Electronically Signed by: JIGNESH JACOBSON MD Xray (Not yet reviewed by froy zuluaga) Interpretation: Performing Lab: Notes/Report: Original Report EXAMINATION: RIGHT WRIST RADIOGRAPHS, 3 VIEWS Date: 01/20/2025 History: Pain Findings: There is no acute fracture or dislocation. The osseous density and joint spaces are normal. IMPRESSION: No acute osseous abnormality or significant degenerative changes. Read by: Dr. DIPESH ALLISON M.D. Reviewed and Electronically Signed by: Dr. DIPESH ALLISON M.D. Reason For Referral Reason Hand therapy -Laura tment Increase Range of motion Wrist stabilization supportive/facilitory taping prn Therapeutic Exercises Modalities prn Instruct in Home exercise program Diagnosis 1 Sprain of unspecifie d part of right wrist and hand, subsequent encounter (S63.91XD) Referral Organization [facility] bib Referring Provider First Name Eduardo Referring Provider Last Name Ginger Referring Provider Speciality Physical M edicine Referred Provider Janusz PT, Raymundo green/Semaj Garrido Referred Provider Specialty Physical The rapist Referral Priority Routine Medications Medication SIG (Take, Route, Fr equency, Duration) Notes Start Date End Date Status PROzac 20 MG 1 capsule Orally Once a day Active busPIRone HCl 10 MG 1 tablet Orally Twice a day Active Immunizations Vaccine Route Administration Date Status Comme nts DTaP Unknown 04/11/1998 Administered DTP-Hib Unknown 07/13/1996 Administered Hep A, ped/adol, 2 dose Unknown 02/08/2008 Administered Meningococcal MCV4P Unknown 02/09/2007 Administered MMR Unknown 03/17/1997 Administered MMR Unknown 04/11/1998 Administered Polio, UF Unknown 03/17/1997 Administered Polio, UF Unknown 04/11/1998 Administered Tdap Unknown 02/09/2007 Administered Problems Problem Type SNOMED Code ICD Code Onset Dates Problem Status W/U Status Risk Notes 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 Vital Signs Heart Rate 60 /min 03/31/2025 Temperature 98.0 degrees Fahrenheit 03/31/2025 Height-cm 180.34 cm 03/31/2025 Oximetry 98 % 03/31/2025 Blood pressure diastolic 60 mm Hg 03/31/2025 Weight-kg 68.04 kg 03/31/2025 Height 71 in 03/31/2025 Blood pressure systolic 110 mm Hg 03/31/2025 Weight 150 lbs 03/31/2025 BMI 20.92 kg/m2 03/31/2025 Encounters Encounter Location Date Provider Diagnosis [facility] [address] [place] [address] 01/20/2025 Eduardo Guzmanita Sprain of other part of left wrist and hand, initial encounter S63.8X2A and Kienbock's disease of adults M93.1 [facility] [address] [place] [address] 03/10/2025 Eduardo Ginger Sprain of other part of right wrist and hand, initial encounter S63.8X1A [facility] [address] [place] [address] 03/31/2025 Eduardo Ginger Sprain of unspecified part of right wrist and hand, subsequent encounter S63.91XD [facility] [address] [place] [address] 04/03/2025 [facility] [address] [place] [address] 04/28/2025 [facility] [address] [place] [address] 01/07/2025 [facility] [address] [place] [address] 01/25/2025 Eduardo Ginger Sprain of other part of left wrist and hand, initial encounter S63.8X2A ; Kienbock's disease of adults M93.1 and Sprain of other part of right wrist and hand, initial encounter S63.8X1A Assessments Encounter Date Diagnosis (ICD Code) Assessment Notes Treatment Notes Treatment Clinical Notes Section Notes 01/20/2025 Kienbock's disease of adults (ICD-10 - M93.1) I am concerned about a number of possible conditions that could be affecting his wrist. Differential includes Kienbock's, TFCC, perilunate ligament pathology/sprain . We will initate evaluation with films, further evaluation based on the findings 01/20/2025 Sprain of other part of left wrist and hand, initial encounter (ICD-10 - S63.8X2A) I am concerned about a number of possible conditions that could be affecting his wrist. Differential includes Kienbock's, TFCC, perilunate ligament pathology/sprain . We will initate evaluation with films, further evaluation based on the findings 01/25/2025 Kienbock's disease of adults (ICD-10 - M93.1) 01/25/2025 Sprain of other part of left wrist and hand, initial encounter (ICD-10 - S63.8X2A) 03/10/2025 Sprain of other part of right wrist and hand, initial encounter (ICD-10 - S63.8X1A) He underwent kinesio taping to stabilize the ulnar styloid and tendons He will call with his response in 5 days His MRI findings are unremarkable His physical exam suggests wrist instability and possible tendon involvement 03/31/2025 Sprain of unspecified part of right wrist and hand, subsequent encounter (ICD-10 - S63.91XD) 01/25/2025 Sprain of other part of right wrist and hand, initial encounter (ICD-10 - S63.8X1A) 03/10/2025 Other His MRI findings are unremarkable His physical exam suggests wrist instability and possible tendon involvement Plan Of Treatment Pending Test Test Name Order Date MRI : Wrist, right 01/25/2025 X ray : Wrist, right 01/20/2025 MR Wrist Right 02/27/2025 Xray 01/20/2025 Insurance Providers Payer Name Payer Address Payer Phone Subscriber Number Group Number Insured Name Patient Relationship to Insured Coverage Start Date Coverage End Date Work Amaya Harrington [address] [address] [place] [address] [id number] BertaBradleylala Self - patient is the insured [facility] [address] [place] [address] [id number] BertaBradleylala Self - patient is the insured
--- OUTSIDE RECORDS SUMMARY | 2025-05-12 13:04 | XMS_ITS | Patient Health Record ---
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 presents with depressive symptoms, including feelings of defeat and thoughts of being better off not here. PHQ-9 score of 16 indicates moderately severe depression. Patient initially resistant to antidepressants due to concerns about worsening suicidal ideation based on past experience with duloxetine (Cymbalta) 3 years ago. After discussion of alternative options, patient agreed to try fluoxetine (Prozac) at a low dose. Plan: - Start fluoxetine 10 mg PO daily - Informed patient about potential sexual side effects. - Educated patient on expected timeline for symptom improvement: emotional effects around 2 weeks, more significant improvements in 4-6 weeks - Discussed recommended duration of treatment (1 year when stable) and relapse risk if discontinued prematurely - Follow up in 2 weeks to assess response and tolerability - continue therapy with taiwo Insomnia Assessment: Patient reports significant difficulty falling asleep, often taking 2-3 hours to initiate sleep. Previous trials of melatonin have been ineffective. Insomnia likely secondary to depression. Plan: - Recommend CalmAid (lavender oil) as a non-pharmacologic al sleep aid - Anticipate improvement in sleep with initiation of fluoxetine for depression - sleep hygiene. The note is transcribed using speech recognition software. It is a reflection of a visit with the patient. It might have some inaccuracy, including medication names and transcribing errors, though efforts have been made to correct them. 01/06/2025 Other Hydroxyzine material was printed, Fluoxetine material was printed Major Depressive Disorder Assessment: Patient reports symptoms consistent with major depressive disorder, including decreased sex drive, sleep disturbances, lack of enjoyment, and passive suicidal thoughts. The patient also experiences mood fluctuations, with both high and low periods. Depression is impacting multiple areas of functioning, including work and family relationships. Previous treatments have included BuSpar for anxiety, which has provided some benefit. Plan: - Start fluoxetine 10 mg PO daily - Informed consent: Discussed potential side effects - Educated on expected timeline for improvement - Continue BuSpar 5 TID - Monitor for worsening of suicidal thoughts and discontinue fluoxetine if they occur - Follow up in 2 weeks - continue therapy with Taiwo Generalized Anxiety Disorder Assessment: Patient reports ongoing anxiety symptoms, with a recent panic attack approximately 1.5 weeks ago. The increase in BuSpar dosage has provided some relief, achieving a good balance according to the patient. However, anxiety continues to impact daily functioning and medication adherence, as evidenced by the patient's hesitation to start fluoxetine due to paranoia. Plan: - Continue BuSpar at current dose 5 mg TID - Start hydroxyzine for sleep and anxiety as needed - Educate on the safety profile of fluoxetine - Encourage stress-reduction techniques - continue therapy with Taiwo Alcohol Use Disorder Assessment: Patient reports strong cravings for alcohol, indicating a potential alcohol use disorder. This is complicated by the concurrent use of anxiety medication, which may interact with alcohol. The patient demonstrates awareness of the contraindication between alcohol and anxiety medication. Plan: - Educate on the risks of combining alcohol with psychiatric medications - Encourage abstinence from alcohol while on psychiatric medications - Consider referral to substance abuse counseling or support groups Insomnia Assessment: Patient reports ongoing sleep disturbances, likely secondary to depression and anxiety. Some improvement has been noted with anxiety medication, but sleep remains suboptimal. Plan: - Start hydroxyzine 25 mg PRN - Educate on sleep hygiene techniques - Monitor sleep quality at follow-up visits The note is transcribed using speech recognition software. It is a reflection of a visit with the patient. It might have some inaccuracy, including medication names and transcribing errors, though efforts have been made to correct them. 01/21/2025 Other 1. Major Depressive Disorder with Suicidal Ideation - PHQ-9 score 17 - Patient reports ongoing suicidal thoughts, about the same as previous visits. - No current plan or intent for self-harm. - Difficulty concentrating is present. - Plan: a. Continue fluoxetine 10 mg PO daily. b. Refill fluoxetine prescription. c. Follow up in 2 weeks. d. Crisis Prevention Hotline (043) provided for emergencies. e. educated patient on benefit of increasing medication, patient denied at time of visit. f. continue therapy with Taiwo. 2. Generalized Anxiety Disorder - Patient rates anxiety at 8/10. - EMY-7: 14 - No panic attacks reported. - Patient experiences paranoia, appearing to be excessive worry - Plan: a. Increase buspirone to 7.5 mg PO BID (Patient reports taking buspar 5 BID instead of TID) b. Trial hydroxyzine at bedtime for anxiety and sleep. C. continue therapy with Taiwo 3. Insomnia - Patient reports significant sleep disturbance, getting only 3-4 hours of sleep per night. - Plan: a. Recommend trial of hydroxyzine at bedtime. b. Discussed melatonin as an option for initiating sleep. c. Mentioned trazodone as a potential future option if needed. d. encouraged sleep hygiene e. discussed calm AID 6. Medication Management - Currently taking fluoxetine 10 mg daily (recently initiated). - Currently taking buspirone 5 mg TID. - Plan: a. Continue fluoxetine 10 mg PO daily. b. Increase buspirone to 7.5 mg PO BID. c. Discussed increasing fluoxetine to 20 mg daily (therapeutic dose) but he prefers to remain at 10 mg. Follow-up: - Schedule next appointment in 2 weeks. 02/14/2025 Other 1. Major Depressive Disorder - Patient reports improvement in depressive symptoms with fluoxetine. - Less irritability and clearer thinking noted. - Continues to experience episodes of zoning out and emotional breakdowns. - Recent suicidal ideation reported during a period of feeling overwhelmed last week. - Plan: a. Continue fluoxetine. b. Discuss potential dose increase of fluoxetine to 20mg for optimal therapeutic effect. c. Provide education on suicide prevention and crisis resources. d. Recommend ongoing psychotherapy for emotional support and coping strategies. e. Schedule follow-up appointment to reassess symptoms and medication efficacy. 2. Generalized Anxiety Disorder - Patient reports improvement in anxiety symptoms with current treatment. - Ability to think more clearly noted. - Continues to experience worry, particularly about skin condition. - Uses grounding techniques, particularly cold stimuli, to manage anxiety symptoms. - Plan: a. Continue current anxiety management plan. b. Encourage continued use of grounding techniques. c. Consider initiating hydroxyzine for as-needed anxiety management. d. Provide patient education on anxiety management strategies. 3. Sleep Disturbance - Patient reports recent improvement in sleep. - Previous night was the first instance of regular sleep. - Improvement coincides with initiation of fluoxetine. - Plan: a. Continue monitoring sleep patterns. b. Educate patient on sleep hygiene practices. c. Consider initiating melatonin if sleep disturbances persist. 4. Migraines - Patient reports experiencing migraines. - May be related to stress, anxiety, or other underlying factors. - Frequency and severity not specified. - Plan: a. Assess frequency and severity of migraines at next visit. b. Educate patient on migraine triggers and management strategies. c. Consider referral to neurology if migraines persist or worsen. 04/04/2025 Other 1. Major Depressive Disorder with Anxiety - Patient reports worsening depressive symptoms. - Current fluoxetine dose of 10mg is subtherapeutic . - Patient experiences significant anxiety, paranoia, and dissociation. - Plan: a. Increase fluoxetine to 20mg daily. b. Increase buspirone to 15mg twice daily. c. Add lithium 150mg at bedtime for 7 days. d. Continue therapy 2. Insomnia - Patient reports difficulty sleeping related to depression and anxiety symptoms. - Plan: a. encourage melatonin. b. Anticipate improvement with treatment of underlying depression and anxiety. 3. Suicidal Ideation - Patient reports current suicidal thoughts without specific plan or intent. - Plan: a. Provide crisis hotline information (245). b. encouraged inpatient hospitalizatio n c. start lithium 150 mg HS for 7 days d. provide 2 weeks of prescriptions to reduce access to medication. Plan Of Treatment Next Appt Details Provider Name:Taiwo Martinez alvaro, 05/18/2025 01:00:00 PM, [address] [facility] [address], [place], [address], Insurance Providers Payer Name Payer Address Payer Phone Subscriber Number Group Number Insured Name Patient Relationship to Insured Coverage Start Date Coverage End Date [facility] [address] [place] [address] [id number] [employer] Self - patient is the insured Medical (General) History Medical History History ICD Code Past Psychiatric History: Anxiety Disord er,Panic Disorder,PTSD abdominal aortic aneurysm: No atrial fibrillation: No chronic fatigue syndrome: No essential tremor: No hyperlipidemia: No hypertension: No Parkinson's disease: No restless leg syndrome: No stroke: No subdural hematoma: No type 1 diabetes mellitus: No type 2 diabetes mellitus: No vitamin B12 deficiency: No vitamin D deficiency: No Herpes simplex virus antibody positive Surgical History Surgery Date(Month/Year) denied surgical history Hospitalization History Reason Date(Month/Year) denied prior hospitalization
--- OUTSIDE RECORDS SUMMARY | 2025-05-12 13:04 | XMS_ITS | Clinical Summary ---
Author Organization [facility] Address [address] [place] [id number] Care Team Providers Care Die Cast Supervisor Name Role Phone Ellie Weber Primary Care Provider [phone]- [phone] Allergies Active Allergy Reactions Criticality Noted Date [...] by mouth daily 30 tablet 5 Active Additional Information Patient not taking.Reported on 05/10/2025 busPIRone (BUSPAR) 5 mg tablet Take 1 tablet (5 mg total) by mouth 3 (three) times a day 5 Active valACYclovir (VALTREX) 500 mg tablet Take 1 tablet (500 mg total) by mouth daily 90 tablet 1 06/30/202 5 Active amoxicillin-cla vulanate (AUGMENTIN) 875-125 mg per tabletIndicatio ns:Acute frontal sinusitis, recurrence not specified Take 1 tablet by mouth 2 (two) times a day for 7 days 14 tablet 5 05/17/20 25 Active FLUoxetine 10 mg capsule Take 1 tablet/capsule (10 mg total) by mouth daily 5 Active FLUoxetine (PROzac) 20 mg capsule 1 capsule (20 mg total) daily Active Active Problems Problem Noted Date Diagnosed [...] (04/11/2024 12:36 PM CDT): Patient saw a museum director and told the rash was eczema. Has [...] PPI Assessment & Plan (09/10/2020 9:45 AM OBSTETRICS GYNECOLOGY MD): Discussed GERD at length including anatomy, behavioral changes (raise HOB, meal timings), dietary changes and medication options. Reviewed risks, benefits alternatives, side effects and proper use. Followup if sxs worsen or has hematochezia or hematemeis. Vertigo 08/19/2020 Assessment & Plan (09/10/2020 9:45 AM OBSTETRICS GYNECOLOGY MD): Improving with the vestibular therapy Assessment & Plan (08/19/2020 2:12 PM OBSTETRICS GYNECOLOGY MD): Patient has sxs consistent with vertigo. Unable [...] he also declines. Discussed going to the [facility] walk-in clinic to be evaluated and discuss [...] He has a psychiatry appointment tomorrow in [facility]. He is frustrated because he [...] hours because these visits are located in [facility] and [place], [place]. Advised he could increase the BuSpar [...] name and contact information at [facility] further same-day behavioral/mental health clinic as this is always available for evaluation as a walk in. He was thankful for the information will contact if he needs more assistance Assessment & Plan (05/18/2023 1:28 PM OBSTETRICS GYNECOLOGY MD): Patient has discontinued all his mental health [...] tid Assessment & Plan (09/10/2020 9:45 AM OBSTETRICS GYNECOLOGY MD): See anxiety Assessment & Plan (01/10/2019 10:54 [...] tid Assessment & Plan (09/10/2020 9:45 AM OBSTETRICS GYNECOLOGY MD): Start buspar 7.5tid Reviewed risks, benefit, alternatives, side effects and proper use. Assessment & Plan (08/19/2020 2:10 PM OBSTETRICS GYNECOLOGY MD): Discussed medication for anxiety. Declines at this [...] 03/31/2024 Assessment & Plan (05/18/2023 1:28 PM OBSTETRICS GYNECOLOGY MD): Neck pain seems to be continuing to [...] 023 Assessment & Plan (09/18/2022 3:28 PM OBSTETRICS GYNECOLOGY MD): Weight/BMI is in healthy range. Continue healthy [...] 03/31/2024 Assessment & Plan (09/17/2020 7:34 PM OBSTETRICS GYNECOLOGY MD): Already on Valtrex. Will try a little lotrisone to the area as may be a yeast component. If persists, will need an appointment for exam. May consider HSV antibodies. Denies STD/he is not high risk. Assessment & Plan (08/19/2020 2:09 PM OBSTETRICS GYNECOLOGY MD): Check HSV IGg and IGM for TypeI and Type II. (HERPES SELECT) Continue valtrex. BMI 20.0-20.9, adult 10/21/2019 021 Assessment & Plan (09/10/2020 9:45 AM OBSTETRICS GYNECOLOGY MD): Weight/BMI is in healthy range. Continue healthy lifestyle to maintain. Conjunctivitis 10/21/2019 03/31/2024 Assessment & Plan (10/21/2019 11:34 AM CDT): Conjunctivitis vs abrasion. Will treat with antibiotic drops. 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 Call if sxs worsen or don't resolve. 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 Assessment & Plan (10/15/2021 2:06 PM CDT): Continue Valtrex 500 mg 1 daily Has not had an outbreak in a long time Assessment & Plan (09/10/2020 9:45 AM OBSTETRICS GYNECOLOGY MD): Increase to valtrex 1gm daily Possible exposure to STD 01/30/2016 Dysuria 01/30/2016 04/11/2024 Chicken pox 02/06/2009 08/19/2020 Overview (06/01/2018): Overview: 1998 Chicken pox 02/06/2009 03/31/2024 Overview (06/03/2022): 1998 Encounters Date Type Department Care Team Description 05/12/2025 11:45 AM CDT Office Visit [facility] at [address] [phone] Ashley Bray NP Acute left eye pain (Primary Dx) 05/10/2025 6:15 PM CDT Office Visit [facility] at [address] [phone] Cindy Ramires NP Acute frontal sinusitis, recurrence not specified (Primary Dx) 05/06/2025 Telephone [facility] Family Medicine [address] [phone] Ellie Wbeer PA from Last 3 Months Immunizations Immunization [...] on file Legal Sex Male 12:13 PM OBSTETRICS GYNECOLOGY MD Gender Identity Not on file Sexual Orientation [...] (153 lb) 05/12/2025 11:30 AM CDT Height 180.3 cm (5' 11) 01/10/2025 [...] patient's age to complete this topic Insurance [facility] [place] Care Teams Die Cast Supervisor Relationship Specialty Start Date End Date Ellie Weber PA [address] [facility] [address] [place] [address] PCP - General Internal Medicine 12/11/18
--- OUTSIDE RECORDS SUMMARY | 2025-05-12 13:04 | XMS_ITS | Encounter Summary ---
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
--- OUTSIDE RECORDS SUMMARY | 2025-05-12 13:04 | XMS_ITS | Encounter Summary ---
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
[2025-05-12 15:58] VITALS: BP 100/70; PULSE 74; RESP 15; TEMP 36.7; O2SAT 100
--- OUTSIDE RECORDS SUMMARY | 2025-05-12 17:14 | XMS_ITS | Clinical Summary ---
Author Organization [facility] Address [address] [facility] [place] [address] Care Team Providers Care Manager Mutual Fund Name Role Phone Ellie Weber PA-C Primary Care Provider [phone] -[phone] Source Comments [facility] Affiliates and Associated Physician Practices is amultiple site organization consisting of ambulatory clinics and hospital sitesin [place], [place], [place] and [place]. This disclosure is being madepursuant to the Care Everywhere program and may not contain all information available regarding this patient. 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 [place] [address] Care Teams Manager Mutual Fund Relationship Specialty Start Date End Date Ellie Weber PA-C [address] [phone] PCP - General Physician Box Loader 02/07/22
--- OUTSIDE RECORDS SUMMARY | 2025-05-12 17:14 | XMS_ITS | Encounter Summary ---
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 [address] [place] [address] PCP - General Internal Medicine 12/11/18 documented as of this encounter
--- OUTSIDE RECORDS SUMMARY | 2025-05-12 17:16 | XMS_ITS | Clinical Summary ---
Author Organization [facility] Address [address] [place] [id number] Care Team Providers Care Salesforce Trainer Name Role Phone Ellie Weber Primary Care Provider [phone]- [phone] Allergies Active Allergy Reactions Criticality Noted Date [...] (04/11/2024 12:36 PM CDT): Patient saw a b2b account executive and told the rash was eczema. Has [...] PPI Assessment & Plan (09/10/2020 9:45 AM PROFILE GRINDER TECHNICIAN): Discussed GERD at length including anatomy, behavioral changes (raise HOB, meal timings), dietary changes and medication options. Reviewed risks, benefits alternatives, side effects and proper use. Followup if sxs worsen or has hematochezia or hematemeis. Vertigo 08/19/2020 Assessment & Plan (09/10/2020 9:45 AM PROFILE GRINDER TECHNICIAN): Improving with the vestibular therapy Assessment & Plan (08/19/2020 2:12 PM PROFILE GRINDER TECHNICIAN): Patient has sxs consistent with vertigo. Unable [...] he also declines. Discussed going to the [facility] walk-in clinic to be evaluated and [...] a psychiatry appointment tomorrow in [facility]. He is frustrated because he feels like [...] visits are located in [facility] and [place], [place]. Advised he could increase the BuSpar [...] assistance. Provided name and contact information at [facility] further same-day behavioral/mental health clinic as this is always available for evaluation as a walk in. He was thankful for the information will contact if he needs more assistance Assessment & Plan (05/18/2023 1:28 PM PROFILE GRINDER TECHNICIAN): Patient has discontinued all his mental health [...] tid Assessment & Plan (09/10/2020 9:45 AM PROFILE GRINDER TECHNICIAN): See anxiety Assessment & Plan (01/10/2019 10:54 [...] tid Assessment & Plan (09/10/2020 9:45 AM PROFILE GRINDER TECHNICIAN): Start buspar 7.5tid Reviewed risks, benefit, alternatives, side effects and proper use. Assessment & Plan (08/19/2020 2:10 PM PROFILE GRINDER TECHNICIAN): Discussed medication for anxiety. Declines at this [...] 03/31/2024 Assessment & Plan (05/18/2023 1:28 PM PROFILE GRINDER TECHNICIAN): Neck pain seems to be continuing to [...] 023 Assessment & Plan (09/18/2022 3:28 PM PROFILE GRINDER TECHNICIAN): Weight/BMI is in healthy range. Continue healthy [...] 03/31/2024 Assessment & Plan (09/17/2020 7:34 PM PROFILE GRINDER TECHNICIAN): Already on Valtrex. Will try a little lotrisone to the area as may be a yeast component. If persists, will need an appointment for exam. May consider HSV antibodies. Denies STD/he is not high risk. Assessment & Plan (08/19/2020 2:09 PM PROFILE GRINDER TECHNICIAN): Check HSV IGg and IGM for TypeI and Type II. (HERPES SELECT) Continue valtrex. BMI 20.0-20.9, adult 10/21/2019 021 Assessment & Plan (09/10/2020 9:45 AM PROFILE GRINDER TECHNICIAN): Weight/BMI is in healthy range. Continue healthy lifestyle to maintain. Conjunctivitis 10/21/2019 03/31/2024 Assessment & Plan (10/21/2019 11:34 AM CDT): Conjunctivitis vs abrasion. Will treat with antibiotic drops. 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 Call if sxs worsen or don't resolve. 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 Assessment & Plan (10/15/2021 2:06 PM CDT): Continue Valtrex 500 mg 1 daily Has not had an outbreak in a long time Assessment & Plan (09/10/2020 9:45 AM PROFILE GRINDER TECHNICIAN): Increase to valtrex 1gm daily Possible exposure to STD 01/30/2016 Dysuria 01/30/2016 04/11/2024 Chicken pox 02/06/2009 08/19/2020 Overview (06/01/2018): Overview: 1998 Chicken pox 02/06/2009 03/31/2024 Overview (06/03/2022): 1998 Encounters Date Type Department Care Team Description 05/12/2025 11:45 AM CDT Office Visit [facility] at [address] [phone] Ashley Bray NP Acute left eye pain (Primary Dx) 05/10/2025 6:15 PM CDT Office Visit [facility] at [address] [phone] Cindy Ramires NP Acute frontal sinusitis, recurrence not specified (Primary Dx) 05/06/2025 Telephone [facility] [address] [phone] Ellie Weber PA from Last 3 [...] on file Legal Sex Male 12:13 PM PROFILE GRINDER TECHNICIAN Gender Identity Not on file Sexual [...] patient's age to complete this topic Insurance [facility] [place] Care Teams Salesforce Trainer Relationship Specialty Start Date End Date Ellie Weber PA [address] [facility] [address] [place] [address] PCP - General Internal Medicine 12/11/18
--- OUTSIDE RECORDS SUMMARY | 2025-05-12 17:16 | XMS_ITS | Encounter Summary ---
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
--- OUTSIDE RECORDS SUMMARY | 2025-05-12 17:16 | XMS_ITS | Encounter Summary ---
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 [address] [place] [address] PCP - General Internal Medicine 12/11/18 documented as of this encounter
--- NOTE | 2025-05-12 17:28 | ED_ITS ---
HPI - Eye Problem General Chief complaint: Eye Problems Stated complaint: Pain left eye Time Seen by Provider: 05/12/25 17:02 Source: patient Mode of arrival: ambulatory Limitations: no limitations History of Present Illness HPI Narrative: Patient is a 29-year-old male who presents the ED with report of left eye pain. Patient reports having sinus pressure/congestion for past 2 days. Was seen in urgent care and started on antibiotics. States he had been having pain throughout his left forehead, left facial cheek but today, began having increased pain in his left eye. Denies vision changes. Denies fevers. Patient does wear glasses. Has not taken anything for pain. Related Data Allergies Allergy/AdvReac Type Severity Reaction Status Date / Time meloxicam AdvReac Headache Verified 05/12/25 15:53 Review of Systems Review of Systems: All systems reviewed & are unremarkable except as noted in HPI. All systems reviewed & are unremarkable except as noted in HPI and below Exam Narrative: GENERAL: Well appearing, well-nourished, non-toxic, in no acute distress. HEAD: Normocephalic, atraumatic. EYES: PERRL/EOMI, conjunctiva clear. No nystagmus. Normal ROM of eyes. No periorbital swelling or erythema. Slight tenderness over frontal and ethmoid sinuses. RESPIRATORY: Airway patent, respirations nonlabored. CARDIOVASCULAR: Regular rate and rhythm MUSCULOSKELETAL: Moves all extremities. No gross deformities. SKIN: Warm, dry, normal color. NEURO: A&O X3. Speech clear. PSYCHIATRIC: Appropriate mood and affect. Normal interaction. Course Vital Signs Vital signs: Vital Signs Temperature 98.1 F 05/12/25 12:18 Pulse Rate 68 05/12/25 12:18 Respiratory Rate 18 05/12/25 12:18 Blood Pressure 154/100 H 05/12/25 12:18 Pulse Oximetry 100 05/12/25 12:18 Oxygen Delivery Room Air 05/12/25 12:18 Temperature 98.0 F 05/12/25 15:58 Pulse Rate 68 05/12/25 17:48 Respiratory Rate 14 05/12/25 17:48 Blood Pressure 103/68 05/12/25 17:48 Pulse Oximetry 99 05/12/25 17:48 Oxygen Delivery Room Air 05/12/25 12:18 MDM - Eye Problem MDM Narrative Medical decision making narrative: Visual acuity intact. Patient denying any vision changes. Fluorescein staining with Wood's lamp examination was performed, no evidence of corneal or conjunctival abrasion. IOP evaluated, normal 14-15. Low suspicion for acute ocular emergency at this time. Suspicious for sinus infection causing symptoms. Discussed continued management of such including the antibiotics that he was already prescribed. Advised patient to take Tylenol/ibuprofen, discussed additional uqbx-tce-[id number] therapies to try. Will refer to [facility]. Discussed strict return precautions. Patient in agreement plan. Discharged in stable condition. Medical Records Attestation: I reviewed the patient's medical records. Discharge Plan Discharge Clinical Impression: Pain around left eye Sinus infection Qualifiers: Sinusitis location: unspecified location Chronicity: acute Recurrence: non- recurrent Qualified Code(s): J01.90 - Acute sinusitis, unspecified Patient Disposition: Home Condition: Stable Instructions: Antibiotic Form, Rhinosinusitis (ED), Acute Headache (ED) Additional Instructions: Continue antibiotics as prescribed for sinus infection. Recommend Tylenol and Ibuprofen for discomfort and/or fevers. Recommend [id number] cough and cold medicines for symptom relief - Mucinex, DayQuil, NyQuil, Sudafed. Follow with primary care doctor and/or Ophthalmology for further evaluation as needed. Return to the ED if you worsening or severe pain, vision changes, persistent fevers, swelling around eye, or any other symptoms of concern. Patient Language: Spanish Prescriptions: No Action ibuprofen 600 mg tablet 600 mg PO Q6H PRN (Reason: pain) Qty: 30 0RF Benadryl 2 % gel 1 applic topical BID PRN (Reason: skin irritation) Qty: 103 0RF hydrocodone-acetaminophen 5-325 mg tablet 1 tablet PO Q8H PRN (Reason: pain) Qty: 14 0RF methocarbamol 750 mg tablet 750 mg PO TID PRN (Reason: pain) Qty: 20 0RF cyclobenzaprine 5 mg tablet 5 mg PO HS PRN (Reason: muscle spasm) Qty: 10 0RF naproxen 250 mg tablet 250 mg PO BID PRN (Reason: pain) Qty: 14 0RF levofloxacin 500 mg tablet 500 mg PO DAILY Qty: 10 0RF acetaminophen 500 mg tablet 1,000 mg PO TID PRN (Reason: maximiliano) 7 Days Qty: 42 0RF ibuprofen 800 mg tablet 800 mg PO TID PRN (Reason: pain) 7 Days Qty: 21 0RF Follow-up/Referrals: James Garrido [Outside] Referral Note: OPHTHALMOLOGY James Sosa [Outside] Referral Note: OPHTHALMOLOGY Tia,REJI Argueta [Primary Care Provider, Unknown] Time of Disposition: 17:34
[2025-05-12 17:48] VITALS: BP 103/68; PULSE 68; RESP 14; O2SAT 99
[2025-05-12] MEDS: IBUPROFEN 600 MG TABLET PO (17:48)
== END 2025-05-12 17:49 | disposition home or self-care (01) ==
PROVIDERS: Emergency Provider Physician Assistant; PCP Physician Assistant
DX: J01.90 Acute sinusitis, unspecified (principal)
CPT/HCPCS: 99282; A9270